=== PATIENT | female | born 1970 | race Caucasian/White ===

== ENCOUNTER → 2016-11-03 | Outpatient (REF) | payer MEDICAID | LOC: M LAB REF 09:15 | PROVIDERS: ATTEND Physician Assistant | DX: N39.0 Urinary tract infection, site not specified (principal) ==

== ENCOUNTER → 2016-11-16 | Outpatient (REF) | payer MEDICAID | LOC: M LAB REF 16:25 | PROVIDERS: ATTEND Physician Assistant | DX: N39.0 Urinary tract infection, site not specified (principal) ==

== ENCOUNTER → 2017-03-08 | Outpatient (REF) | payer MEDICAID ==
[2017-03-08 13:44] LABS: MEAN CORPUSCULAR HEMOGLOBIN 36.1 pg (27.0-33.0); MEAN CORPUSCULAR HGB CONC 33.8 g/dl (32.0-36.5); MEAN CORPUSCULAR VOLUME 106.6 fl (80.0-96.0); RED CELL DISTRIBUTION WIDTH 16.2 % (11.5-14.5)
[2017-03-08 13:59] LABS: BANDS 1 % (< 11); BASOPHILS 2 % (0-4); EOSINOPHILS 1 % (0-5)
[2017-03-08 14:00] LABS: ANISOCYTOSIS 1+; POLYCHROMASIA 1+
[2017-03-08 14:03] LABS: FREE T4 0.99 NG/DL (0.76-1.46)
== END ==
LOC: M SFHCPLAZ 11:04
PROVIDERS: ATTEND Family Medicine
DX: D75.89 Other specified diseases of blood and blood-forming organs (principal); R73.01 Impaired fasting glucose

== ENCOUNTER → 2017-08-23 | Outpatient (REF) | payer OTHER ==
[2017-08-23 12:18] LABS: BASO # 0.1 10^3/uL (0.0-0.2); BASO % 1.3 % (0.0-1.0); EOS # 0.1 10^3/uL (0.0-0.50); EOS % 1.8 % (0.0-3.0); IMMATURE GRANULOCYTE % 0.4 % (0-0); LYMPH # 2.8 10^3/uL (1.5-4.5); LYMPH % 34.9 % (24.0-44.0); MEAN CORPUSCULAR HEMOGLOBIN 35.4 pg (27.0-33.0); MEAN CORPUSCULAR HGB CONC 33.8 g/dl (32.0-36.5); MEAN CORPUSCULAR VOLUME 104.9 fl (80.0-96.0); MONO # 0.6 10^3/uL (0.0-0.8); MONO % 8.1 % (0.0-5.0); NEUTROPHILS # 4.2 10^3/uL (1.8-7.7); NEUTROPHILS % 53.5 % (36.0-66.0); PLATELET COUNT, AUTOMATED 352 10^3/uL (150-450); RED CELL DISTRIBUTION WIDTH 15.9 % (11.5-14.5); WHITE BLOOD COUNT 7.9 10^3/uL (4.0-10.0)
[2017-08-23 12:27] LABS: ALBUMIN 3.5 GM/DL (3.2-5.2); ALBUMIN/GLOBULIN RATIO 1.13 (1.00-1.93); ALKALINE PHOSPHATASE 57 U/L (45-117); ALT/SGPT 21 U/L (12-78); ANION GAP 7 MEQ/L (8-16); AST/SGOT 9 U/L (15-37); BLOOD UREA NITROGEN 12 MG/DL (7-18); CARBON DIOXIDE LEVEL 26 MEQ/L (21-32); CHLORIDE LEVEL 109 MEQ/L (98-107); CHOLESTEROL LEVEL 185 MG/DL (<200); GLOMERULAR FILTRATION RATE > 60.0 (>58); GLUCOSE, FASTING 81 MG/DL (70-105); POTASSIUM SERUM 4.3 MEQ/L (3.5-5.1); SODIUM LEVEL 142 MEQ/L (136-145); TOTAL PROTEIN 6.6 GM/DL (6.4-8.2); TRIGLYCERIDES LEVEL 125 MG/DL (<150)
[2017-08-23 12:29] LABS: VITAMIN B12 LEVEL 516 PG/ML (247-911)
[2017-08-23 14:28] LABS: PRETREATED FOLATE FOR RBCFOL 11.4 NG/ML
== END ==
LOC: M SFHCPLAZ 08:03
PROVIDERS: ATTEND Family Medicine
DX: E53.8 Deficiency of other specified B group vitamins (principal); R73.01 Impaired fasting glucose

== ENCOUNTER → 2018-02-25 | Outpatient (REF) | payer OTHER ==
[2018-02-25 12:45] LABS: BASO # 0.1 10^3/uL (0.0-0.2); BASO % 1.4 % (0.0-1.0); EOS # 0.3 10^3/uL (0.0-0.50); EOS % 3.7 % (0.0-3.0); HEMATOCRIT 43.1 % (36.0-47.0); HEMOGLOBIN 14.8 g/dl (12.0-15.5); IMMATURE GRANULOCYTE % 0.3 % (0-3.0); LYMPH # 2.9 10^3/uL (1.5-4.5); MEAN CORPUSCULAR HEMOGLOBIN 35.6 pg (27.0-33.0); MEAN CORPUSCULAR HGB CONC 34.3 g/dl (32.0-36.5); MEAN CORPUSCULAR VOLUME 103.6 fl (80.0-96.0); MONO # 0.6 10^3/uL (0.0-0.8); NEUTROPHILS # 3.5 10^3/uL (1.8-7.7); NEUTROPHILS % 47.6 % (36.0-66.0); PLATELET COUNT, AUTOMATED 330 10^3/uL (150-450); RED BLOOD COUNT 4.16 10^6/uL (4.00-5.40); RED CELL DISTRIBUTION WIDTH 16.5 % (11.5-14.5); WHITE BLOOD COUNT 7.4 10^3/uL (4.0-10.0)
[2018-02-25 13:23] LABS: ALBUMIN 3.7 GM/DL (3.2-5.2); ALBUMIN/GLOBULIN RATIO 1.09 (1.00-1.93); ALKALINE PHOSPHATASE 55 U/L (45-117); ALT/SGPT 20 U/L (12-78); ANION GAP 5 MEQ/L (8-16); AST/SGOT 15 U/L (7-37); BILIRUBIN,TOTAL 0.4 MG/DL (0.2-1.0); BLOOD UREA NITROGEN 9 MG/DL (7-18); CALCIUM LEVEL 8.8 MG/DL (8.5-10.1); CARBON DIOXIDE LEVEL 26 MEQ/L (21-32); CHLORIDE LEVEL 111 MEQ/L (98-107); CREATININE FOR GFR 0.72 MG/DL (0.55-1.30); GLOMERULAR FILTRATION RATE > 60.0 (>58); GLUCOSE, FASTING 67 MG/DL (70-100); POTASSIUM SERUM 4.3 MEQ/L (3.5-5.1); PTH INTACT 60.9 PG/ML (18.5-88.0); SODIUM LEVEL 142 MEQ/L (136-145); TOTAL 25(OH) VITAMIN D 35.6 NG/ML (30.0-100.0); TOTAL PROTEIN 7.1 GM/DL (6.4-8.2)
[2018-02-26 14:15] LABS: INSULIN LEVEL 4.5 uIU/mL (2.6-24.9)
== END ==
LOC: M SFHCPLAZ 10:00
DX: D75.89 Other specified diseases of blood and blood-forming organs (principal); E55.9 Vitamin D deficiency, unspecified; R73.01 Impaired fasting glucose
CPT/HCPCS: 83525

== ENCOUNTER → 2018-05-17 | Outpatient (REF) | payer OTHER ==
[2018-05-17 12:35] LABS: CONTROL LINE UCG INT CTR LINE PRESENT; URINE PREG TEST NEGATIVE (NEGATIVE)
== END ==
LOC: M LAB REF 12:23
DX: Z32.00 Encounter for pregnancy test, result unknown (principal)

== ENCOUNTER → 2018-08-25 | Outpatient (REF) | payer OTHER ==
[2018-08-25 11:37] LABS: RETIC HEMOGLOBIN EQUIVALENT 39.5 pg (24-36); RETICULOCYTE # 75.7 10^9/L (17-77); RETICULOCYTE % 1.7 % (0.5-1.5)
[2018-08-25 11:45] LABS: HEMATOCRIT 46.4 % (36.0-47.0)
[2018-08-25 12:03] LABS: ESTIMATED AVERAGE GLUCOSE 100 MG/DL (60-110); HEMOGLOBIN A1c 5.1 %
[2018-08-25 12:32] LABS: ALKALINE PHOSPHATASE 58 U/L (45-117); ALT/SGPT 21 U/L (12-78); ANION GAP 9 MEQ/L (8-16); AST/SGOT 13 U/L (7-37); BILIRUBIN,TOTAL 0.5 MG/DL (0.2-1.0); BLOOD UREA NITROGEN 10 MG/DL (7-18); CARBON DIOXIDE LEVEL 24 MEQ/L (21-32); CHLORIDE LEVEL 109 MEQ/L (98-107); CREATININE FOR GFR 0.76 MG/DL (0.55-1.30); GLOMERULAR FILTRATION RATE > 60.0 (>58); GLUCOSE, FASTING 69 MG/DL (70-100); POTASSIUM SERUM 4.8 MEQ/L (3.5-5.1); PTH INTACT 76.8 PG/ML (18.5-88.0); SODIUM LEVEL 142 MEQ/L (136-145); TOTAL PROTEIN 6.8 GM/DL (6.4-8.2)
[2018-08-25 12:33] LABS: ALBUMIN 3.5 GM/DL (3.2-5.2); ALBUMIN/GLOBULIN RATIO 1.06 (1.00-1.93); TOTAL 25(OH) VITAMIN D 37.7 NG/ML (30.0-100.0)
[2018-08-26 11:07] LABS: PRETREATED FOLATE FOR RBCFOL 11.5 NG/ML; RBC FOLATE 520.5 NG/ML (280-791)
== END ==
LOC: M SFHCPLAZ 09:51
DX: E55.9 Vitamin D deficiency, unspecified (principal); R73.01 Impaired fasting glucose; E53.8 Deficiency of other specified B group vitamins

== ENCOUNTER → 2019-03-03 | Outpatient (REF) | payer OTHER ==
[2019-03-03 13:14] LABS: BASO # 0.1 10^3/uL (0.0-0.2); BASO % 1.5 % (0.0-1.0); EOS # 0.1 10^3/uL (0.0-0.50); EOS % 1.5 % (0.0-3.0); HEMATOCRIT 47.7 % (36.0-47.0); HEMOGLOBIN 16.2 g/dl (12.0-15.5); LYMPH # 2.5 10^3/uL (1.5-4.5); LYMPH % 36.5 % (24.0-44.0); MONO # 0.5 10^3/uL (0.0-0.8); MONO % 7.6 % (0.0-5.0); NEUTROPHILS # 3.6 10^3/uL (1.8-7.7); NEUTROPHILS % 52.6 % (36.0-66.0); PLATELET COUNT, AUTOMATED 280 10^3/uL (150-450); WHITE BLOOD COUNT 6.8 10^3/uL (4.0-10.0)
[2019-03-03 13:26] LABS: HEMOGLOBIN A1c 5.4 %
[2019-03-03 13:36] LABS: ALBUMIN 3.7 GM/DL (3.2-5.2); ALT/SGPT 21 U/L (12-78); BILIRUBIN,TOTAL 0.7 MG/DL (0.2-1.0); BLOOD UREA NITROGEN 12 MG/DL (7-18); CALCIUM LEVEL 9.4 MG/DL (8.5-10.1); CARBON DIOXIDE LEVEL 25 MEQ/L (21-32); CHLORIDE LEVEL 108 MEQ/L (98-107); CREATININE FOR GFR 0.91 MG/DL (0.55-1.30); FERRITIN 96 NG/ML (8-252); FREE T4 0.94 NG/DL (0.76-1.46); GLOMERULAR FILTRATION RATE > 60.0 (>58); GLUCOSE, FASTING 78 MG/DL (70-100); IRON (FE) 187 UG/DL (50-170); PERCENT SATURATION 48.2 % (13.2-45.0); POTASSIUM SERUM 4.4 MEQ/L (3.5-5.1); SODIUM LEVEL 141 MEQ/L (136-145); TOTAL IRON BINDING CAPACITY 388 UG/DL (250-450); TOTAL PROTEIN 7.1 GM/DL (6.4-8.2)
[2019-03-03 14:35] LABS: APPEARANCE, URINE HAZY (CLEAR); BACTERIA, URINE AUTO 1+ (NEGATIVE); BILIRUBIN, URINE AUTO NEGATIVE (NEGATIVE); BLOOD, URINE BLOOD 1+ (NEGATIVE); CALCIUM OXALATE CRYSTALS SMALL; COLOR, URINE YELLOW (YELLOW); GLUCOSE, URINE (UA) AUTO NEGATIVE (NEGATIVE); KETONE, URINE AUTO NEGATIVE (NEGATIVE); LEUKOCYTE ESTERASE, URINE AUTO NEGATIVE (NEGATIVE); MALB URINE SIEMENS 13.4 MG/L; MAU/CREAT RATIO 4.1 MCG/MG (0.0-30.0); MUCUS, URINE LARGE (NEGATIVE); NITRITE, URINE AUTO NEGATIVE (NEGATIVE); PROTEIN, URINE AUTO NEGATIVE (NEGATIVE); RBC, URINE AUTO 2 /HPF (0-3); SPECIFIC GRAVITY URINE AUTO 1.025 (1.002-1.035); SQUAMOUS EPITHELIAL CELL UR AU 6 /HPF (0-6); UROBILINOGEN, URINE AUTO 0.2 mg/dL (0.0-2.0); WBC, URINE AUTO 1 /HPF (0-3)
== END ==
LOC: M SFHCPLAZ 10:06
PROVIDERS: ATTEND Family Medicine
DX: D75.89 Other specified diseases of blood and blood-forming organs (principal); R73.01 Impaired fasting glucose

== ENCOUNTER → 2019-04-15 | Outpatient (REF) | payer OTHER | LOC: M LAB REF 12:38 | PROVIDERS: ATTEND Physician Assistant | DX: R30.0 Dysuria (principal) ==

== ENCOUNTER → 2019-09-04 | Outpatient (REF) | payer OTHER ==
[2019-09-04 12:53] LABS: BASO # 0.1 10^3/uL (0.0-0.2); BASO % 1.2 % (0.0-1.0); EOS # 0.2 10^3/uL (0.0-0.5); EOS % 2.1 % (0.0-3.0); HEMATOCRIT 47.3 % (36.0-47.0); HEMOGLOBIN 16.1 g/dl (12.0-15.5); LYMPH # 3.2 10^3/uL (1.5-5.0); LYMPH % 42.5 % (24.0-44.0); MEAN CORPUSCULAR HEMOGLOBIN 36.7 pg (27.0-33.0); MEAN CORPUSCULAR VOLUME 107.7 fl (80.0-96.0); MONO # 0.6 10^3/uL (0.0-0.8); MONO % 8.4 % (0.0-5.0); NEUTROPHILS # 3.5 10^3/uL (1.5-8.5); NEUTROPHILS % 45.7 % (36.0-66.0); PLATELET COUNT, AUTOMATED 271 10^3/uL (150-450); RED BLOOD COUNT 4.39 10^6/uL (4.00-5.40); WHITE BLOOD COUNT 7.6 10^3/uL (4.0-10.0)
[2019-09-04 13:03] LABS: CHOLESTEROL LEVEL 206 MG/DL (<200); CHOLESTEROL RISK RATIO 2.263 (<5); HDL CHOLESTEROL 91 MG/DL (>40); LDL CHOLESTEROL 92 MG/DL (<100); NON-HDL-C 115 MG/DL; TRIGLYCERIDES LEVEL 116 MG/DL (<150)
[2019-09-04 13:09] LABS: VITAMIN B12 LEVEL 712 PG/ML (247-911)
[2019-09-04 14:14] LABS: HEMOGLOBIN A1c 5.1 %
== END ==
LOC: M SFHCPLAZ 09:45
PROVIDERS: ATTEND Family Medicine
DX: E53.8 Deficiency of other specified B group vitamins (principal); R73.01 Impaired fasting glucose; D75.89 Other specified diseases of blood and blood-forming organs

== ENCOUNTER → 2020-08-26 | Outpatient (REF) | payer MEDICARE, MEDICAID ==
[2020-08-26 17:33] LABS: BASO # 0.1 10^3/uL (0.0-0.2); BASO % 1.3 % (0.0-1.0); EOS # 0.2 10^3/uL (0.0-0.5); EOS % 2.1 % (0.0-3.0); HEMOGLOBIN 16.7 g/dl (12.0-15.5); LYMPH % 32.7 % (24.0-44.0); MEAN CORPUSCULAR HEMOGLOBIN 36.1 pg (27.0-33.0); MEAN CORPUSCULAR HGB CONC 32.7 g/dl (32.0-36.5); MEAN CORPUSCULAR VOLUME 110.4 fl (80.0-96.0); MONO # 0.7 10^3/uL (0.0-0.8); MONO % 7.3 % (0.0-5.0); NEUTROPHILS # 5.1 10^3/uL (1.5-8.5); NEUTROPHILS % 56.2 % (36.0-66.0); PLATELET COUNT, AUTOMATED 329 10^3/uL (150-450); RED BLOOD COUNT 4.62 10^6/uL (4.00-5.40); WHITE BLOOD COUNT 9.1 10^3/uL (4.0-10.0)
[2020-08-26 17:50] LABS: ALT/SGPT 26 U/L (12-78); BILIRUBIN,TOTAL 0.7 MG/DL (0.2-1.0); BLOOD UREA NITROGEN 10 MG/DL (7-18); CALCIUM LEVEL 9.3 MG/DL (8.5-10.1); CARBON DIOXIDE LEVEL 27 MEQ/L (21-32); CHLORIDE LEVEL 108 MEQ/L (98-107); FERRITIN 143 NG/ML (8-252); GLOMERULAR FILTRATION RATE > 60.0 (>58); GLUCOSE, FASTING 90 MG/DL (70-100); IRON (FE) 163 UG/DL (50-170); PERCENT SATURATION 40.3 % (13.2-45.0); SODIUM LEVEL 141 MEQ/L (136-145); TOTAL IRON BINDING CAPACITY 404 UG/DL (250-450); TOTAL PROTEIN 7.3 GM/DL (6.4-8.2)
[2020-08-31 15:09] LABS: ERYTHROPOIETIN 5.3 mIU/mL (2.6-18.5); INSULIN LEVEL 8.3 uIU/mL (2.6-24.9)
== END ==
LOC: M SFHCPLAZ 14:12
PROVIDERS: ATTEND Family Medicine
DX: E53.8 Deficiency of other specified B group vitamins (principal); R73.01 Impaired fasting glucose; D75.89 Other specified diseases of blood and blood-forming organs
CPT/HCPCS: 36415; 80053; 81256; 82668; 82728; 83525; 83550; 85025; 85046; G0463

== ENCOUNTER → 2020-09-07 | Outpatient (CLI) | payer MEDICARE, MEDICAID ==
--- NOTE | 2020-09-07 09:22 | REP ---
INDICATION: HTN, MACROCYTOSIS, ERTHROCYTOSIS. COMPARISON: None. TECHNIQUE: COMPLETE ABDOMINAL ULTRASOUND; RENAL ARTERY ULTRASOUND WITH DOPPLER AND COLOR IMAGING FINDINGS: COMPLETE ABDOMINAL ULTRASOUND: There is no hepatomegaly. There are least 3 hyperechoic masses in the right lobe of the liver. Largest 1.6 x 1.6 x 1.2 cm subcapsular the anterior inferior right hepatic lobe. Another near the henrietta hepatis is 1 x 1 x 0.7 cm the 3rd posteriorly in the right hepatic lobe is 1.3 x 1.6 x 1.2 cm. No biliary dilatation, cyst, adjacent ascites or other acute finding. Gallbladder shows adequate distention without stone, sludge or pericholecystic fluid wall thickness is 1.6 mm. Common duct is 3 mm without stone. Very limited evaluation of the pancreas due to bowel gas shadowing. Spleen is 9 x 9 x 2.6 cm, homogeneous and without adjacent fluid. The right kidney is 10.8 x 5.8 x 5.3 cm with an 11 x 11 by 5 mm hypoechoic focus in the upper pole suggesting small cyst. The left kidney is 10.4 x 4.9 x 5.3 cm.. Suggest a column of Farooq. No mass or cyst. The abdominal aorta is maximum diameters of 2 cm proximally, 1.6 cm in the mid aorta and 1.5 cm distally. RENAL ARTERY DOPPLER ULTRASOUND: RIGHT: The right kidney has a length of 10.8 cm. Peak renal artery velocity is 62.7 cm/S. Peak aortic velocity is 69.4 cm/S. The renal aortic ratio 0.9. Resistive index for upper mid and lower pole is a 0.54, 0.52 and 0.51. Acceleration time for the upper, mid and lower poles is 0.033, 0.039 and 0.02 sec. LEFT: Left kidney length is 10.4 cm. Peak renal artery velocity 87.3 cm/S, peak aortic velocity 69.4 cm/S, renal aortic ratio 1.3. Resistive index for upper mid and lower poles is 0.61, 0.53 and 0.53. Acceleration time for upper mid and lower poles is 0.014, 0.033 and 0.017 sec. IMPRESSION: 1. At least 3 hyperechoic foci in the liver which are homogeneous and most consistent with a benign hepatic hemangiomas. Follow-up ultrasound in 6 months would be recommended. 2. Liver is otherwise unremarkable in the gallbladder, common bile duct, spleen, kidneys and aorta were unremarkable. 3. Pancreas limited in evaluation due to gas shadowing. 4. There is no Doppler renal artery ultrasound evidence for renal artery stenosis. <Electronically signed by Heladio Parisi > 09/07/20 0918
== END ==
LOC: M RAD 07:42
PROVIDERS: ATTEND Family Medicine
DX: R93.2 Abnormal findings on diagnostic imaging of liver and biliary tract (principal); D75.1 Secondary polycythemia; D75.89 Other specified diseases of blood and blood-forming organs; I10 Essential (primary) hypertension

== ENCOUNTER 2020-11-28 10:51 | Emergency (ER) | payer MEDICARE, MEDICAID ==
[~2020-11-28] VITALS: Ht 165.1 cm; Wt 86.0 kg
--- OUTSIDE RECORDS SUMMARY | 2020-11-28 11:04 | CCD ---
Author [facility] Address Unknown Phone Unavailable Care Team Providers Care Spray Drier Operator Helper Name Role Phone Caroline Balbuena Unavailable PROBLEMS Type Condition ICD9-CM Code [id number] Code Onset Dates Condition S tatus SNOMED Code Notes Problem IFG (impaired fasting glucose) R73.01 Active 3 47708141 Problem Macrocytosis D75.89 Active 338799746 Problem Nicotine addiction F17.200 Active 77307502 Problem Erythrocytosis D75.1 Active 752234462 Problem Vitamin D deficiency E55.9 Active 87681077 Problem Hypertension, essential I10 Active 17641164 Problem B12 deficiency E53.8 Active 096386828 Problem Herpetic gingivostomatitis B00.2 Active 48594 007 Problem Tinea versicolor B36.0 Active 74283250 Problem Breast cancer screening Z12.39 Active 64746162 8 Problem Cervical cancer screening Z12.4 Active 323769 001 ALLERGIES Allergen (clinical drug ingredient) Drug/Non Drug Allergy do cumented on EMR Reaction Allergy Type Onset Date Status codeine Codeine Sulfate([facility] Code:[address]-19) red bumb s and itching Drug Allergy Active ENCOUNTERS from 1972 to 2020-09-08 Encounter Location Date Provider Diagnosis [address] [address] Aug, Caroline Balbuena IMMUNIZATIONS No Information SOCIAL HISTORY Tobacco Use: Social History Observation Description Date Details (start date - stop date) Former Smoker Sex Assigned At : Social History Observation Description Sex Assigned At Unknown Language: Question Answer Notes Languages spoken: Serbian Temple: Question Answer Notes Temple No muslim beliefs that would impact health care. Sexual Hx: Question Answer Notes Had sex in the last 12 months (vaginal, oral, or anal)? Yes Have you ever had an STD? No with Men only Use protection? Yes How often? Most of the time Alcohol Screening: Question Answer Notes Did you have a drink containing alcohol in the past year? Ye s Points 3 Interpretation Positive How often did you have six or more drinks on one occas ion in the past year? Never (0 points) How many drinks did you have on a typica l day when you were drinking in the past year? 3 or 4 (1 point) How often did you have a drink containing alcohol in t he past year? Two to four times a month (2 points) BMI Care Goal Follow-Up Question Answer Notes Above Normal BMI Follow-Up Giving encouragement to exercise Tobacco Use: Question Answer Notes Are you a: former smoker REASON FOR REFERRAL No Information VITAL SIGNS No information MEDICATIONS Medication SIG (Take, Route, Frequency, Duration) Start Date En d Date Status Chlorthalidone 25 MG 1/2 tab Orally bid for 30 day(s) Aug, Active Vitamin D3 5000 unit 1 tablet Orally Once a day for 30 day(s) Active Vitamin B-12 2000 1 tablet Orally Once a day for 30 day(s) Active Valtrex 1 GM 2 tablets Orally BID for 1 days Active Fluconazole 150 MG 2 tabs now and repeat in 1 week Orally Active Tums 500 MG 2 tablet Orally bid for 30 day(s) February, Active Depo-Provera Intramuscular q 3 mos Activ e Calcium 600+D High Potency 600-400 MG-UNIT 1 tablet food Orally Twice a day for 30 day(s) Active PROCEDURES No Information RESULTS No Results REASON FOR VISIT extremities feel weak MEDICAL (GENERAL) HISTORY Type Description Date Medical History obesity Medical History tinea versicolor Medical History impaired fasting glucose Medical History macrocytosis without anemia Medical History Depo Provera use for control Medical History B12 deficiency-12/2011 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, 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 [facility] Medical History hypertension, essential Surgical History none Hospitalization History none Goals Section No Information Health Concerns No Information MEDICAL EQUIPMENT No Information MENTAL STATUS No Information FUNCTIONAL STATUS No Information ASSESSMENTS No Information PLAN OF TREATMENT Medication Medication Name Sig Start Date Stop Date Fluconazole 150 MG 2 tabs now and repeat in 1 week Orally Chlorthalidone 25 MG 1/2 tab Orally bid for 30 day(s) Aug, Vitamin D3 5000 unit 1 tablet Orally Once a day for 30 day(s) Vitamin B-12 2000 1 tablet Orally Once a day for 30 day(s) Valtrex 1 GM 2 tablets Orally BID for 1 days Calcium 600+D High Potency 600-400 MG-UNIT 1 tablet food Orally Twice a day for 30 day(s) Next Appt Details Provider Name:Caroline Balbuena, 2019-10 11:00:00 AM, [address] [place] [address], [phone], Provider Name:Clemente Olmos, 2020-09-12 0 1:30:00 PM, [address] [place] [address], [phone], Insurance Providers Payer Name Payer Address Payer Phone Insured Name Patient Relati onship to Insured Coverage Start Date Coverage End Date [facility] [address] [facility] [id number] THERESA JOYCE A self [facility]ICAID [facility] [address] [facility] [address] [place]
--- OUTSIDE RECORDS SUMMARY | 2020-11-28 11:04 | CCD ---
Author Author [facility] Organization [facility] Address Unknown Phone Unavailable Care Team Providers Care Delivery Representative Name Role Phone Nickolas Clemente Unavailable PROBLEMS Type Condition ICD9-CM Code OXN34-MX Code Onset Dates Condition S tatus SNOMED Code Notes Problem IFG (impaired fasting glucose) R73.01 Active 3 57151419 Problem Macrocytosis D75.89 Active 801634584 Problem Nicotine addiction F17.200 Active 19332689 Problem Erythrocytosis D75.1 Active 768961368 Problem Vitamin D deficiency E55.9 Active 60052648 Problem Hypertension, essential I10 Active 87398569 Problem B12 deficiency E53.8 Active 715790757 Problem Herpetic gingivostomatitis B00.2 Active 63870 007 Problem Tinea versicolor B36.0 Active 07340935 Problem Breast cancer screening Z12.39 Active 95189139 8 Problem Cervical cancer screening Z12.4 Active 576853 001 ALLERGIES Allergen (clinical drug ingredient) Drug/Non Drug Allergy do cumented on EMR Reaction Allergy Type Onset Date Status codeine Codeine Sulfate([facility] Code:[address]-58) red bumb s and itching Drug Allergy Active ENCOUNTERS from 1972 to 2020-09-12 Encounter Location Date Provider Diagnosis [address] [address] Aug, 020 Clemente Olmos IMMUNIZATIONS No Information SOCIAL HISTORY Tobacco Use: Social History Observation Description Date Details (start date - stop date) Former Smoker Sex Assigned At : Social History Observation Description Sex Assigned At Unknown Language: Question Answer Notes Languages spoken: Luxembourgish Jehovah'S Witness: Question Answer Notes Jehovah'S Witness No evangelical beliefs that would impact health care. Sexual [...] MEDICATIONS Medication SIG (Take, Route, Frequency, Duration) Notes Start Da te End Date Status Calcium 600+D High Potency 600-400 MG-UNIT 1 tablet wi food Orally Twice a day for 30 day(s) Active Chlorthalidone 25 MG 1/2 tab Orally bid for 30 day(s) 2019 Active Fluconazole 150 MG 2 tabs now and repeat in 1 week Orally Active Vitamin B-12 2000 1 tablet Orally Once a day for 30 day(s) Active Depo-Provera Intramuscular q 3 mos Active Vitamin D3 5000 unit 1 tablet Orally Once a day for 30 day(s) Active Tums 500 MG 2 tablet Orally bid for 30 day(s) February, Active Valtrex 1 GM 2 tablets Orally BID for 1 days Active PROCEDURES No Information RESULTS No Results REASON FOR VISIT BP Reading MEDICAL (GENERAL) HISTORY Type Description Date Medical History obesity Medical History tinea versicolor Medical History impaired fasting glucose Medical History macrocytosis without anemia Medical History Depo Provera use for control Medical History B12 deficiency-12/2011 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, 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 [facility] Medical History hypertension, essential Surgical History none Hospitalization History none Goals Section No Information Health Concerns No Information MEDICAL EQUIPMENT No Information MENTAL STATUS No Information FUNCTIONAL STATUS No Information ASSESSMENTS No Information PLAN OF TREATMENT Next Appt Details Provider Name:Clemente Olmos, 2020-12-23 0 1:15:00 PM, [address] [place], [phone], Insurance Providers Payer Name Payer Address Payer Phone Insured Name Patient Relati onship to Insured Coverage Start Date Coverage End Date MEDICAID [employer] [address] [facility] [id number] [place] [facility] [address] [facility] [id number] THERESA JOYCE [facility] reading
--- OUTSIDE RECORDS SUMMARY | 2020-11-28 11:04 | CCD | Continuity of Care Document ---
Author Author [facility] Organization [facility] Address Unknown Phone Unavailable Care Team Providers Care Marketing Production Coordinator Name Role Phone Dwello DALI MCANLLY, Sarah Unavailable Unavailable Allergies, Adverse Reactions, Alerts Substance Reaction Status Criticality codeine Itching, Hives/Skin Rash Active No Information Medications Medication Instructions Dosage Effective Dates (start - stop) Sta tus Comments nitrofurantoin monohydrate/macrocrystals 100 mg capsule 1 tab po BID x 5 days - Active medroxyprogesterone 150 mg/mL intramuscular suspension IM every 10-13 weeks - Active nitrofurantoin monohydrate/macrocrystals 100 mg capsule 1 tab po BID x 5 days - No Longer Active Problems Condition Effective Dates (start - stop) Clinical Status C omments Body mass index (BMI) 31.0-31.9, adult - Body mass index (BMI) 31.0-31.9, adult - Body mass index (BMI) 30.0-30.9, adult - Body mass index (BMI) 32.0-32.9, adult - Frequency of micturition Urgency of urination Hesitancy of micturition Cystitis, unspecified with hematuria Encounter for surveillance of injectable contraceptive Human immunodeficiency virus [HIV] counseling Other sex counseling Encounter for oth general cnsl and advice on contraception Encounter for surveillance of injectable contraceptive 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 Encounter for surveillance of injectable contraceptive Encounter for surveillance of injectable contraceptive Encounter for surveillance of injectable contraceptive Encounter for surveillance of injectable contraceptive Human immunodeficiency virus [HIV] counseling Other sex counseling Encounter for oth general cnsl and advice on contraception Encounter for surveillance of injectable contraceptive 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 Encounter for screening for human papillomavirus (HPV) Encntr screen for infections w sexl mode of transmiss High risk heterosexual behavior Encounter for surveillance of injectable contraceptive Encounter for surveillance of injectable contraceptive Encounter for surveillance of injectable contraceptive Encounter for surveillance of injectable contraceptive Encounter for surveillance of injectable contraceptive Human immunodeficiency virus [HIV] counseling 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 Other sex counseling Encounter for oth general cnsl and advice on contraception Encounter for surveillance of injectable contraceptive Encounter for surveillance of injectable contraceptive Encounter for surveillance of injectable contraceptive Encounter for surveillance of injectable contraceptive Encounter for surveillance of injectable contraceptive Encounter for surveillance of injectable contraceptive Encounter for surveillance of injectable contraceptive Urgency of urination Acute cystitis without hematuria Human immunodeficiency virus [HIV] counseling Obesity, unspecified 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 Encounter for oth general cnsl and advice on contraception Encounter for surveillance of injectable contraceptive Encounter for oth screening for malignant neoplasm of breast Family history of malignant neoplasm of breast Encounter for surveillance of injectable contraceptive Encounter for surveillance of injectable contraceptive Encounter for surveillance of injectable contraceptive Encounter for surveillance of injectable contraceptive STI Counseling Family Planning Counseling CALENDER WIND UP HELPER Exam, Routine WWE HIV Counseling BCM Other, Start Breast screening BCM Other, Surveillance Contraceptive method surveillance - BCM Other, Surveillance BCM Other, Surveillance CALENDER WIND UP HELPER Exam, Routine WWE BCM Other, Start HIV Counseling BCM Other, Surveillance BCM Other, Surveillance BCM Other, Surveillance BCM Other, Surveillance BCM Other, Surveillance CALENDER WIND UP HELPER Exam, Routine WWE BCM Other, Start Procedures Procedure Date URINALYSIS NONAUTO W/O SCOPE OFFICE VISIT, EST URINE CULTURE/COLONY COUNT CVR Blood Pressure CVR Med.Svc. Height/Weight CVR Med.Svc. UTI Treatment CVR Restoration Ecologist.Svc. Other CVR Restoration Ecologist.Svc. STI / H Results Test Name Date and Time Measure Units Reference Range Abnormal Flag St atus Comments Panel Description: Urine Dipstick Final Urine Dipstick 14:31:10 Color: dark yellow; Glucose: negative; Blood: moderate; pH: 7.5; Protein: 1+; Nitrite: positive; Leukocytes: large A Final Advance Directives Directive Yes / No Effective Date File Name No Information Encounters Encounter Description Practice Location Reason(s) For Visit Diagnose s Date Provider Providers Copied on Encounter OFFICE VISIT, EST [facility], [address] [place] [address], [address] [place] [address], tel:[phone] [facility] Urinary Symptoms ( F) (chief complaint) Frequency of micturitionUrgency of urina tionHesitancy of micturitionCystitis, unspecified with hematuria Tatyana Smith. [address] [place] [address], [address] [place] [address], . tel:[phone] Referring Provider: Sarah Pugh, [address] [place] [address], [address] [place] [address]. tel:[phone] [facility], [address] [place] [address], [address] [place] [address], tel:[phone] [facility] Encounter for surve illance of injectable contraceptive Naveed Choudhury. [address] [place] [address], [address] [place] [address], . tel:[phone] Referring Provider: Macey Lucio, [address] [place] [address], [address] [place] [address]. tel:[phone] Provider: ESTER Nurse/CA. [facility], [address] [place] [address], [address] [place] [address], tel:[phone] ZUNILDAOKLISA Wyatt Human immunodeficie ncy virus [HIV] counselingOther sex counselingEncounter for oth general cnsl and advice on contraceptionEncounter for surveillance of injectable contraceptive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Body mass index (BMI) 31.0-31.9, adult Jose Armendariz. [address] [place] [address], [address] [place] [address], [place]. tel:[phone] Referring Provider: Kala Garcia, [address], [place], [id number]. tel:[phone] [facility], [address] [place] [address], [id number], [place] tel:[phone] PPNCNY Wyatt Encounter for surve illance of injectable contraceptive Sherly Barajas. [address] [place] [address], [id number], [place]. tel:[phone] Referring Provider: Jenn Dubois, [address] [place] [address], [id number]. tel:[phone] Provider: ZUNILDANCLISA Nurse/CA. [facility], [address] [place] [address], [id number], [place] tel:[phone] PPNCNY Wyatt Encounter for surve illance of injectable contraceptive Jose Armendariz. [address] [place] [address], [id number], [place]. tel:[phone] Referring Provider: Kala Garcia, [address], [place], [id number]. tel:[phone] [facility], [address] [place] [address], [id number], [place] tel:[phone] PPNCNY Wyatt Encounter for surve illance of injectable contraceptive Sherly Barajas. [address] [place] [address], [id number], [place]. tel:[phone] Referring Provider: Jenn Dubois, [address] [place] [address], [id number]. tel:[phone] Provider: ESTER Nurse/CA. [facility], [address] [place] [address], [id number], [place] tel:[phone] PPOKNY Wyatt Encounter for surve illance of injectable contraceptive Sherly Barajas. [address] [place], [place], [id number], [place]. tel:[phone] Referring Provider: Jenn Dubois, [address] [place], [place], [id number]. tel:[phone] [facility], [address] [place] [address], [id number], [place] tel:[phone] [facility] Human immunodeficie ncy virus [HIV] counselingOther sex counselingEncounter for oth general cnsl and advice on contraceptionEncounter for surveillance of injectable contraceptive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Encounter for screening for human papillomavirus (HPV)Encntr screen for infections w sexl mode of transmissHigh risk heterosexual behaviorBody mass index (BMI) 31.0-31.9, adult Yenifer Jacobs. [address] [place] [address], [id number], [place]. tel:[phone] Referring Provider: Arlene Street, [address] [place] [address], [id number]. tel:[phone] Provider: ESTER Nurse/CASaritha [facility], [address] [place] [address], [id number], [place] tel:[phone] [facility] Encounter for surve illance of injectable contraceptive Court Pugh. [address] [place] [address], [id number], [place]. tel:[phone] Referring Provider: Lexy Yun, [address] [place], [place], [id number]. tel:[phone] Provider: ESTER Nurse/CA. [facility], [address] [place] [address], [id number], [place] tel:[phone] ZUNILDAOKLISA Wyatt Encounter for surve illance of injectable contraceptive Jose Armendariz. [address] [place] [address], [id number], [place]. tel:[phone] Referring Provider: Kala Garcia, [address] [place] [address], [id number]. tel:[phone] Provider: ZUNILDANCLISA Nurse/CA. [facility], [address] [place] [address], [id number], [place] tel:[phone] PPNCNY Wyatt Encounter for surve illance of injectable contraceptive Jose Armendariz. [address] [place] [address], [id number], [place]. tel:[phone] Referring Provider: Kala Garcia, [address] [place] [address], [id number]. tel:[phone] Provider: ESTER Nurse/CA. [facility], [address] [place] [address], [id number], [place] tel:[phone] PPNCLISA Wyatt Encounter for surve illance of injectable contraceptive Jose Armendariz. [address] [place] [address], [id number], [place]. tel:[phone] Referring Provider: Kala Garcia, [address] [place] [address], [id number]. tel:[phone] Provider: ESTER Nurse/CA. [facility], [address] [place] [address], [id number], [place] tel:[phone] PPOKLISA Wyatt Encounter for surve illance of injectable contraceptive Jose Armendariz. [address] [place] [address], [id number], [place]. tel:[phone] Referring Provider: Kala Garcia, [address] [place] [address], [id number]. tel:[phone] Provider: ZUNILDANCLISA Nurse/CA. [facility], [address] [place] [address], [id number], [place] tel:[phone] PPNCNY Wyatt Human immunodeficie ncy virus [HIV] counseling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Other sex counselingEncounter for oth general cnsl and advice on contraceptionEncounter for surveillance of injectable contraceptiveBody mass index (BMI) 30.0-30.9, adult Kourtney Rodrigues. [address] [place], [place], [id number]. tel:[phone] Referring Provider: Lilia Oconnell, [address] [place] [address], [id number]. tel:[phone] [facility], [address] [place] [address], [id number], [place] tel:[phone] PPNCNY Wyatt Encounter for surve illance of injectable contraceptive Kourtney Rodrigues. [address] [place], [place], [id number]. tel:[phone] Referring Provider: Lilia Oconnell, [address] [place] [address], [id number]. tel:[phone] Provider: ESTER Nurse/CA. [facility], [address] [place] [address], [id number], [place] tel:[phone] PPOKNY Wyatt Encounter for surve illance of injectable contraceptive Vivienne Gorman. [address] [place] [address], [id number]. tel:[phone] Referring Provider: Vita Palafox, [address] [place] [address], [id number]. tel:[phone] Provider: ESTER Nurse/CA. [facility], [address] [place] [address], [id number], [place] tel:[phone] [facility] Encounter for surve illance of injectable contraceptive Court Pugh. [address] [place] [address], [id number], [place]. tel:[phone] Referring Provider: Lexy Yun, [address] [place] [address], [id number]. tel:[phone] Provider: PPNCNY Nurse/CA. [facility], [address] [place], [place], [id number], [place] tel:[phone] [facility] Encounter for surve illance of injectable contraceptive Priya Felix. [address] [place], [place], [id number]. tel:[phone] Referring Provider: Elvira Powers, [address] [place] [address], [id number]. tel:[phone] Provider: PPNCNY Nurse/CA. [facility], [address] [place] [address], [id number], [place] tel:[phone] PPOKNY Wyatt Encounter for surve illance of injectable contraceptive Russlibby Elvira. [address] [place], [place], [id number]. tel:[phone] Referring Provider: Elvira Powers, [address] [place] [address], [id number]. tel:[phone] Provider: PPNCNY Nurse/CA. [facility], [address] [place], [place], [id number], [place] tel:[phone] [facility] Encounter for surve illance of injectable contraceptive Charo Ramirez. [address] [place] [address], [id number], [place]. tel:[phone] Referring Provider: Ashley Mancilla, [address] [place] [address], [id number]. tel:[phone] Provider: PPNCNY Nurse/CA. [facility], [address] [place], [place], [id number], [place] tel:[phone] [facility] Urgency of urinatio nAcute cystitis without hematuria Rogerio Anastasiya. [address] [place], [place], [id number]. tel:[phone] Referring Provider: Anastasiya Beatty, [address] [place], [place], [id number]. tel:[phone] [facility], [address] [place], [place], [id number], [place] tel:[phone] [facility] Human immunodeficie ncy virus [HIV] counselingBody mass index (BMI) 32.0-32.9, adultObesity, unspecified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Encounter for oth general cnsl and advice on contraceptionEncounter for surveillance of injectable contraceptiveEncounter for oth screening for malignant neoplasm of breastFamily history of malignant neoplasm of breast King Anastasiya. [address], [place], [id number]. tel:[phone] Referring Provider: Anastasiya Beatty, [address] [place] [address], [id number]. tel:[phone] [facility], [address] [place], [place], [id number], [place] tel:[phone] [facility] Encounter for surve illance of injectable contraceptive Charo Ramirez. [address] [place], [place], [id number], [place]. tel:[phone] Referring Provider: Ashley Mancilla, [address] [place], [place], [id number]. tel:[phone] Provider: ESTER Nurse/CA. [facility], [address] [place], [place], [id number], [place] tel:[phone] ZUNILDAOKLISA Wyatt Encounter for surve illance of injectable contraceptive Charo Ramirez. [address] [place], [place], [id number], [place]. tel:[phone] Referring Provider: Ashley Mancilla, [address] [place], [place], [id number]. tel:[phone] [facility], [address] [place], [place], [id number], [place] tel:[phone] [facility] Encounter for surve illance of injectable contraceptive Norman Mott. [address] [place], [place], [id number], [place]. tel:[phone] Referring Provider: Tiera Austin, [address], [place], [id number]. tel:[phone] [facility], [address] [place] [address], [id number], [place] tel:[phone] [facility] Encounter for surve illance of injectable contraceptive Sharad Levin. [address] [place], [place], [id number]. tel:[phone] Referring Provider: Poonam Orourke, [address] [place], [place], [id number]. tel:[phone] [facility], [address] [place] [address], [id number], [place] tel:[phone] [facility] STI CounselingFamil y Planning CounselingGYN Exam, Routine WWEHIV CounselingBCM Other, StartBreast screening Gaurav Pyle. [address] [place] [address], [id number], [place]. tel:[phone] Referring Provider: Lashanda Khan , [address] [place] [address], [id number]. tel:[phone] [facility], [address] [place] [address], [id number], [place] tel:[phone] [facility] BCM Other, Surveillance Gaurav Lashanda. [address] [place], [place], [id number], [place]. tel:[phone] Referring Provider: Lashanda Khan, [address], [place], [id number]. tel:[phone] [facility] [place], [address] [place], [place], [id number], [place] tel:[phone] PPMARY LOU Wyatt Contraceptive method surve illance Gaurav Lashanda. [address] [place], [place], [id number], [place]. tel:[phone] [facility], [address] [place], [place], [id number], [place] tel:[phone] ESTER Wyatt BCM Other, Surveillance Gaurav Pyle. [address], [place], [id number], [place]. tel:[phone] [facility], [address] [place], [place], [id number], [place] tel:[phone] ESTER Wyatt BCM Other, Surveillance [facility]. [address], [place], [id number]. tel:[phone] [facility], [address] [place], [place], [id number], [place] tel:[phone] ESTER Wyatt CALENDER WIND UP HELPER Exam, Routine W WEBCM Other, StartHIV Counseling Gaurav Pyle. [address] [place], [place], [id number], [place]. tel:[phone] [facility] [place], [address] [place] [address], [id number], [place] tel:[phone] ESTER Wyatt BCM Other, Surveillance Gaurav Pyle. [address], [place], [id number], [place]. tel:[phone] [facility], [address] [place], [place], [id number], [place] tel:[phone] PPNCNY Wyatt BCM Other, Surveillance Norman Mott. [address], [place], [id number], [place]. tel:[phone] [facility], [address] [place], [place], [id number], [place] tel:[phone] PPNCLISA Wyatt BCM Other, Surveillance Norman Mott. [address], [place], [id number], [place]. tel:[phone] [facility], [address] [place] [address], [id number], [place] tel:[phone] ESTER Wyatt BCM Other, Surveillance Norman Mott. [address], [place], [id number], [place]. tel:[phone] Referring Provider: Tiera Austin, [address], [place], [id number]. tel:[phone] [facility], [address] [place] [address], [id number], [place] tel:[phone] ESTER Wyatt BCM Other, Surveillance Norman Mott. [address], [place], [id number], [place]. tel:[phone] [facility], [address] [place] [address], [id number], [place] tel:[phone] ESTER Wyatt CALENDER WIND UP HELPER Exam, Routine WWEBCM O ther, Start Recore Isabelle. [address] [place], [place], [id number], [place]. tel:[phone] Referring Provider: Isabelle Perez, [address] [place], [place], [id number]. tel:[phone] Family History Family Member Diagnosis Age At Onset Mother No history of Stroke Brother No history of Myocardial infarction Mother Hypertension Sister No history of Stroke Sister No history of Myocardial infarction Father No history of Myocardial infarction Mother No history of Myocardial infarction Maternal aunt Cancer, breast Brother No history of Stroke Father No history of Stroke Immunizations Vaccine Date Status Comments tetanus toxoid, adsorbed administered Note: D ates Unknown.Invalid documented admin date was NULL/NULL/1979. ; Source: Source Unspecified Payers Payer name Insurance type Covered democrat ID Authorization(s ) UHC Medicare CI [id number] Medicaid MC [id number] Social History Type Description Quantity Date Captured Comments Alcohol Use Details Unknown Caffeine Use Details Unknown Tobacco Use Status No Information Smoking Status Never smoker Sex Female Vital Signs Date / Time: Height Weight BMI Pulse Rate Blood Pressure Temperatu re Respiratory Rate Body Surface Area Head Circumference BMI percentile Pulse Ox In haled Ox 2:27 PM 65.00 in 190.40 lbs 31.68 kg/meter(2) 1 24/77 mm[Hg] 97.80 F Chief Complaint And Reason For Visit Most recent encounter only, dated '09/13/2020 14:15'. Urinary Symptoms (F) (chief complaint) Reason For Referral Reason For Referral No Information Plan Of Treatment Date Type Action Status Goal Dietary management education, gu idance, and counseling completed Goal Dietary management education, gu idance, and counseling completed Goal Dietary management education, gu idance, and counseling completed Goal Lifestyle education regarding di et completed Appointment Yoly Saavedra BOOKED History Of Present Illness Encounter Date Complaint History Of Present I llness No Information Functional Status Date Functional Assessment No Information Medications Administered Medication Instructions Dosage Effective Dates (start - stop) Sta tus Comments nitrofurantoin monohydrate/macrocrystals 100 mg capsule 1 tab po BID x 5 days - No Longer Active Instructions Date Instruction Additional Informati on Dietary management education, guidance, and counseling Related to Body mass index (BMI) 31.0-31.9, adult Dietary management education, guidance, and counseling Related to Body mass index (BMI) 31.0-31.9, adult Dietary management education, guidance, and counseling Related to Body mass index (BMI) 30.0-30.9, adult Giving encouragement to exercise Related to Body mass index (BMI) 32.0-32.9, adult Lifestyle education regarding diet Relat ed to Body mass index (BMI) 32.0-32.9, adult Assessments Type Assessment Date assessment Frequency of micturition assessment Urgency of urination assessment Hesitancy of micturition assessment Cystitis, unspecified with hematuria Aug Goals Health Concern Goal Type Priority Status Date No Information Medical Equipment Description Device [place] Device Identifier Effective [place] es (start - stop) Status No Information Mental Status Date Cognitive Assessment Orientation - Oriented to ti me, place, person, situation.Normal Orientation Health Concerns Observation Date No Information Concern Status Date No Information Physical Examination Exam Findings Details Abdomen Comments No suprapubic tender ness Abdomen Normal CVA tenderness - Non e. No abdominal tenderness. Neurological Normal Level of consciousne ss - Normal. Orientation - Normal. Psychiatric Normal Orientation - [place] ed to time, place, person & situation.
--- OUTSIDE RECORDS SUMMARY | 2020-11-28 11:04 | CCD | Continuity of Care Document ---
Author Author [facility] Address Unknown Phone Unavailable Care Team Providers Care Air Hammer Stripper Name Role Phone Naveed PT SITTER, Macey Unavailable Unavailable Nurse/CA, [facility] Unavailable Unavailable Allergies, Adverse Reactions, Alerts Substance Reaction Status Criticality codeine Itching, Hives/Skin Rash Active No Information Medications Medication Instructions Dosage Effective Dates (start - stop) Sta tus Comments medroxyprogesterone 150 mg/mL intramuscular suspension IM every 10-13 weeks - Active Problems Condition Effective Dates (start - stop) Clinical Status C omments Body mass index (BMI) 31.0-31.9, adult - Body mass index (BMI) 31.0-31.9, adult - Body mass index (BMI) 30.0-30.9, adult - Body mass index (BMI) 32.0-32.9, adult - Encounter for surveillance of injectable contraceptive Human immunodeficiency virus [HIV] counseling Other sex counseling Encounter for oth general cnsl and advice on contraception Encounter for surveillance of injectable contraceptive 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) w/o abn findings Encounter for surveillance of injectable contraceptive Encounter for surveillance of injectable contraceptive Encounter for surveillance of injectable contraceptive Encounter for surveillance of injectable contraceptive Human immunodeficiency virus [HIV] counseling Other sex counseling Encounter for oth general cnsl and advice on contraception Encounter for surveillance of injectable contraceptive 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) w/o abn findings Encounter for screening for human papillomavirus (HPV) Encntr screen for infections w sexl mode of transmiss High risk heterosexual behavior Encounter for surveillance of injectable contraceptive Encounter for surveillance of injectable contraceptive Encounter for surveillance of injectable contraceptive Encounter for surveillance of injectable contraceptive Encounter for surveillance of injectable contraceptive Human immunodeficiency virus [HIV] counseling 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) w/o abn findings Other [...] virus [HIV] counseling Obesity, unspecified 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) w/o abn findings Encounter [...] injectable contraceptive STI Counseling Family Planning Counseling 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 3 MOS Depo/Medroxyprogesterone Inj. 150 Mg Nurse/CA 020 NURSE ONLY DEPO INJ. RN/PRODUCTION WELDER Only CVR Blood Pressure CVR Med.Svc. Height/Weight CVR Server Security Administrator.Svc. Nutrition CVR Server Security Administrator.Svc. Other Results Test Name Date and Time Measure Units Reference Range Abnormal Flag St atus Comments No Information Advance Directives Directive Yes / No Effective Date File Name No Information Encounters Encounter Description Practice Location Reason(s) For Visit Diagnose s Date Provider Providers Copied on Encounter [facility], [address], [place], [id number], [place] tel:[phone] [facility] Encounter for surve illance of injectable contraceptive Naveed Choudhury. [address], [place], [id number], [place]. tel:[phone] Referring Provider: Macey Lucio, [address] [place] [address], [id number]. tel:[phone] Provider: ESTER Nurse/CA. [facility], [address] [place] [address], [id number], [place] tel:[phone] [facility] Human immunodeficie ncy virus [HIV] counselingOther sex counselingEncounter for oth general cnsl and advice on contraceptionEncounter for surveillance of injectable contraceptive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) w/o abn findingsBody mass index (BMI) 31.0-31.9, adult Jose Armendariz. [address] [place] [address], [id number], [place]. tel:[phone] Referring Provider: Kala Garcia, [address] [place] [address], [id number]. tel:[phone] [facility], [address] [place] [address], [id number], [place] tel:[phone] [facility] Encounter for surve illance of injectable contraceptive Sherly Barajas. [address] [place] [address], [id number], [place]. tel:[phone] Referring Provider: Jenn Dubois, [address] [place] [address], [id number]. tel:[phone] Provider: ESTER Nurse/CA. [facility], [address] [place] [address], [id number], [place] tel:[phone] [facility] Encounter for surve illance of injectable contraceptive Jose Armendariz. [address] [place] [address], [id number], [place]. tel:[phone] Referring Provider: Kala Garcia, [address] [place], [place], [id number]. tel:[phone] [facility], [address] [place] [address], [id number], tel:[phone] PPMARY LOU [facility] Encounter for surve illance of injectable contraceptive Sherly Barajas. [address] [place] [address], [id number], . tel:[phone] Referring Provider: Jenn Dubois, [address] [place] [address], [id number]. tel:[phone] Provider: ESTER Nurse/CA. [facility], [address] [place] [address], [address] [place] [address], tel:[phone] CLEVENY Tr[facility]ull Encounter for surve illance of injectable contraceptive Sherly Barajas. [address] [place] [address], [address] [place] [address], . tel:[phone] Referring Provider: Jenn Dubois, [address] [place] [address], [id number]. tel:[phone] [facility], [address] [place] [address], [address] [place] [address], [place] tel:[phone] ZUNILDAUTLISA [facility] Human immunodeficie ncy virus [HIV] counselingOther sex counselingEncounter for oth general cnsl and advice on contraceptionEncounter for surveillance of injectable contraceptive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) w/o abn findingsEncounter for screening for human papillomavirus (HPV)Encntr screen for infections w sexl mode of transmissHigh risk heterosexual behaviorBody mass index (BMI) 31.0-31.9, adult Yenifer Jacobs. [address] [place] [address], [id number], [place]. tel:[phone] Referring Provider: Arlene Street, [address] [place] [address], [id number]. tel:[phone] Provider: ESTER Nurse/CA. [facility], [address], [place], [id number], [place] tel:[phone] [facility] Encounter for surve illance of injectable contraceptive Court Pugh. [address], [place], [id number], [place]. tel:[phone] Referring Provider: Lexy Yun, [address] [place], [place], [id number]. tel:[phone] Provider: [facility] Nurse/CA. [facility], [address], [place], [id number], [place] tel:[phone] [facility] Encounter for surve illance of injectable contraceptive Jose Armendariz. [address] [place] [address], [id number], [place]. tel:[phone] Referring Provider: Kala Garcia, [address] [place], [place], [id number]. tel:[phone] Provider: PP[facility] Nurse/CA. [facility], [address] [place] [address], [id number], [place] tel:[phone] [facility] Encounter for surve illance of injectable contraceptive Jose Armendariz. [address] [place] [address], [id number], [place]. tel:[phone] Referring Provider: Kala Garcia, [address] [place], [place], [id number]. tel:[phone] Provider: PP[facility]NY Nurse/CA. [facility], [address] [place] [address], [id number], [place] tel:[phone] [facility] Encounter for surve illance of injectable contraceptive Jose Armendariz. [address] [place] [address], [id number], [place]. tel:[phone] Referring Provider: Kala Garcia, [address] [place] [address], [id number]. tel:[phone] Provider: ESTER Nurse/CASaritha [facility], [address] [place] [address], [id number], tel:[phone] [facility] Encounter for surve illance of injectable contraceptive Jose Armendariz. [address] [place] [address], [id number], [place]. tel:[phone] Referring Provider: Kala Garcia, [address] [place] [address], [id number]. tel:[phone] Provider: ESTER Nurse/CA. [facility], [address] [place] [address], [id number], tel:[phone] [facility] Human immunodeficie ncy virus [HIV] counseling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) w/o abn findingsOther sex counselingEncounter for oth general cnsl and advice on contraceptionEncounter for surveillance of injectable contraceptiveBody mass index (BMI) 30.0-30.9, adult Kourtney Rodrigues. [address] [place] [address], [id number]. tel:[phone] Referring Provider: Lilia Oconnell, [address] [place] [address], [id number]. tel:[phone] [facility], [address] [place] [address], [id number], tel:[phone] PPUTNY [facility] Encounter for surve illance of injectable contraceptive Kourtney Rodrigues. [address] [place] [address], [id number]. tel:[phone] Referring Provider: Lilia Oconnell, [address] [place] [address], [id number]. tel:[phone] Provider: ESTER Nurse/CA. [facility], [address], [place], [id number], [place] tel:[phone] [facility] Encounter for surve illance of injectable contraceptive Vivienne Gorman. [address] [place], [place], [id number]. tel:[phone] Referring Provider: Vita Gaetanoernestina, [address] [place], [place], [id number]. tel:[phone] Provider: ESTER Nurse/CA. [facility], [address], [place], [id number], [place] tel:[phone] [facility] Encounter for surve illance of injectable contraceptive Court Pugh. [address], [place], [id number], [place]. tel:[phone] Referring Provider: Lexy Yun, [address] [place], [place], [id number]. tel:[phone] Provider: ESTER Nurse/CA. [facility], [address], [place], [id number], [place] tel:[phone] [facility] Encounter for surve illance of injectable contraceptive Priya Felix. [address] [place], [place], [id number]. tel:[phone] Referring Provider: Elvira Powers, [address] [place], [place], [id number]. tel:[phone] Provider: ZUNILDANCLISA Nurse/CA. [facility], [address], [place], [id number], [place] tel:[phone] [facility] Encounter for surve illance of injectable contraceptive Priya Felix. [address] [place], [place], [id number]. tel:[phone] Referring Provider: Elvira Powers, [address] [place], [place], [id number]. tel:[phone] Provider: ESTER Nurse/CA. [facility], [address] [place] [address], [id number], tel:[phone] [facility] Encounter for surve illance of injectable contraceptive Charo Ramirez. [address] [place], [place], [id number], [place]. tel:[phone] Referring Provider: Ashley Mancilla, [address] [place], [place], [id number]. tel:[phone] Provider: ESTER Nurse/CA. [facility], [address], [place], [id number], [place] tel:[phone] [facility] Urgency of urinatio nAcute cystitis without hematuria King Anastasiya. [address], [place], [id number]. tel:[phone] Referring Provider: Anastasiya Beatty, [address] [place], [place], [id number]. tel:[phone] [facility], [address] [place] [address], [id number], tel:[phone] [facility] Human immunodeficie ncy virus [HIV] counselingBody mass index (BMI) 32.0-32.9, adultObesity, unspecified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) w/o abn findingsEncounter for oth general cnsl and advice on contraceptionEncounter for surveillance of injectable contraceptiveEncounter for oth screening for malignant neoplasm of breastFamily history of malignant neoplasm of breast King Anastasiya. [address] [place], [place], [id number]. tel:[phone] Referring Provider: Anastasiya Beatty, [address], [place], [id number]. tel:[phone] [facility], [address], [place], [id number], [place] tel:[phone] [facility] Encounter for surve illance of injectable contraceptive Charo Ramirez. [address] [place], [place], [id number], [place]. tel:[phone] Referring Provider: Ashley Mancilla, [address] [place], [place], [id number]. tel:[phone] Provider: PPNC[facility] Nurse/CA. [facility], [address], [place], [id number], [place] tel:[phone] [facility] Encounter for surve illance of injectable contraceptive Charo Ramirez. [address] [place], [place], [id number], [place]. tel:[phone] Referring Provider: Ashley Mancilla, [address] [place], [place], [id number]. tel:[phone] [facility], [address] [place] [address], [id number], [place] tel:[phone] [facility] Encounter for surve illance of injectable contraceptive Norman Mott. [address] [place] [address], [id number], [place]. tel:[phone] Referring Provider: Tiera Austin, [address] [place] [address], [id number]. tel:[phone] [facility], [address] [place] [address], [id number], [place] tel:[phone] [facility] Encounter for surve illance of injectable contraceptive Sharad Levin. [address], [place], [id number]. tel:[phone] Referring Provider: Poonam Orourke, [address] [place], [place], [id number]. tel:[phone] [facility] [place] [address] [place] [address], [id number], [place] tel:[phone] [facility] STI CounselingFamil y Planning CounselingGYN Exam, Routine WWEHIV CounselingBCM Other, StartBreast screening Gaurav Pyle. [address] [place] [address], [id number], [place]. tel:[phone] Referring Provider: Lashanda Khan , [address] [place] [address], [id number]. tel:[phone] [facility] [place], [address] [place] [address], [id number], [place] tel:[phone] ESTER [facility] BCM Other, Surveillance Gaurav Pyle. [address] [place] [address], [id number], [place]. tel:[phone] Referring Provider: Lashanda Khan, [address] [place] [address], [id number]. tel:[phone] [facility] [place], [address] [place] [address], [id number], [place] tel:[phone] PPCHARLIENY [facility] Contraceptive method surve illance Gaurav Pyle. [address] [place] [address], [id number], [place]. tel:[phone] [facility] [place], [address] [place] [address], [id number], [place] tel:[phone] [facility] BCM Other, Surveillance Gaurav Pyle. [address] [place] [address], [id number], [place]. tel:[phone] [facility] [place], [address] [place] [address], [id number], [place] tel:[phone] [facility] BCM Other, Surveillance Kourtney Rodrigues. [address], [place], [id number]. 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 [address] [place], [place], [id number], [place]. tel:[phone] [facility] [place], [address], [place], [id number], [place] tel:[phone] [facility] BCM Other, Surveillance Gaurav Pyle. [address], [place], [id number], [place]. tel:[phone] [facility] [place], [address] [place] [address], [id number], [place] tel:[phone] [facility] BCM Other, Surveillance Norman Mott. [address], [place], [id number], [place]. tel:[phone] [facility] [place], [address] [place] [address], [id number], [place] tel:[phone] [facility] BCM Other, Surveillance Norman Mott. [address], [place], [id number], [place]. tel:[phone] [facility] [place], [address] [place] [address], [id number], [place] tel:[phone] [facility] BCM Other, Surveillance Norman Mott. [address], [place], [id number], [place]. tel:[phone] Referring Provider: Tiera Austin, [address] [place] [address], [id number]. tel:[phone] [facility], [address] [place] [address], [id number], tel:[phone] ZUNILDAMARY LOU [facility] BCM Other, Surveillance May- Norman Mott. [address] [place] [address], [id number], . 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 [address] [place] [address], [id number], . tel:[phone] Referring Provider: Isabelle Perez, [address] [place], [place], [address] [place] [address]. tel:[phone] Family History Family Member Diagnosis Age At [...] D ates Unknown.Invalid documented admin date was //1979. ; Source: Source Unspecified Payers Payer name Insurance type Covered libertarian ID Authorization(s ) [employer] Medicare CI [id number] Medicaid [id number] Social History Type Description Quantity Date Captured Comments Alcohol Use Details Unknown Caffeine Use Details Unknown Tobacco Use Status No Information Smoking Status Never smoker Non-Smoking Tobacco Use Details : No Details Available : No Details Available Sex Female Vital Signs Date / Time: Height Weight BMI Pulse Rate Blood Pressure Temperatu re Respiratory Rate Body Surface Area Head Circumference BMI percentile Pulse Ox In haled Ox 12:51 PM 65.00 in 185.00 lbs 30.79 kg/meter(2) 118/6 0 mm[Hg] Chief Complaint And Reason For Visit No Information Reason For Referral Reason For Referral No [...] Dates (start - stop) Sta tus Comments No Information Instructions Date Instruction Additional Informati on Dietary management education, guidance, and counseling Related to Body mass index (BMI) 31.0-31.9, adult Dietary management education, guidance, and counseling Related to Body mass index (BMI) 31.0-31.9, adult Dietary management education, guidance, and counseling Related to Body mass index (BMI) 30.0-30.9, adult Lifestyle education regarding diet Relat ed to Body mass index (BMI) 32.0-32.9, adult Giving encouragement to exercise Related to Body mass index (BMI) 32.0-32.9, adult Assessments Type Assessment Date assessment Encounter for surveillance of injectable contraceptive Goals Health Concern Goal Type Priority Status Date No Information Medical Equipment Description Device [place] Device Identifier Effective Enoch es (start - stop) Status No Information Mental Status Date Cognitive Assessment No Information Health Concerns Observation Date No Information Concern Status Date No Information Physical Examination Exam Findings Details No Information
--- OUTSIDE RECORDS SUMMARY | 2020-11-28 11:04 | CCD ---
Author Author [facility] Organization [facility] Address Unknown Phone Unavailable Care Team Providers Care Wet Wash Assembler Name Role Phone Caroline Balbuena Unavailable PROBLEMS Type Condition ICD9-CM Code [id number] Code Onset Dates Condition S tatus SNOMED Code Notes Problem IFG (impaired fasting glucose) R73.01 Active 3 49936933 Problem Macrocytosis D75.89 Active 526122945 Problem Nicotine addiction F17.200 Active 92479505 Problem Erythrocytosis D75.1 Active 310511050 Problem Vitamin D deficiency E55.9 Active 41506422 Problem Hypertension, essential I10 Active 12045137 Problem B12 deficiency E53.8 Active 609524356 Problem Herpetic gingivostomatitis B00.2 Active 95068 007 Problem Tinea versicolor B36.0 Active 23641758 Problem Breast cancer screening Z12.39 Active 68269796 8 Problem Cervical cancer screening Z12.4 Active 700218 001 ALLERGIES Allergen (clinical drug ingredient) Drug/Non Drug Allergy do cumented on EMR Reaction Allergy Type Onset Date Status codeine Codeine Sulfate([facility] Code:[address]-13) red bumb s and itching Drug Allergy Active ENCOUNTERS from 1972 to 2020-09-27 Encounter Location Date Provider Diagnosis [facility] [place] [address] Aug, Caroline Balbuena Medication side effects T88.7XXA ; Dizzi ness R42 and Body aches R52 IMMUNIZATIONS No Information SOCIAL HISTORY Tobacco Use: Social History Observation Description Date Details (start date - stop date) Former Smoker Sex Assigned At : Social History Observation Description Sex Assigned At Unknown Language: Question Answer Notes Languages spoken: [place] Church: Question Answer Notes Church No advent beliefs that would impact health care. Sexual [...] REASON FOR REFERRAL No Information VITAL SIGNS Weight 186 lbs Aug, Height 65 in Aug, BMI 30.95 kg/m2 Aug, Heart Rate 126 /min Aug, Respiratory Rate 18 /min Aug, Temperature 98.3 degrees Fahrenheit Aug, Oximetry 95% Aug, Blood pressure systolic 110 mm Hg Aug, Blood pressure diastolic 100 mm Hg Aug, MEDICATIONS Medication SIG (Take, Route, Frequency, Duration) Notes Start Da te End Date Status Calcium 600+D High Potency 600-400 MG-UNIT 1 tablet food Orally Twice a day for 30 day(s) Active Chlorthalidone 25 MG 1/2 tab Orally bid for 30 day(s) 03 2019 Active Fluconazole 150 MG 2 tabs [...] Information RESULTS No Results REASON FOR VISIT fu BP. 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 Olmos as scheduled on Saturday (3 days) Continue BP measurement at home twice daily Pt to bring in BP cuff for correlation on Aug, Dizziness (ICD-10 - R42) Aug, Body aches (ICD-10 - R52) PLAN OF TREATMENT Treatment Notes Assessment Notes Clinical Notes Medication side effects Will hold Chlorthalidone for now; recheck with Dr. Olmos as scheduled on Saturday (3 days)Continue BP measurement at home twice dailyPt to bring in BP cuff for correlation on Saturday Treatment Notes Test Name Order Date ELECTROCARDIOGRAM, COMPLETE EKG 2020-09-27 Next Appt Details Provider Name:Clemente Olmos, 2020-12-23 0 1:15:00 PM, [address] [place], [address], Insurance Providers Payer Name Payer Address Payer Phone Insured Name Patient Relati onship to Insured Coverage Start Date Coverage End Date MEDICAID [employer] [address] [facility] [address] [facility] [address] [facility] [address] [facility]
--- OUTSIDE RECORDS SUMMARY | 2020-11-28 11:04 | CCD ---
Author [facility] Organization [facility]st em[facility] Address Unknown Phone Unavailable Care Team Providers Care Network Support Technician Name Role Phone Caroline Balbuena Unavailable PROBLEMS Type Condition ICD9-CM Code [id number] Code Onset Dates Condition S tatus SNOMED Code Notes Problem IFG (impaired fasting glucose) R73.01 Active 3 36138565 Problem Macrocytosis D75.89 Active 201696935 Problem Nicotine addiction F17.200 Active 87079736 Problem Erythrocytosis D75.1 Active 436481122 Problem Vitamin D deficiency E55.9 Active 70760531 Problem Hypertension, essential I10 Active 85712127 Problem B12 deficiency E53.8 Active 848257795 Problem Herpetic gingivostomatitis B00.2 Active 95236 007 Problem Tinea versicolor B36.0 Active 97196455 Problem Breast cancer screening Z12.39 Active 68038830 8 Problem Cervical cancer screening Z12.4 Active 773368 001 ALLERGIES Allergen (clinical drug ingredient) Drug/Non Drug Allergy do cumented on EMR Reaction Allergy Type Onset Date Status codeine Codeine Sulfate([facility] Code:[address]-97) red bumb s and itching Drug Allergy Active ENCOUNTERS from 1972 to 2020-09-28 Encounter Location Date Provider Diagnosis [facility] [place] [address] Aug, Caroline Balbuena Medication side effects T88.7XXA ; Dizzi ness R42 and Body aches R52 IMMUNIZATIONS No Information SOCIAL HISTORY Tobacco Use: Social History Observation Description Date Details (start date - stop date) Former Smoker Sex Assigned At : Social History Observation Description Sex Assigned At Unknown Language: Question Answer Notes Languages spoken: Turkmen Protestant: Question Answer Notes Protestant No sikhism beliefs that would impact health care. Sexual [...] tab Orally bid for 30 day(s) 03 N 2019 Active Fluconazole 150 MG 2 tabs [...] Orally BID for 1 days Active PROCEDURES Procedure Date Ordered Result Body Site ELECTROCARDIOGRAM, COMPLETE EKG 2020-09-09 N/A RESULTS No Results REASON FOR VISIT fu BP. 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 [facility] Medical History hypertension, essential Surgical History none [...] in BP cuff for correlation on Saturday Next Appt Details Provider Name:Clemente Olmos, 2020-12-23 0 1:15:00 PM, [address] [place], [address], Insurance Providers Payer Name Payer Address Payer Phone Insured Name Patient Relati onship to Insured Coverage Start Date [facility] End Date [facility] [address] [facility] [id number] [facility] [place] A self [facility] [address] [facility] [address] [facility] A self
--- OUTSIDE RECORDS SUMMARY | 2020-11-28 11:04 | CCD ---
Author Author [facility] Organization [facility] Address Unknown Phone Unavailable Care Team Providers Care Industrial Roofer Helper Name Role Phone Clemente Olmos Unavailable PROBLEMS Type Condition ICD9-CM Code [id number] Code Onset Dates Condition S tatus SNOMED Code Notes Problem IFG (impaired fasting glucose) R73.01 Active 3 30235646 Problem Macrocytosis D75.89 Active 610858430 Problem Nicotine addiction F17.200 Active 96071213 Problem Erythrocytosis D75.1 Active 874685135 Problem Vitamin D deficiency E55.9 Active 66489185 Problem Hypertension, essential I10 Active 66374652 Problem B12 deficiency E53.8 Active 681275419 Problem Herpetic gingivostomatitis B00.2 Active 97223 007 Problem Tinea versicolor B36.0 Active 79491706 Problem Breast cancer screening Z12.39 Active 28687601 8 Problem Cervical cancer screening Z12.4 Active 700715 001 ALLERGIES Allergen (clinical drug ingredient) Drug/Non Drug Allergy do cumented on EMR Reaction Allergy Type Onset Date Status codeine Codeine Sulfate([facility] Code:[address]-93) red bumb s and itching Drug Allergy Active ENCOUNTERS from 1972 to 2020-09-13 Encounter Location Date Provider Diagnosis [address] [address] 16 Aug, 020 Clemente Olmos IMMUNIZATIONS No Information SOCIAL HISTORY Tobacco Use: Social History Observation Description Date Details (start date - stop date) Former Smoker Sex Assigned At : Social History Observation Description Sex Assigned At Unknown Language: Question Answer Notes Languages spoken: Bangladeshi Yarsanism: Question Answer Notes Yarsanism No yarsani beliefs that would impact health care. 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 Medical History hypertension, essential Surgical History none Hospitalization History none Goals Section No Information Health Concerns No Information MEDICAL EQUIPMENT No Information MENTAL STATUS No Information FUNCTIONAL STATUS No Information ASSESSMENTS No Information PLAN OF TREATMENT Next Appt Details Provider Name:Clemente Olmos, 2020-12-23 0 1:15:00 PM, [address] [place], [address], Insurance Providers Payer Name Payer Address Payer Phone Insured Name Patient Relati onship to Insured Coverage Start Date Coverage End Date MEDICAID [employer] [address] [facility] [id number] [address] A self [facility] [address] [facility] [phone] [facility]ER[facility] JO[facility]
--- OUTSIDE RECORDS SUMMARY | 2020-11-28 11:04 | CCD | Continuity of Care Document ---
Author Author [facility] Organization [facility] Address [address] [place] [address] Phone Care Team Providers Care Montessori Teacher Name Role Phone Dwello Sarah BRUMFIELD Unavailable Unavailable Allergies, Adverse Reactions, Alerts Substance Reaction Status Criticality codeine Itching, Hives/Skin Rash Active No Information Medications Medication Instructions Dosage Effective Dates (start - stop) Sta tus Comments sulfamethoxazole 800 mg-trimethoprim 160 mg tablet 1 tab po bid x 3 d (#6) - Active medroxyprogesterone 150 mg/mL intramuscular suspension IM every 10-13 weeks - Active sulfamethoxazole 800 mg-trimethoprim 160 mg tablet 1 tab po bid x 3 d (#6) - No Longer Active Problems Condition Effective Dates (start - stop) Clinical Status C omments Body mass index (BMI) 31.0-31.9, adult - Body mass index (BMI) 31.0-31.9, adult - Body mass index (BMI) 30.0-30.9, adult - Body mass index (BMI) 32.0-32.9, adult - Acute cystitis without hematuria Frequency of micturition Urgency of urination Hesitancy of micturition Cystitis, unspecified with hematuria Encounter for surveillance of injectable contraceptive Human immunodeficiency virus [HIV] counseling Other sex counseling Encounter for oth general cnsl and advice on contraception Encounter for surveillance of injectable contraceptive 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) w/o abn findings Encounter for surveillance of injectable contraceptive Encounter for surveillance of injectable contraceptive Encounter for surveillance of injectable contraceptive Encounter for surveillance of injectable contraceptive Human immunodeficiency virus [HIV] counseling Other sex counseling Encounter for oth general cnsl and advice on contraception Encounter for surveillance of injectable contraceptive 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) w/o abn findings Encounter for screening for human papillomavirus (HPV) Encntr screen for infections w sexl mode of transmiss High risk heterosexual behavior Encounter for surveillance of injectable contraceptive Encounter for surveillance of injectable contraceptive Encounter for surveillance of injectable contraceptive Encounter for surveillance of injectable contraceptive Encounter for surveillance of injectable contraceptive Human immunodeficiency virus [HIV] counseling 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) w/o abn findings Other [...] virus [HIV] counseling Obesity, unspecified 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) w/o abn findings Encounter [...] injectable contraceptive STI Counseling Family Planning Counseling GAME PROGRAMER Exam, Routine WWE HIV Counseling BCM Other, Start Breast screening BCM Other, Surveillance Contraceptive method surveillance - BCM Other, Surveillance BCM Other, Surveillance GAME PROGRAMER Exam, Routine WWE BCM Other, Start HIV Counseling BCM Other, Surveillance BCM Other, Surveillance BCM Other, Surveillance BCM Other, Surveillance BCM Other, Surveillance GAME PROGRAMER Exam, Routine WWE BCM Other, Start Procedures Procedure Date No Information Results Test Name Date and Time Measure Units Reference Range Abnormal Flag St atus Comments No Information Advance Directives Directive Yes / No Effective Date File Name No Information Encounters Encounter Description Practice Location Reason(s) For Visit Diagnose s Date Provider Providers Copied on Encounter [facility], [address] [place], [place], [id number], [place] tel:[phone] [facility] [place] Acute cystitis without hem aturia Tatyana Smith. [address] [place], [place], [address] [place] [address], [place]. tel:[phone] [facility], [address] [place] [address], [id number], [place] tel:[phone] [facility] Frequency of mictur itionUrgency of urinationHesitancy of micturitionCystitis, unspecified with hematuria Tatyana Smith. [address] [place] [address], [address] [place] [address], [place]. tel:[phone] Referring Provider: Sarah MCNALLY Amna y, [address] [place] [address], [id number]. tel:[phone] [facility], [address] [place] [address], [address] [place] [address], [place] tel:[phone] [facility] Encounter for surve illance of injectable contraceptive Naveed Choudhury. [address] [place] [address], [address] [place] [address], [place]. tel:[phone] Referring Provider: Macey Lucio, [address] [place] [address], [id number]. tel:[phone] Provider: ESTER Nurse/CA. [facility], [address] [place] [address], [address] [place] [address], [place] tel:[phone] [facility] [place] Human immunodeficie ncy virus [HIV] counselingOther sex counselingEncounter for oth general cnsl and advice on contraceptionEncounter for surveillance of injectable contraceptive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) w/o abn findingsBody mass index (BMI) 31.0-31.9, adult Jose Armendariz. [address] [place] [address], [id number], [place]. tel:[phone] Referring Provider: Kala Garcia, [address] [place], [place], [id number]. tel:[phone] [facility], [address] [place], [place], [id number], [place] tel:[phone] [facility] [place] Encounter for surve illance of injectable contraceptive Sherly Barajas. [address] [place], [place], [id number], [place]. tel:[phone] Referring Provider: Jenn Dubois, [address] [place] [address], [id number]. tel:[phone] Provider: [facility] Nurse/CA. [facility], [address] [place] [address], [id number], [place] tel:[phone] [facility] [place] Encounter for surve illance of injectable contraceptive Jose Armendariz. [address] [place] [address], [id number], [place]. tel:[phone] Referring Provider: Kala Garcia, [address] [place], [place], [id number]. tel:[phone] [facility], [address] [place] [address], [id number], [place] tel:[phone] [facility] [place] Encounter for surve illance of injectable contraceptive Sherly Barajas. [address] [place], [id number], [place]. tel:[phone] Referring Provider: Jenn Dubois, [address] [place], [place], [id number]. tel:[phone] Provider: ZUNILDANCNY Nurse/CA. [facility], [address] [place] [address], [id number], [place] tel:[phone] [facility] [place] Encounter for surve illance of injectable contraceptive Sherly Barajas. [address] [place], [id number], [place]. tel:[phone] Referring Provider: Jenn Dubois, [address] [place], [place], [id number]. tel:[phone] [facility], [address] [place] [address], [id number], tel:[phone] [facility] Human immunodeficie ncy virus [HIV] counselingOther sex counselingEncounter for oth general cnsl and advice on contraceptionEncounter for surveillance of injectable contraceptive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) w/o abn findingsEncounter for screening for human papillomavirus (HPV)Encntr screen for infections w sexl mode of transmissHigh risk heterosexual behaviorBody mass index (BMI) 31.0-31.9, adult Yenifer Jacobs. [address] [place] [address], [id number], . tel:[phone] Referring Provider: Arlene Street, [address] [place] [address], [address] [place] [address]. tel:[phone] Provider: ESTER Nurse/CA. [facility], [address], [place], [id number], tel:[phone] [facility] [place] Encounter for surve illance of injectable contraceptive Court Pugh. [address] [place] [address], [id number], [place]. tel:[phone] Referring Provider: Lexy Yun, [address] [place] [address], [id number]. tel:[phone] Provider: ESTER Nurse/CA. [facility], [address] [place] [address], [id number], [place] tel:[phone] [facility] [place] Encounter for surve illance of injectable contraceptive Jose Armendariz. [address] [place] [address], [id number], [place]. tel:[phone] Referring Provider: Kala Garcia, [address] [place], [place], [id number]. tel:[phone] Provider: ESTER Nurse/CA. [facility], [address] [place] [address], [id number], tel:[phone] [facility] [place] Encounter for surve illance of injectable contraceptive Jose Armendariz. [address] [place] [address], [id number], . tel:[phone] Referring Provider: Kala Garcia, [address] [place] [address], [id number]. tel:[phone] Provider: ESTER Nurse/CA. [facility], [address] [place] [address], [id number], tel:[phone] [facility] [place] Encounter for surve illance of injectable contraceptive Jose Armendariz. [address] [place] [address], [id number], . tel:[phone] Referring Provider: Kala Garcia, [address] [place] [address], [id number]. tel:[phone] Provider: ESTER Nurse/CASaritha [facility], [address] [place] [address], [id number], [place] tel:[phone] [facility] [place] Encounter for surve illance of injectable contraceptive Jose Armendariz. [address] [place] [address], [id number], [place]. tel:[phone] Referring Provider: Kala Garcia, [address] [place] [address], [id number]. tel:[phone] Provider: ESTER Nurse/CASaritha [facility], [address] [place] [address], [id number], [place] tel:[phone] [facility] [place] Human immunodeficie ncy virus [HIV] counseling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) w/o abn findingsOther sex counselingEncounter for oth general cnsl and advice on contraceptionEncounter for surveillance of injectable contraceptiveBody mass index (BMI) 30.0-30.9, adult Kourtney Rodrigues. [address] [place] [address], [id number]. tel:[phone] Referring Provider: Lilia Oconnell, [address] [place] [address], [id number]. tel:[phone] [facility], [address] [place] [address], [id number], [place] tel:[phone] [facility] [place] Encounter for surve illance of injectable contraceptive Kourtney Rodrigues. [address] [place], [id number]. tel:[phone] Referring Provider: Lilia Oconnell, [address] [place] [address], [id number]. tel:[phone] Provider: ESTER Nurse/CA. [facility], [address] [place] [address], [id number], [place] tel:[phone] [facility] [place] Encounter for surve illance of injectable contraceptive Vivienne Gorman. [address] [place] [address], [id number]. tel:[phone] Referring Provider: Vita Palafox, [address] [place] [address], [id number]. tel:[phone] Provider: ESTER Nurse/CA. [facility], [address] [place] [address], [id number], [place] tel:[phone] [facility] [place] Encounter for surve illance of injectable contraceptive Court Pugh. [address] [place] [address], [id number], [place]. tel:[phone] Referring Provider: Lexy Yun, [address] [place] [address], [id number]. tel:[phone] Provider: [facility] Nurse/CA. [facility], [address] [place] [address], [id number], tel:[phone] [facility] [place] Encounter for surve illance of injectable contraceptive Russlibby Felix. [address] [place], [place], [id number]. tel:[phone] Referring Provider: Elvira Powers, [address] [place] [address], [id number]. tel:[phone] Provider: ZUNILDANCLISA Nurse/CA. [facility], [address] [place] [address], [id number], tel:[phone] [facility] [place] Encounter for surve illance of injectable contraceptive Priya Felix. [address] [place], [place], [id number]. tel:[phone] Referring Provider: Elvira Powers, [address] [place] [address], [id number]. tel:[phone] Provider: ESTER Nurse/CA. [facility], [address] [place] [address], [id number], [place] tel:[phone] [facility] [place] Encounter for surve illance of injectable contraceptive Charo Ramirez. [address] [place] [address], [id number], [place]. tel:[phone] Referring Provider: Ashley Mancilla, [address] [place] [address], [id number]. tel:[phone] Provider: ESTER Nurse/CA. [facility], [address] [place] [address], [id number], [place] tel:[phone] [facility] [place] Urgency of urinatio nAcute cystitis without hematuria King Anastasiya. [address] [place] [address], [id number]. tel:[phone] Referring Provider: Anastasiya Beatty, [address] [place], [place], [id number]. tel:[phone] [facility], [address], [place], [id number], [place] tel:[phone] [facility] [place] Human immunodeficie ncy virus [HIV] counselingBody mass index (BMI) 32.0-32.9, adultObesity, unspecified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) w/o abn findingsEncounter for oth general cnsl and advice on contraceptionEncounter for surveillance of injectable contraceptiveEncounter for oth screening for malignant neoplasm of breastFamily history of malignant neoplasm of breast King Anastasiya. [address] [place], [place], [id number]. tel:[phone] Referring Provider: Anastasiya Beatty, [address] [place], [place], [id number]. tel:[phone] [facility], [address], [place], [id number], [place] tel:[phone] [facility] Encounter for surve illance of injectable contraceptive Charo Ramirez. [address] [place], [place], [id number], [place]. tel:[phone] Referring Provider: Ashley Mancilla, [address] [place], [place], [id number]. tel:[phone] Provider: ESTER Nurse/CA. [facility], [address], [place], [id number], [place] tel:[phone] [facility] [place] Encounter for surve illance of injectable contraceptive Charo Ramirez. [address] [place], [place], [id number], [place]. tel:[phone] Referring Provider: Ashley Mancilla, [address] [place], [place], [id number]. tel:[phone] [facility] [place], [address], [place], [id number], [place] tel:[phone] [facility] Encounter for surve illance of injectable contraceptive Corytayla Mott. [address] [place], [place], [id number], [place]. tel:[phone] Referring Provider: Tiera Austin, [address] [place], [place], [id number]. tel:[phone] [facility] [place], [address], [place], [id number], [place] tel:[phone] [facility] [place] Encounter for surve illance of injectable contraceptive Sharad Levin. [address] [place], [place], [id number]. tel:[phone] Referring Provider: Poonam Orourke, [address] [place], [place], [id number]. tel:[phone] [facility] [place], [address] [place] [address], [id number], [place] tel:[phone] [facility] STI CounselingFamil y Planning CounselingGYN Exam, Routine WWEHIV CounselingBCM Other, StartBreast screening Gaurav Pyle. [address] [place] [address], [id number], [place]. tel:[phone] Referring Provider: Lashanda Khan , [address] [place], [place], [id number]. tel:[phone] [facility] [place], [address] [place] [address], [id number], [place] tel:[phone] [facility] BCM Other, Surveillance Mychal- Gaurav Pyle. [address] [place] [address], [id number], [place]. tel:[phone] Referring Provider: Lashanda Khan, [address] [place], [place], [id number]. tel:[phone] [facility], [address], [place], [id number], [place] tel:[phone] [facility] LOU [place] Contraceptive method surve illance Gaurav Pyle. [address] [place], [place], [id number], [place]. tel:[phone] [facility], [address], [place], [id number], [place] tel:[phone] ESTER [place] BCM Other, Surveillance Gaurav Pyle. [address] [place], [place], [id number], [place]. tel:[phone] [facility], [address] [place] [address], [id number], [place] tel:[phone] ESTER [place] BCM Other, Surveillance [facility]. [address] [place], [place], [id number]. tel:[phone] [facility], [address] [place] [address], [id number], [place] tel:[phone] ESTER [place] GAME PROGRAMER Exam, Routine W WEBCM Other, StartHIV Counseling Gaurav Pyle. [address] [place], [place], [id number], [place]. tel:[phone] [facility], [address] [place] [address], [id number], [place] tel:[phone] [facility] [place] BCM Other, Surveillance Gaurav Pyle. [address] [place], [place], [id number], [place]. tel:[phone] [facility], [address] [place] [address], [id number], [place] tel:[phone] ESTER [facility] Other, Surveillance Galdenisse Mott. [address] [place] [address], [id number], [place]. tel:[phone] [facility] [place], [address] [place] [address], [id number], [place] tel:[phone] ESTER [place] Other, Surveillance Galdenisse Mott. [address] [place], [place], [id number], [place]. tel:[phone] [facility] [place], [address] [place] [address], [id number], [place] tel:[phone] ZUNILDAHILISA [facility] Other, Surveillance Galdenisse Tiera. [address] [place] [address], [id number], [place]. tel:[phone] Referring Provider: Tiera Austin, [address] [place] [address], [id number]. tel:[phone] [facility] [place], [address] [place] [address], [id number], [place] tel:[phone] ZUNILDAHILISA [facility] Other, Surveillance Galdenisse Poncelle. [address] [place] [address], [id number], [place]. tel:[phone] [facility] [place], [address] [place] [address], [id number], [place] tel:[phone] [facility] GAME PROGRAMER Exam, Routine WWEBCM O ther, Start Ana Walton. [address] [place] [address], [id number], [place]. tel:[phone] Referring Provider: Isabelle Perez, [address] [place], [place], [id number]. tel:[phone] Family History Family Member Diagnosis Age At [...] Unspecified Payers Payer name Insurance type Covered alliance party ID Authorization(s ) UHC Medicare CI [id number] Medicaid [id number] Social History Type Description Quantity Date Captured Comments Alcohol Use Details Unknown Caffeine Use Details Unknown Tobacco Use Status No Information Smoking Status Never smoker Sex Female Vital Signs Date / Time: Height Weight BMI Pulse Rate Blood Pressure Temperatu re Respiratory Rate Body Surface Area Head Circumference BMI percentile Pulse Ox In haled Ox No Information Chief Complaint And Reason For Visit No [...] Dosage Effective Dates (start - stop) Sta Comments sulfamethoxazole 800 mg-trimethoprim 160 mg tablet 1 tab po bid x 3 d (#6) - No Longer Active Instructions Date Instruction [...] 32.0-32.9, adult Assessments Type Assessment Date assessment Acute cystitis without hematuria 2019 Goals Health Concern Goal Type Priority Status Date No Information Medical Equipment Description Device Parrish Device Identifier Effective Enoch es (start - stop) Status No Information Mental Status Date Cognitive Assessment No Information Health Concerns Observation Date No Information Concern Status Date No Information Physical Examination Exam Findings Details No Information
--- OUTSIDE RECORDS SUMMARY | 2020-11-28 11:05 | CCD ---
Author Author [facility] Organization [facility] Address Unknown Phone Unavailable Care Team Providers Care Magistrate Assistant Name Role Phone Nickolas Clemente Unavailable PROBLEMS Type Condition ICD9-CM Code [id number] Code Onset Dates Condition S tatus SNOMED Code Notes Problem IFG (impaired fasting glucose) R73.01 Active 3 39324239 Problem Macrocytosis D75.89 Active 004657333 Problem Nicotine addiction F17.200 Active 19134436 Problem Erythrocytosis D75.1 Active 494156621 Problem Vitamin D deficiency E55.9 Active 46837602 Problem Hypertension, essential I10 Active 84466580 Problem B12 deficiency E53.8 Active 172718556 Problem Herpetic gingivostomatitis B00.2 Active 33863 007 Problem Tinea versicolor B36.0 Active 16069935 Problem Breast cancer screening Z12.39 Active 07746053 8 Problem Cervical cancer screening Z12.4 Active 351789 001 ALLERGIES Allergen (clinical drug ingredient) Drug/Non Drug Allergy do cumented on EMR Reaction Allergy Type Onset Date Status codeine Codeine Sulfate([facility] Code:[address]-42) red bumb s and itching Drug Allergy Active ENCOUNTERS from 1972 to 2020-08-31 Encounter Location Date Provider Diagnosis [address] [address] 03 Aug, 020 Clemente Olmos IMMUNIZATIONS No Information SOCIAL HISTORY Tobacco Use: Social History Observation Description Date Details (start date - stop date) Former Smoker Sex Assigned At : Social History Observation Description Sex Assigned At Unknown Language: Question Answer Notes Languages spoken: Albanian Moravian: Question Answer Notes Moravian No yarsanism beliefs that would impact health care. Sexual [...] Duration) Start Date En d Date Status Fluconazole 150 MG 2 tabs now and repeat in 1 week Orally Active Vitamin D3 5000 unit 1 tablet Orally Once a day for 30 day(s) Active Chlorthalidone 25 MG 1 tab Orally every morning for 30 day(s) 03 No 2019 Active Valtrex 1 GM 2 tablets Orally BID for 1 days Active Depo-Provera Intramuscular q 3 mos Activ e Tums 500 MG 2 tablet Orally bid for 30 day(s) February, Active Vitamin B-12 2000 1 tablet Orally Once a day for 30 day(s) Active Calcium 600+D High Potency 600-400 MG-UNIT 1 tablet food Orally Twice a day for 30 day(s) Active PROCEDURES No Information RESULTS No Results REASON FOR VISIT BP readings MEDICAL (GENERAL) HISTORY Type Description Date Medical History obesity Medical History tinea versicolor Medical History impaired fasting glucose Medical History macrocytosis without anemia Medical History Depo Provera use for control Medical History B12 deficiency-12/2011 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, 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 [facility] Medical History hypertension, essential Surgical History none Hospitalization History none Goals Section No Information Health Concerns No Information MEDICAL EQUIPMENT No Information MENTAL STATUS No Information FUNCTIONAL STATUS No Information ASSESSMENTS No Information PLAN OF TREATMENT Medication Medication Name Sig Start Date Stop Date Vitamin B-12 1999 1 tablet Orally Once a day for 30 day(s) Fluconazole 150 MG 2 tabs now and repeat in 1 week Orally Vitamin D3 5000 unit 1 tablet Orally Once a day for 30 day(s) Chlorthalidone 25 MG 1 tab Orally every morning for 30 day(s) Aug, Valtrex 1 GM 2 tablets Orally BID for 1 days Calcium 600+D High Potency 600-400 MG-UNIT 1 tablet wi th food Orally Twice a day for 30 day(s) Insurance Providers Payer Name Payer Address Payer Phone Insured Name Patient Relati onship to Insured Coverage Start Date Coverage End Date MEDICAID [employer] [address] [facility] [id number] [place] A self [facility] [id number] [facility] [id number] MARIA DEL CARMENNEW RAYMER A [facility]
--- OUTSIDE RECORDS SUMMARY | 2020-11-28 11:05 | CCD ---
Author Author [facility] Organization 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 Name Role Phone Clemente Olmos Unavailable PROBLEMS Type Condition ICD9-CM Code UXB20-UA Code Onset Dates Condition S tatus SNOMED Code Notes Problem IFG (impaired fasting glucose) R73.01 Active 3 42609652 Problem Macrocytosis D75.89 Active 469772603 Problem Nicotine addiction F17.200 Active 78473256 Problem Erythrocytosis D75.1 Active 857989037 Problem Vitamin D deficiency E55.9 Active 84101937 Problem Hypertension, essential I10 Active 96972676 Problem B12 deficiency E53.8 Active 352784455 Problem Herpetic gingivostomatitis B00.2 Active 03058 007 Problem Tinea versicolor B36.0 Active 75384324 Problem Breast cancer screening Z12.39 Active 08732996 8 Problem Cervical cancer screening Z12.4 Active 020434 001 ALLERGIES Allergen (clinical drug ingredient) Drug/Non Drug Allergy do cumented on EMR Reaction Allergy Type Onset Date Status codeine Codeine Sulfate([facility] Code:[address]-34) red bumb s and itching Drug Allergy Active ENCOUNTERS from 1972 to 2020-09-06 Encounter Location Date Provider Diagnosis [id number] [place] [address] Aug, 020 Clemente Olmos Hypertension, essential I10 IMMUNIZATIONS No Information SOCIAL HISTORY Tobacco Use: Social History Observation Description Date Details (start date - stop date) Former Smoker Sex Assigned At : Social History Observation Description Sex Assigned At Unknown Language: Question Answer Notes Languages spoken: [place] Synagogue: Question Answer Notes Synagogue No religion beliefs that would impact health care. 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 [facility] Medical History hypertension, essential Surgical History none Hospitalization History none Goals Section No Information Health Concerns No Information MEDICAL EQUIPMENT No Information MENTAL STATUS No Information FUNCTIONAL STATUS No Information ASSESSMENTS Encounter Date Diagnosis Notes Aug, Hypertension, essential (ICD-10 - I10) PLAN OF TREATMENT Medication Medication Name Sig [...] for 30 day(s) Next Appt Details Provider Name:Clemente Olmos, 2020-09-12 0 1:30:00 PM, [address] [place] [address], [phone], Insurance Providers Payer Name Payer Address Payer Phone Insured Name Patient Relati onship to Insured Coverage Start Date Coverage End Date [facility] [address] [facility] [phone] THERESA JOYCE A self MEDICAID [facility] [address] [facility] [id number] THERESA JOYCE A self
--- OUTSIDE RECORDS SUMMARY | 2020-11-28 11:05 | CCD ---
Author Author [facility] Organization [facility] Address Unknown Phone Unavailable Care Team Providers Care Senior Sustainability Consultant Name Role Phone Vivi Garcia RN TELEHEALTH Unavailable Unavailable Vivi Garciaica RN TELEHEALTH Unavailable Unavailable Vivi Garciaica RN TELEHEALTH Unavailable Unavailable Vivi Garciaica RN TELEHEALTH Unavailable Unavailable Vivi Garciaica RN TELEHEALTH Unavailable Unavailable Vivi Garciassica RN TELEHEALTH Unavailable Unavailable Lucio, Macey Unavailable Unavailable Lucio, Macey Unavailable Unavailable Lucio, Macey Unavailable Unavailable Lisette Dubois Unavailable Unavailable Lisette Dubois PA Unavailable Unavailable Lisette Dubois PA Unavailable Unavailable Lisette Dubois PA Unavailable Unavailable Lisette Dubois PA Unavailable Unavailable Lisette Dubois PA Unavailable Unavailable Lisette Dubois PA Unavailable Unavailable Lisette Dubois PA Unavailable Unavailable Lisette Dubois PA Unavailable Unavailable Lisette Dubois PA Unavailable Unavailable Lisette Dubois PA Unavailable Unavailable Lisette Dubois PA Unavailable Unavailable Lisette Dubois PA Unavailable Unavailable Lisette Dubois PA Unavailable Unavailable Lisette Dubois PA Unavailable Unavailable Lisette Dubois PA Unavailable Unavailable Lisette Dubois PA Unavailable Unavailable Lisette Dubois PA Unavailable Unavailable Lisette Dubois PA Unavailable Unavailable Lisette Dubois PA Unavailable Unavailable Lisette Dubois PA Unavailable Unavailable Lisette Dubois PA Unavailable Unavailable Sarah Reyes Unavailable Unavailable Sarah Reyes Unavailable Unavailable Re-disclosure Warning The records that you are about to access may contain information from federally-assisted alcohol or drug abuse programs. If such information is present, then the following federally mandated warning applies: This information has been disclosed to you from records protected by federal confidentiality rules (42 CFR part 2). The federal rules prohibit you from making any further disclosure of this information unless further disclosure is expressly permitted by the written consent of the person to whom it pertains or as otherwise permitted by 42 CFR part 2. A general authorization for the release of medical or other information is NOT sufficient for this purpose. The Federal rules restrict any use of the information to criminally investigate or prosecute any alcohol or drug abuse patient.The records that you are about to access may contain highly sensitive health information, the redisclosure of which is protected by Article 27-F of the [facility] Public Health law. If you continue you may have access to information: Regarding HIV / AIDS; Provided by facilities licensed or operated by the [facility] Office of Mental Health; or Provided by the [facility] Office for People With Developmental Disabilities. If such information is present, then the following [facility] mandated warning applies: This information has been disclosed to you from confidential records which are protected by state law. State law prohibits you from making any further disclosure of this information without the specific written consent of the person to whom it pertains, or as otherwise permitted by law. Any unauthorized further disclosure in violation of state law may result in a fine or half-way sentence or both. A general authorization for the release of medical or other information is NOT sufficient authorization for further disc losure. Allergies and Adverse Reactions Type Description Substance Reaction Status Data Source(s ) codeine Codeine Sulfate Codeine red bumbs and itching Active eCW1 ([facility]) Family History Family Member Name Family Member Gender Family Member Status Date o f Status Description Data Source(s) Unknown Female Diagnosis 08/30/2015 12:00:00 AM EST [facility] ([facility]) Unknown Female Diagnosis 08/30/2015 12:00:00 AM EST [facility] ([facility]) Unknown Female Diagnosis 06/24/2013 12:00:00 AM EDT [facility] ([facility]) Encounters Encounter Providers Location Date Indications Data Source(s ) Attender: Sarah [place] 09:25:00 AM EST - 09/21/2020 09:25:00 AM EST Acute cystitis without hematuria [facility] ([facility]) Acute cystitis without hematuria OutpatientOFFICE VISIT, EST Attender: Sarah NORMAN [place] 09/13/2020 02:15:00 PM EST - 09/13/2020 02:15:00 PM EST Cystitis, unspecified with hematuriaHesitancy of micturitionUrgency of urinationFrequency of micturition [facility] ([facility]) Cystitis, unspecified with hematuria Hesitancy of micturition Urgency of urination Frequency of micturition Unknown [address] [place] [address] 09/12/2020 12:00:00 AM EST eCW1 ([facility] [place] [address] [facility] [place] [address] 09/12/2020 12:00:00 AM EST eCW1 ([facility]) Attender: Macey NORMAN [place] 020 12:50:00 PM EST - 09/09/2020 12:50:00 PM EST Encounter for surveillance of injectable contraceptive [facility] ([facility]) Encounter for surveillance of injectable contraceptive Outpatient [address] [facility] [place] [address] 09/09/2020 12:00:00 AM EST eCW1 ([facility]) Unknown [address] [facility] [place] [address] 09/08/2020 12:00:00 AM EST eCW1 ([facility]) Unknown [address] [facility] [place] [address] 09/05/2020 12:00:00 AM EST eCW1 ([facility]) Unknown [address] [facility] [place] [address] 08/30/2020 12:00:00 AM EST eCW1 ([facility]) Outpatient [address] [facility] [place] [address] 08/30/2020 12:00:00 AM EST eCW1 ([facility]) [place] [address] [facility] [place] [address] 08/26/2020 12:00:00 AM EDT eCW1 ([facility]) [facility] 11:06:00 AM EDT - 07/14/2020 11:06:00 AM EDT [facility] ([facility]) OutpatientPREV VISIT, EST, AGE 40-64 Attender: Kala joyner RN TELEHEALTH [facility] 06/22/2020 01:00:00 PM EDT - 06/22/2020 01:00:00 PM ED T Body mass index (BMI) 31.0-31.9, adultEncntr for artist agent 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) (routine) w/o abn findingsEncounter for surveillance of injectable contraceptiveEncounter for oth general cnsl and advice on contraceptionOther sex counselingHuman immunodeficiency virus [HIV] counseling [facility] ([facility]) Body mass index (BMI) 31.0-31.9, adult Encntr for artist agent 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) (routine) w/o abn findings Encounter for surveillance of injectable contraceptive Encounter for oth general cnsl and advic e on contraception Other sex counseling Human immunodeficiency virus [HIV] couns eling Attender: Jenn MCNALLY [facility] 03/28 01:10:00 PM EDT - 04/07/2020 01:10:00 PM EDT Encounter for surveillance of injectable contraceptive [facility] ([facility]) Encounter for surveillance of injectable contraceptive [place] [address] [facility] [place] [address] 02/25/2020 12:00:00 AM EDT eCW1 ([facility]) [facility] [place] [address] [facility] [place] [address] 02/25/2020 12:00:00 AM EDT eCW1 ([facility]) [facility] [place] [address] [facility] [place] [address] 02/08/2020 12:00:00 AM EDT eCW1 ([facility]) Attender: Kala Jose RAYA PPNCNY [place] 01/13/2020 01:10:00 PM EDT - 01/13/2020 01:10:00 PM EDT Encounter for surveillance of injectable contraceptive [facility] ([facility]) Encounter for surveillance of injectable contraceptive Attender: Jenn MCNALLY PPNC[facility] [place] 09/29 01:50:00 PM EST - 10/27/2019 01:50:00 PM EST Encounter for surveillance of injectable contraceptive [facility] ([facility]) Encounter for surveillance of injectable contraceptive Medications Medication Brand Name Start Date Product Form Dose Route Admi nistrative Instructions Pharmacy Instructions Status Indications Reaction Description Data Source(s) Sulfamethoxazole 800 MG / Trimethoprim 1 60 MG Oral Tablet sulfamethoxazole 800 mg-trimethoprim 160 mg tablet sulfamethoxazole 800 mg-trimethoprim 160 mg tablet 09/21/2020 12:00:00 AM EST completed 1 tab po bid x 3 d (#6) [facility] ([facility]) Medication administered onsite Sulfamethoxazole 800 MG / Trimethoprim 160 MG Oral Tab let 800-160 mg SULFAMETHOXAZOLE/TRIMETHOPRIM 09/21/2020 12:00:00 AM EST tablet 6 TAKE ONE TABLET BY MOUTH TWICE A DAY FOR 3 DAYS TAKE ONE TABLET BY MOUTH TWICE A DAY FOR 3 DAYS SOLD: 09/21/2020 [facility] Sulfamethoxazole 800 MG / Trimethoprim 1 60 MG Oral Tablet sulfamethoxazole 800 mg-trimethoprim 160 mg tablet sulfamethoxazole 800 mg-trimethoprim 160 mg tablet 09/21/2020 12:00:00 AM EST active 1 tab po bid x 3 d (#6) [facility] ([facility]) 100 mg 09/13/2020 12:00:00 AM EST capsule 10 TAKE ONE CAPSULE BY MOUTH TWICE A DAY FOR 5 DAYS TAKE ONE CAPSULE BY MOUTH TWICE A DAY FOR 5 DAYS SOLD: 09/13/2020 [facility] NITROFURANTOIN, MACROCRYSTALS 25 MG / Ni trofurantoin, Monohydrate 75 MG Oral Capsule nitrofurantoin monohydrate/macrocrystals 100 mg capsule nitrofurantoin monohydrate/macrocrystals 100 mg capsule 09/13/2020 12:00:00 AM EST completed 1 tab po BID x 5 days [facility] Medication administered onsite NITROFURANTOIN, MACROCRYSTALS 25 MG / Ni trofurantoin, Monohydrate 75 MG Oral Capsule nitrofurantoin monohydrate/macrocrystals 100 mg capsule nitrofurantoin monohydrate/macrocrystals 100 mg capsule 09/13/2020 12:00:00 AM EST active 1 tab po BID x 5 days [facility] ([facility] 25 mg 08/30/2020 12:00:00 AM EST tablet 30 TAKE ONE TABLET BY MOUTH EVERY MORNING TAKE ONE TABLET BY MOUTH EVERY MORNING SOLD: 08/31/2020 [facility] Chlorthalidone 25 MG Oral Tablet Chlorthalidone 25 MG 2019 12:00:00 AM EST active Chlorthalidone 25 MG eCW1 ([facility]) Chlorthalidone 25 MG Oral Tablet Chlorthalidone 25 MG 2019 12:00:00 AM EST active Chlorthalidone 25 MG eCW1 ([facility]) Chlorthalidone 25 MG Oral Tablet Chlorthalidone 25 MG 2019 12:00:00 AM EST active Chlorthalidone 25 MG eCW1 ([facility]) Chlorthalidone 25 MG Oral Tablet Chlorthalidone 25 MG 2019 12:00:00 AM EST active Chlorthalidone 25 MG eCW1 ([facility]) Chlorthalidone 25 MG Oral Tablet Chlorthalidone 25 MG 2019 12:00:00 AM EST active Chlorthalidone 25 MG eCW1 ([facility]) Chlorthalidone 25 MG Oral Tablet Chlorthalidone 25 MG 2019 12:00:00 AM EST active Chlorthalidone 25 MG eCW1 ([facility]) Chlorthalidone 25 MG Oral Tablet Chlorthalidone 25 MG 2019 12:00:00 AM EST active Chlorthalidone 25 MG eCW1 ([facility]) Chlorthalidone 25 MG Oral Tablet Chlorthalidone 25 MG 2019 12:00:00 AM EST active Chlorthalidone 25 MG eCW1 ([facility]) Chlorthalidone 25 MG Oral Tablet Chlorthalidone 25 MG 2019 12:00:00 AM EST active Chlorthalidone 25 MG eCW1 ([facility]) 1 gram 08/27/2020 12:00:00 AM EDT tablet 4 TAKE TWO TABLETS BY MOUTH TWICE A DAY FOR 1 DAY TAKE TWO TABLETS BY MOUTH TWICE A DAY FOR 1 DAY SOLD: 2019 [facility] 600 mg(1,500mg) -400 unit 08/27/2020 12:00:00 AM EDT tablet 60 TAKE ONE TABLET BY MOUTH TWICE A DAY WITH FOOD TAKE ONE TABLET BY MOUTH TWICE A DAY WIT H FOOD SOLD: 08/30/2020 [facility] medroxyprogesterone acetate 150 MG/ML In jectable Suspension medroxyprogesterone 150 mg/mL intramuscular suspension medroxyprogesterone 150 mg/mL intramuscu lar suspension 06/22/2020 12:00:00 AM EDT active IM every 10-13 weeks [facility] ([facility]) 500 mg 06/02/2020 12:00:00 AM EDT tablet 14 TAKE ONE TABLET BY MOUTH EVERY 12 HOURS FOR 7 DAYS TAKE ONE TABLET BY MOUTH EVERY 12 HOURS FOR 7 DAYS KALLIE [facility] 75 mg 05/26/2020 12:00:00 AM EDT tablet,delayed release (DR/EC) 20 TAKE ONE TABLET BY MOUTH TWICE A DAY FOR 10 DAYS TAKE ONE TABLET BY MOUTH TWICE A DAY FOR 10 DAYS SOLD: 05/26/2020 [facility] medroxyprogesterone acetate 150 MG/ML In jectable Suspension medroxyprogesterone 150 mg/mL intramuscular suspension medroxyprogesterone 150 mg/mL intramuscu lar suspension 04/07/2020 12:00:00 AM EDT complet ed IM every 10-13 weeks [facility] ([facility]) 600 mg(1,500mg) -400 unit 02/25/2020 12:00:00 AM EDT tablet 60 TAKE ONE TABLET BY MOUTH TWICE A DAY WITH FOOD TAKE ONE TABLET BY MOUTH TWICE A DAY WIT H FOOD SOLD: 02/26/2020 [facility] 1 gram 02/25/2020 12:00:00 AM EDT tablet 4 TAKE TWO TABLETS BY MOUTH TWICE A DAY TAKE TWO TABLETS BY MOUTH TWICE A DAY SOLD: 02/26/2020 [facility] 1 gram 02/25/2020 12:00:00 AM EDT tablet 4 TAKE TWO TABLETS BY MOUTH TWICE A DAY TAKE TWO TABLETS BY MOUTH TWICE A DAY SOLD: 04/08/2020 [facility] 1 gram 09/11/2019 12:00:00 AM EST tablet 4 TAKE TWO TABLETS BY MOUTH TWICE A DAY TAKE TWO TABLETS BY MOUTH TWICE A DAY SOLD: 10/06/2019 [facility] medroxyprogesterone acetate 150 MG/ML In jectable Suspension medroxyprogesterone 150 mg/mL intramuscular suspension medroxyprogesterone 150 mg/mL intramuscu lar suspension 05/26/2019 12:00:00 AM EDT complet ed IM every 10-13 weeks [facility] ([facility]) Insurance Providers Payer name Policy type / Coverage type Policy ID Covered alliance party ID Covered alliance party's relationship to patel Policy Patel Plan Information EMEDNY [id number] SP [id number] [facility] [id number] SP [id number] [facility] [id number] SP [id number] Medicaid Medicaid 35 self 35 EMEDNY [id number] SP [id number] [facility] [id number] SP [id number] [facility]) O [id number] S [id number] MEDICAID M [id number] MEDICARE C [id number] S [id number] [facility]([place]) O [id number] S [id number] [facility] [id number] SP [id number] [facility] [id number] SP [id number] MEDICAID [id number] SP [id number] [facility] [place] [id number] ANSI-Medicaid [id number] ANSI-Medicaid [id number] ANS-Medicaid [id number] ANS-Medicaid [id number] ANS-Medicaid [id number] [facility] [place] [id number] [facility] [place] [id number] [facility] [id number] MEDICAID P UNAVAILABLE S UNAVAILA BLE [id number] Problems, Conditions, and Diagnoses Code Display Name Description Problem Type Effective Dates Data Source(s) D75.1 [id number] Erythrocytosis Problem 08/30/2020 12:00:00 A M EST [facility] ([facility]) I10 [id number] Hypertension, essential Problem 08/26/2020 1 2:00:00 AM EDT [facility] ([facility]) Surgeries/Procedures Procedure Description Date Indications Data Source(s) CVR Lapping Machine Operator.Svc. STI / H 09/13/2020 12:00:00 AM EST - 09/13/2020 12:00:00 AM EST [facility] ([facility]) CVR Lapping Machine Operator.Svc. Other 09/13/2020 12:00:00 AM EST - 2019 12:00:00 AM EST [facility] ([facility]) CVR Med.Svc. UTI Treatment 09/13/2020 12 :00:00 AM EST - 09/13/2020 12:00:00 AM EST [facility] CVR Med.Svc. Height/Weight 09/13/2020 12 :00:00 AM EST - 09/13/2020 12:00:00 AM EST [facility] ([facility]) CVR Blood Pressure 09/13/2020 12:00:00 AM EST - 2019 12:00:00 AM EST [facility] ([facility]) URINE CULTURE/COLONY COUNT 09/13/2020 12 :00:00 AM EST - 09/13/2020 12:00:00 AM EST [facility] ([facility]) OFFICE VISIT, EST 09/13/2020 12:00:00 AM EST - 020 12:00:00 AM EST [facility] ([facility]) URINALYSIS NONAUTO W/O SCOPE 09/13/2020 12:00:00 AM EST - 09/13/2020 12:00:00 AM EST [facility] ([facility]) ECG ROUTINE ECG W/LEAST 12 LDS W/I&R 09/09/2020 12:00: 00 AM EST eCW1 ([facility]) CVR Lapping Machine Operator.Svc. Other 09/09/2020 12:00:00 AM EST - 2019 12:00:00 AM EST [facility] ([facility]) CVR Lapping Machine Operator.Svc. Nutrition 09/09/2020 12:00: 00 AM EST - 09/09/2020 12:00:00 AM EST [facility] ([facility]) CVR Med.Svc. Height/Weight 09/09/2020 12 :00:00 AM EST - 09/09/2020 12:00:00 AM EST [facility] ([facility]) CVR Blood Pressure 09/09/2020 12:00:00 AM EST - 2019 12:00:00 AM EST [facility] ([facility]) NURSE ONLY DEPO INJ. RN/REGISTERED NURSE PRACTITIONER Only 020 12:00:00 AM EST - 09/09/2020 12:00:00 AM EST [facility] ([facility]) Depo/Medroxyprogesterone Inj. 150 Mg Nurse/CA 09/09/2020 12:00:00 AM EST - 09/09/2020 12:00:00 AM EST [facility] ([facility]) CVR BC Ending Method HORM.INJ. 3 MOS 12:00:00 AM EST - 09/09/2020 12:00:00 AM EST [facility] ([facility]) CVR Med.Svc. Extremities 06/22/2020 12:0 0:00 AM EDT - 06/22/2020 12:00:00 AM EDT [facility] ([facility]) CVR Med.Svc. Abdominal Palp. 06/22/2020 12:00:00 AM EDT - 06/22/2020 12:00:00 AM EDT [facility] ([facility]) CVR Med.Svc. Breast Exam 06/22/2020 12:0 0:00 AM EDT - 06/22/2020 12:00:00 AM EDT [facility] ([facility]) CVR Med.Svc. Heart/Lung Ausc. 06/22/2020 12:00:00 AM EDT - 06/22/2020 12:00:00 AM EDT [facility] ([facility]) CVR Med.Svc. Thyroid Palp. 06/22/2020 12 :00:00 AM EDT - 06/22/2020 12:00:00 AM EDT [facility] ([facility]) CVR Med.Svc. Height/Weight 06/22/2020 12 :00:00 AM EDT - 06/22/2020 12:00:00 AM EDT [facility] ([facility]) CVR Blood Pressure 06/22/2020 12:00:00 AM EDT - 2019 12:00:00 AM EDT [facility] ([facility]) NURSE ONLY DEPO INJ. RN/REGISTERED NURSE PRACTITIONER Only 020 12:00:00 AM EDT - 06/22/2020 12:00:00 AM EDT [facility] ([facility]) Depo/Medroxyprogesterone Inj. 150 Mg Nurse/CA 06/22/2020 12:00:00 AM EDT - 06/22/2020 12:00:00 AM EDT [facility] ([facility] CVR BC Ending Method HORM.INJ. 3 MOS 12:00:00 AM EDT - 06/22/2020 12:00:00 AM EDT [facility] ([facility]) HCS Without Test 06/22/2020 12:00:00 AM EDT - 06/22/20 20 12:00:00 AM EDT [facility] ([facility]) PREV VISIT, EST, AGE 40-64 06/22/2020 12 :00:00 AM EDT - 06/22/2020 12:00:00 AM EDT [facility] ([facility]) CVR Lapping Machine Operator.Svc. Other 04/07/2020 12:00:00 AM EDT - 2019 12:00:00 AM EDT [facility] ([facility]) CVR Lapping Machine Operator.Svc. Contraceptive 04/07/2020 12 :00:00 AM EDT - 04/07/2020 12:00:00 AM EDT [facility] ([facility]) CVR Med.Svc. Height/Weight 04/07/2020 12 :00:00 AM EDT - 04/07/2020 12:00:00 AM EDT [facility] ([facility]) CVR Blood Pressure 04/07/2020 12:00:00 AM EDT - 2019 12:00:00 AM EDT [facility] ([facility]) NURSE ONLY DEPO INJ. RN/REGISTERED NURSE PRACTITIONER Only 020 12:00:00 AM EDT - 04/07/2020 12:00:00 AM EDT [facility] ([facility]) Depo/Medroxyprogesterone Inj. 150 Mg Nurse/CA 04/07/2020 12:00:00 AM EDT - 04/07/2020 12:00:00 AM EDT [facility] ([facility] CVR BC Ending Method HORM.INJ. 3 MOS 08/2020 12:00:00 AM EDT - 04/07/2020 12:00:00 AM EDT [facility] ([facility]) Injection Or Lab Only Visit Est 04/07/20 20 12:00:00 AM EDT - 04/07/2020 12:00:00 AM EDT [facility] ([facility]) TeleMedicine Est. Pt. Level 4 02/25/2020 12:00:00 AM E DT eCW1 ([facility]) CVR Lapping Machine Operator.Svc. Other 01/13/2020 12:00:00 AM EDT - 2019 12:00:00 AM EDT [facility] ([facility]) CVR Lapping Machine Operator.Svc. Nutrition 01/13/2020 12:00: 00 AM EDT - 01/13/2020 12:00:00 AM EDT [facility] ([facility]) CVR Lapping Machine Operator.Svc. Contraceptive 01/13/2020 12 :00:00 AM EDT - 01/13/2020 12:00:00 AM EDT [facility] ([facility]) CVR Med.Svc. Height/Weight 01/13/2020 12 :00:00 AM EDT - 01/13/2020 12:00:00 AM EDT [facility] ([facility]) CVR Blood Pressure 01/13/2020 12:00:00 AM EDT - 2019 12:00:00 AM EDT [facility] ([facility]) NURSE ONLY DEPO INJ. RN/REGISTERED NURSE PRACTITIONER Only 020 12:00:00 AM EDT - 01/13/2020 12:00:00 AM EDT [facility] ([facility]) Depo/Medroxyprogesterone Inj. 150 Mg Nurse/CA 01/13/2020 12:00:00 AM EDT - 01/13/2020 12:00:00 AM EDT [facility] ([facility]) CVR BC Ending Method HORM.INJ. 3 MOS 12:00:00 AM EDT - 01/13/2020 12:00:00 AM EDT [facility] ([facility]) Results ID Date Data Source [id number] 09/13/2020 02:31:10 PM EST [facility] ([facility]) Name Value Range Interpretation Code Description Data Donna rce(s) Supporting Document(s) Color: dark yellow; Glucose: negative; Blood: moderate; pH: 7.5; Protein: 1+; Nitrite: positive; Leukocytes: large Abnormal (applies to non-numeric results) Urine Dipstick [facility] ([facility]) ID Date Data Source [id number] 07/08/2020 12:00:00 AM EDT [facility] Kala Garcia Tyre Finisher And Examiner Patient Name: THERESA JOY[address] [place] [address] Date [facility] : 1970[facility] [id number] Date of Exam: 07/08/2020#: Fax: [phone] EXAM: MAMMO SCREENING WITH CADCLINICAL INFORMATION: Screening.Based on the personal and family history information your patient suppliedat the time of imaging,her lifetime risk of breast cancer estimated by theTyrer-Cuzick model is 21.4%. If anything changes in the personal and/orfamily history, this percentage could increase or decrease. Currently, the[facility] and [place] [employer] recommendadjunctive breast MRI screening starting at age 30 for women with a >20-25%lifetime risk of developing breast cancer.Digital screening (2D) mammography was performed bilaterally in the CC andMLO projections. Additionally, breast tomosynthesis (3D mammography) wasperformed bilaterally in the CC and MLO projections. Today's exam wascompared to the prior exam(s).By history, the patient has no complaints of a palpable breast abnormalityor other significant breast complaints.The patient states last clinical breast exam was in May of 2020.The breasts are unchanged in size and shape. There are no monalisa-soft tissuedensities or spiculated masses. There is no internal architecturaldistortion. There are no suspicious monalisa-calcific clusters. Skinthickening or nipple retraction is not present.The Volpara volumetric breast density category is B, there are scatteredareas of fibroglandular density.IMPRESSION:BI-RADS Category 1 - Negative Mammogram. Stable mammogram. There is noevidence of malignant alteration of the breasts. Followup examinationrecommended in one year.This mammogram was read with the assistance of [employer], an FDAapproved computer aided detection system for mammography.Negative x-ray reports should not delay surgical consultation if a dominantor clinically suspicious mass is present.Not all breast cancers can be identified by mammography. Therefore, werecommend that you continue to perform regular breast self-examination andphysical examination and then promptly contact your physician of anyconcerns or changes.Adenosis and dense breasts may obscure an underlying neoplasm.DAVE Foster/Linda you for referring THERESA JOYCE to our office.Electronically Signed - ELIJAH MALDONADO DO 07/11/20 13:11 Name Value Range Interpretation Code Description Data Donna rce(s) Supporting Document(s) Procedure Social History Code Duration Value Status Description Data Source(s ) Smoking 09/21/2020 12:00:00 AM EST Never smoker completed Never s moker NextGen ([facility]) Smoking 09/09/2020 12:00:00 AM EST Former Smoker completed Former Smoker eCW1 ([facility]) Smoking 09/09/2020 12:00:00 AM EST Former Smoker completed Former Smoker eCW1 ([facility]) Smoking 09/09/2020 12:00:00 AM EST Former Smoker completed Former Smoker eCW1 ([facility]) Smoking 09/09/2020 12:00:00 AM EST Former Smoker completed Former Smoker eCW1 ([facility]) Smoking 09/08/2020 12:00:00 AM EST Former Smoker completed Former Smoker eCW1 ([facility]) Smoking 08/30/2020 12:00:00 AM EST Former Smoker completed Former Smoker eCW1 ([facility]) Smoking 08/30/2020 12:00:00 AM EST Former Smoker completed Former Smoker eCW1 ([facility]) Smoking 08/30/2020 12:00:00 AM EST Former Smoker completed Former Smoker eCW1 ([facility]) Smoking 08/30/2020 12:00:00 AM EST Former Smoker completed Former Smoker eCW1 ([facility]) Vital Signs ID Date Data Source UNK Name Value Range Interpretation Code Description Data Source(s) Body mass index (BMI) [Ratio] 31.68 kg/m2 Overweight 31.68 kg/m2 NextGen ([facility]) Body temperature 36.56 Deepthi 36.56 Deepthi NextGen ([facility]) Diastolic blood pressure 77 mm[Hg] 77 mm[Hg] NextGen ([facility]) Systolic blood pressure 124 mm[Hg] 124 mm[Hg] N extGen ([facility]) Body weight 86.364 kg 86.364 kg NextGen ([facility]) Body height 165.10 cm 165.10 cm [facility] Body mass index (BMI) [Ratio] 30.79 kg/m2 Overweight 30.79 kg/m2 NextGen ([facility]) Diastolic blood pressure 60 mm[Hg] 60 mm[Hg] NextGen ([facility]) Systolic blood pressure 118 mm[Hg] 118 mm[Hg] N extGen ([facility]) Body weight 83.915 kg 83.915 kg NextGen ([facility]) Body height 165.10 cm 165.10 cm [facility] Diastolic blood pressure 100 mm[Hg] 100 mm[Hg] eCW1 ([facility]) Systolic blood pressure 110 mm[Hg] 110 mm[Hg] e CW1 ([facility]) Body temperature 98.3 [degF] 98.3 [degF] eCW1 ( [facility]) Respiratory rate 18 /min 18 /min eCW1 ([facility]) Heart rate 126 /min 126 /min eCW1 ([facility]) Body mass index (BMI) [Ratio] 30.95 kg/m2 30.95 kg/m2 eCW1 ([facility]) Body height 65 [in_i] 65 [in_i] eCW1 ([facility]) Body weight 186 [lb_av] 186 [lb_av] eCW1 ([facility]) Diastolic blood pressure 100 mm[Hg] 100 mm[Hg] eCW1 ([facility]) Systolic blood pressure 110 mm[Hg] 110 mm[Hg] e CW1 ([facility]) Body temperature 98.3 [degF] 98.3 [degF] eCW1 ( [facility]) Respiratory rate 18 /min 18 /min eCW1 ([facility]) Heart rate 126 /min 126 /min eCW1 ([facility]) Body mass index (BMI) [Ratio] 30.95 kg/m2 30.95 kg/m2 W1 ([facility]) Body height 65 [in_i] 65 [in_i] eCW1 ([facility]) Body weight 186 [lb_av] 186 [lb_av] eCW1 ([facility]) Diastolic blood pressure 98 mm[Hg] 98 mm[Hg] eCW1 ([facility]) Systolic blood pressure 140 mm[Hg] 140 mm[Hg] e CW1 ([facility]) Body temperature 98.1 [degF] 98.1 [degF] eCW1 ( [facility]) Respiratory rate 18 /min 18 /min eCW1 ([facility]) Heart rate 110 /min 110 /min eCW1 ([facility]) Body mass index (BMI) [Ratio] 31.28 kg/m2 31.28 kg/m2 W1 ([facility]) Body height 65 [in_i] 65 [in_i] eCW1 ([facility]) Body weight 188 [lb_av] 188 [lb_av] eCW1 ([facility]) Diastolic blood pressure 90 mm[Hg] 90 mm[Hg] NextGen ([facility]) Systolic blood pressure 132 mm[Hg] 132 mm[Hg] N extGen ([facility]) Body mass index (BMI) [Ratio] 31.28 kg/m2 Overweight 31.28 kg/m2 NextGen ([facility]) Heart rate 68 /min 68 /min [facility] ([facility]) Diastolic blood pressure 94 mm[Hg] 94 mm[Hg] NextGen ([facility]) Systolic blood pressure 132 mm[Hg] 132 mm[Hg] N extGen ([facility]) Body weight 85.275 kg 85.275 kg NextGen ([facility]) Body height 165.10 cm 165.10 cm NextGen ([facility]) Body mass index (BMI) [Ratio] 31.78 kg/m2 Overweight 31.78 kg/m2 NextGen ([facility]) Diastolic blood pressure 78 mm[Hg] 78 mm[Hg] NextGen ([facility]) Systolic blood pressure 120 mm[Hg] 120 mm[Hg] N extGen ([facility]) Body weight 86.636 kg 86.636 kg NextGen ([facility]) Body height 165.10 cm 165.10 cm NextGen ([facility]) Diastolic blood pressure 75 mm[Hg] 75 mm[Hg] W1 ([facility]) Systolic blood pressure 115 mm[Hg] 115 mm[Hg] e CW1 ([facility]) Body mass index (BMI) [Ratio] 30.12 kg/m2 30.12 kg/m2 W1 ([facility]) Body height 65 [in_us] 65 [in_us] W1 ([facility]) Body weight Measured 181 [lb_av] 181 [lb_av] eC W1 ([facility]) Body mass index (BMI) [Ratio] 31.52 kg/m2 Overweight 31.52 kg/m2 NextGen ([facility]) Diastolic blood pressure 82 mm[Hg] 82 mm[Hg] NextGen ([facility]) Systolic blood pressure 130 mm[Hg] 130 mm[Hg] N extGen ([facility]) Body weight 85.910 kg 85.910 kg NextGen ([facility]) Body height 165.10 cm 165.10 cm NextGen ([facility]) Patient Treatment Plan of Care Planned Activity Planned Date Details Description Data Source (s) Sulfamethoxazole 800 MG / Trimethoprim 160 MG Oral Tab let 09/21/2020 12:00:00 AM EST [facility] Sulfamethoxazole 800 MG / Trimethoprim 160 MG Oral Tab let 09/21/2020 12:00:00 AM EST [facility] NITROFURANTOIN, MACROCRYSTALS 25 MG / Ni trofurantoin, Monohydrate 75 MG Oral Capsule 09/13/2020 12:00:00 AM EST NextG en ([facility]) NITROFURANTOIN, MACROCRYSTALS 25 MG / Ni trofurantoin, Monohydrate 75 MG Oral Capsule 09/13/2020 12:00:00 AM EST NextG en ([facility]) Chlorthalidone 25 MG Oral Tablet 08/30/2020 12:00:00 AM EST eCW1 ([facility]) Chlorthalidone 25 MG Oral Tablet 08/30/2020 12:00:00 AM EST eCW1 ([facility]) Chlorthalidone 25 MG Oral Tablet 08/30/2020 12:00:00 AM EST eCW1 ([facility]) Chlorthalidone 25 MG Oral Tablet 08/30/2020 12:00:00 AM EST eCW1 ([facility]) Chlorthalidone 25 MG Oral Tablet 08/30/2020 12:00:00 AM EST eCW1 ([facility]) medroxyprogesterone acetate 150 MG/ML Injectable Suspe nsion 06/22/2020 12:00:00 AM EDT [facility] medroxyprogesterone acetate 150 MG/ML Injectable Suspe nsion 04/07/2020 12:00:00 AM EDT [facility] medroxyprogesterone acetate 150 MG/ML Injectable Suspe nsion 05/26/2019 12:00:00 AM EDT [facility]
--- OUTSIDE RECORDS SUMMARY | 2020-11-28 11:05 | CCD ---
Author Author [facility] Organization [facility] Address Unknown Phone Unavailable Care Team Providers Care Flatware Maker Name Role Phone Nickolas Clemente Unavailable PROBLEMS Type Condition ICD9-CM Code [id number] Code Onset Dates Condition S tatus SNOMED Code Notes Problem IFG (impaired fasting glucose) R73.01 Active 3 25701249 Problem Macrocytosis D75.89 Active 298795757 Problem Nicotine addiction F17.200 Active 27281376 Problem Erythrocytosis D75.1 Active 512280139 Problem Vitamin D deficiency E55.9 Active 98666256 Problem Hypertension, essential I10 Active 58325559 Problem B12 deficiency E53.8 Active 026635794 Problem Herpetic gingivostomatitis B00.2 Active 26836 007 Problem Tinea versicolor B36.0 Active 26390779 Problem Breast cancer screening Z12.39 Active 42368363 8 Problem Cervical cancer screening Z12.4 Active 423194 001 ALLERGIES Allergen (clinical drug ingredient) Drug/Non Drug Allergy do cumented on EMR Reaction Allergy Type Onset Date Status codeine Codeine Sulfate([facility] Code:[address]-45) red bumb s and itching Drug Allergy Active ENCOUNTERS from 1972 to 2020-08-30 Encounter Location Date Provider Diagnosis [address] [address] Aug, 020 Clemente Olmos IMMUNIZATIONS No Information SOCIAL HISTORY Tobacco Use: Social History Observation Description Date Details (start date - stop date) Former Smoker Sex Assigned At : Social History Observation Description Sex Assigned At Unknown Language: Question Answer Notes Languages spoken: Mohawk Advent: Question Answer Notes Advent No spiritism beliefs that would impact health care. 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 [address] [place] [address] [place] A self [facility] [address] [facility] [address] [place] [facility]
--- OUTSIDE RECORDS SUMMARY | 2020-11-28 11:05 | CCD ---
Author Author [facility] Organization [facility] Address Unknown Phone Unavailable Care Team Providers Care Energy Assistant Name Role Phone Clemente Olmos Unavailable PROBLEMS Type Condition ICD9-CM Code [id number] Code Onset Dates Condition S tatus SNOMED Code Notes Problem IFG (impaired fasting glucose) R73.01 Active 3 29678046 Problem Macrocytosis D75.89 Active 494421659 Problem Nicotine addiction F17.200 Active 57966719 Problem Erythrocytosis D75.1 Active 410111744 Problem Vitamin D deficiency E55.9 Active 10007107 Problem Hypertension, essential I10 Active 25928261 Problem B12 deficiency E53.8 Active 962010700 Problem Herpetic gingivostomatitis B00.2 Active 94258 007 Problem Tinea versicolor B36.0 Active 18229274 Problem Breast cancer screening Z12.39 Active 12805974 8 Problem Cervical cancer screening Z12.4 Active 887826 001 ALLERGIES Allergen (clinical drug ingredient) Drug/Non Drug Allergy do cumented on EMR Reaction Allergy Type Onset Date Status codeine Codeine Sulfate([facility] Code:[address]-67) red bumb s and itching Drug Allergy Active ENCOUNTERS from 1972 to 2020-09-01 Encounter Location Date Provider Diagnosis [address] [address] Jul, Teo Clemente Olmos Hypertension, essential I10 ; Erythrocytosis D75.1 ; B12 deficiency E53.8 ; Macrocytosis D75.89 ; Immunization not carried out because of patient refusal Z28.21 ; Tinea versicolor B36.0 ; Herpetic gingivostomatitis B00.2 ; Nicotine addiction F17.200 ; Vitamin D deficiency E55.9 ; IFG (impaired fasting glucose) R73.01 ; Breast cancer screening Z12.39 and Cervical cancer screening Z12.4 IMMUNIZATIONS No Information SOCIAL HISTORY Tobacco Use: Social History Observation Description Date Details (start date - stop date) Former Smoker Sex Assigned At : Social History Observation Description Sex Assigned At Unknown Language: Question Answer Notes Languages spoken: Tristanian Anabaptism: Question Answer Notes Anabaptism No nondenominational beliefs that would impact health care. Sexual [...] FOR REFERRAL No Information VITAL SIGNS Weight 188 lbs Jul, Height 65 in Jul, BMI 31.28 kg/m2 Jul, Heart Rate 110 /min Jul, Respiratory Rate 18 /min Jul, Temperature 98.1 degrees Fahrenheit Jul, Oximetry 95% Jul, Blood pressure systolic 140 mm Hg Jul, Blood pressure diastolic 98 mm Hg Jul, MEDICATIONS Medication SIG (Take, Route, Frequency, Duration) Start Date En d Date Status Fluconazole 150 MG 2 tabs now and repeat in 1 week Orally Active Vitamin D3 5000 unit 1 tablet Orally Once a day for 30 day(s) Active Chlorthalidone 25 MG 1 tab Orally every morning for 30 day(s) 2019 Active Valtrex 1 GM 2 tablets [...] Information RESULTS No Results REASON FOR VISIT 6 month follow up MEDICAL (GENERAL) HISTORY Type Description Date Medical History obesity Medical History tinea versicolor Medical History impaired fasting glucose Medical History macrocytosis without anemia Medical History Depo Provera use for control Medical History B12 deficiency-12/2011 negative IF, 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 [facility] Medical History hypertension, essential Surgical History none Hospitalization History none Goals Section No Information Health Concerns No Information MEDICAL EQUIPMENT No Information MENTAL STATUS No Information FUNCTIONAL STATUS No Information ASSESSMENTS Encounter Date Diagnosis Notes Jul, B12 deficiency (ICD-10 - E53.8) Jul, Erythrocytosis (ICD-10 - D75.1) Jul, Immunization not carried out because of patient refusal (ICD-10 - Z28.21) Jul, Macrocytosis (ICD-10 - D75.89) Jul, IFG (impaired fasting glucose) (ICD-10 - R73.01) Jul, Hypertension, essential (ICD-10 - I10) Jul, Cervical cancer screening (ICD-10 - Z12. 4) Jul, Breast cancer screening (ICD-10 - Z12.39 ) Jul, Herpetic gingivostomatitis (ICD-10 - B00 .2) Jul, Tinea versicolor (ICD-10 - B36.0) Jul, Vitamin D deficiency (ICD-10 - E55.9) Jul, Nicotine addiction (ICD-10 - F17.200) PLAN OF TREATMENT Medication Medication Name Sig Start Date Stop Date Vitamin B-12 2000 1 tablet Orally Once [...] Orally Twice a day for 30 day(s) Treatment Notes Assessment Notes Clinical Notes Hypertension, essential 08/26/20 10/0.8, 5.011/01/14 repeat BP 150/90 B; therefore, + CTD 25 qAM and repeat BP cb BID BPs in 10D (used CTD given chronic borderline high K), check abd (given erythro), renal US and RA okydpgx24/30/20 given first time elevated and asx and no way to check at home (no precedent caffeine/nicotine/NSAID, EthOH, stress, BUT did take larger serving ramen noodles QHS prior-advised RENE diet prior to next reading) repeat BP in office in 3D (px deferred ABPM) B12 deficiency chronic macrocytosis /erythrocytosis, favor 2 chronic EthOH use, but usually only 1 beer qhsNo FH blood lsvrihshs21/2019 16.1, 108, 7.6, 271K5 srinivasan 9608/2018 r 405 14.8, 40683/2016 14.6, 1055/2016 16.8, 1078/2009 baseline hemoglobin 15.4, MCV 5742308/2019 [place] [address] 5168/2014 290, therefore increased B12 1 to 2 gm QD, favor decreased levels 2 increased EthOH use in -04/2015 (daily)01/2014 4233/2011 14217 B12 315 therefore 1 mg qd hjpmuxe66/2018 5209/2016 45 40834/2009 RBC folate 6499608/2019 sIFE s MCB2, 09/2010 normal SPEP Macrocytosis favor 2 B12 deficien cy and EthOHworkup as per B12 Tinea versicolor recurrent, 2 tanning bed exposureContingency: culture c pwlbybnzkow32/2018 flare (2 tanning bed) resolved flucon02/2017 rxed given similar recurrence in last 3W over anterior/posterior neckline c recheck in 4W for ondcufqyj10/2016 fluconazole 300 now, repeat in 1W c resolution Herpetic gingivostomatitis Stable on sanket cyc abortive rx Nicotine addiction Encouraged to stay o ff Vitamin D deficiency 0-1 serving dietary calcium c Depo use07/2018 38, 9.0 775 36, 8.8, 617/2015 39, 8. 37, 8.5, PTH 38110/2013 26, 9.3 on D3 2.8K, therefore 11/2014 increased to 26, 8.8 therefore D3 2K qd started12/2011 vitamin D 24 therefore calcium/vit D BID startedDoes marr ~15 minutes 3x qW at [facility] osteoporosis IFG (impaired fasting glucose) Continue ADA diet/weight lossfasting BG low 60s, but asx11 5. 5.4, (78, 5)07/2018 5. TEODORO-IR 1 (67, 5)07/2017 5.2, 8112 5.12/2011 5.1August 2009 A1c 5.511 JAXON/creatinine 310/2016 90/70/52445/2013 103//2009 lipids 99/68/136bilogical mother/sister hypothyroid02/2019 2.5, 0. 1.7, 1.012/2015 3.3, 1.04/2016 2.3, TPO 35 (<60), - 2.711 2. TSH 1.6 Breast cancer screening mammograms (done at NR)/CBE per PP06/2020 normal B mammogram per patient (done at NR) Cervical cancer screening P/P as per PP Treatment Notes Test Name Order Date US ABDOMINAL 2020-09-01 [facility] Art., Renal Bilateral 2020-09-01 PLZ RENAL US 2020-09-01 Future Test Test Name Order Date CBC with Differential [id number] JAK2 MUTATIONS FOR PATH 20200913 BCR/ABL SCREEN FOR CML PATH 20200913 ERYTHROPOIETIN [id number] Comprehensive Metabolic Profile (CMP) [id number] Next Appt Details NV BP check and 5-6M, BW NOW Reason: Provider Name:Clemente Olmos, 2020-09-12 0 1:30:00 PM, [address] [place], [address], Insurance Providers Payer Name Payer Address Payer Phone Insured Name Patient Relati onship to Insured Coverage Start Date [facility]age End Date [facility] [address] [facility] [phone] THERESA JOYCE A self MEDICAID [employer] [address] [facility] [id number] THERESA JOYCE A self
--- OUTSIDE RECORDS SUMMARY | 2020-11-28 11:19 | CCD ---
Author Author [facility] Organization [facility] Address Unknown Phone Unavailable Care Team Providers Care Propulsion Systems Engineer Name Role Phone Vivi Garcia ROLFER Unavailable Unavailable Vivi Garciaica ROLFER Unavailable Unavailable Vivi Garciaica ROLFER Unavailable Unavailable Vivi Garciaica ROLFER Unavailable Unavailable Vivi Garciaica ROLFER Unavailable Unavailable Vivi Garcia Kala ROLFER Unavailable Unavailable Lucio, Macey Unavailable Unavailable Lucio, Macey Unavailable Unavailable Lucio, Macey Unavailable Unavailable Lisette Dubois Unavailable Unavailable Lisette Dubois Unavailable Unavailable Lisette Dubois Unavailable Unavailable Lisette Dubois Unavailable Unavailable Lisette Dubois Unavailable Unavailable Lisette Dubois Unavailable Unavailable Lisette Dubois Unavailable Unavailable Lisette Dubois Unavailable Unavailable Lisette Dubois Unavailable Unavailable Lisette Dubois Unavailable Unavailable Lisette Dubois Unavailable Unavailable Lisette Dubois Unavailable Unavailable Lisette Dubois PA Unavailable Unavailable Lisette Dubois PA Unavailable Unavailable Lisette Dubois Unavailable Unavailable Lisette Dubois Unavailable Unavailable Lisette Dubois Unavailable Unavailable Lisette Dubois Unavailable Unavailable Lisette Dubois Unavailable Unavailable Lisette Dubois Unavailable Unavailable Lisette [...] is protected by Article 27-F of the [facility] Public Health law. If you continue you may have access to information: Regarding HIV / AIDS; Provided by facilities licensed or operated by the [facility] Office of Mental Health; or Provided by the [facility] Office for People With Developmental Disabilities. If such information is present, then the following [facility] mandated warning applies: This information has been [...] law may result in a fine or senior living sentence or both. A general authorization for the release of medical or other information is NOT sufficient authorization for further disc losure. Allergies and Adverse Reactions Type Description Substance Reaction Status Data Source(s ) codeine Codeine Sulfate Codeine red bumbs and itching Active eCW1 ([facility]) Family History Family Member Name Family Member Gender Family Member Status Date o f Status Description Data Source(s) Unknown Female Diagnosis 08/30/2015 12:00:00 AM EST [facility] ([facility]) Unknown Female Diagnosis 08/30/2015 12:00:00 AM EST [facility] ([facility]) Unknown Female Diagnosis 06/24/2013 12:00:00 AM EDT [facility] ([facility]) Encounters Encounter Providers Location Date Indications Data Source(s ) Attender: Sarah NORMAN [place] 09:25:00 AM EST - 09/21/2020 09:25:00 AM EST Acute cystitis without hematuria NextGen ([facility]) Acute cystitis without hematuria OutpatientOFFICE VISIT, EST Attender: Sarah NORMAN [place] 09/13/2020 02:15:00 PM EST - 09/13/2020 02:15:00 PM EST Cystitis, unspecified with hematuriaHesitancy of micturitionUrgency of urinationFrequency of micturition NextGen ([facility]) Cystitis, unspecified with hematuria Hesitancy of micturition Urgency of urination Frequency of micturition Unknown [address] [facility], [place] [address] 09/12/2020 12:00:00 AM EST eCW1 ([facility]) Outpatient [address] [facility] [place] [address] 09/12/2020 12:00:00 AM EST eCW1 ([facility]) Attender: Macey NORMAN [place] 020 12:50:00 PM EST - 09/09/2020 12:50:00 PM EST Encounter for surveillance of injectable contraceptive NextGen ([facility]) Encounter for surveillance of injectable contraceptive Outpatient [address] [facility] [place] [address] 09/09/2020 12:00:00 AM EST eCW1 ([facility]) Unknown [address] [facility] [place] [address] 09/08/2020 12:00:00 AM EST eCW1 ([facility]) Unknown [address] [facility] [place] [address] 09/05/2020 12:00:00 AM EST eCW1 ([facility]) Unknown [address] [facility], [place] [address] 08/30/2020 12:00:00 AM EST eCW1 ([facility]) Outpatient [address] [facility] [place] [address] 08/30/2020 12:00:00 AM EST eCW1 ([facility]) [place] [address] [facility] [address] 08/26/2020 12:00:00 AM EDT eCW1 ([facility]) Attender: Kala Garcia ROLFER [facility] 07/14/2020 11:06:00 AM EDT - 07/14/2020 11:06:00 AM EDT NextGen ([facility]) OutpatientPREV VISIT, EST, AGE 40-64 Attender: [facility]ala [facility]ruitt [facility] [place] 06/22/2020 01:00:00 PM EDT - 06/22/2020 01:00:00 PM ED T Body mass index (BMI) 31.0-31.9, adultEncntr for market analysis director 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) (routine) w/o abn findingsEncounter for surveillance of injectable contraceptiveEncounter for oth general cnsl and advice on contraceptionOther sex counselingHuman immunodeficiency virus [HIV] counseling NextGen ([facility]) Body mass index (BMI) 31.0-31.9, adult Encntr for market analysis director 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) (routine) w/o abn findings Encounter for surveillance of injectable contraceptive Encounter for oth general cnsl and advic e on contraception Other sex counseling Human immunodeficiency virus [HIV] couns elijanice Attender: Jenn MCNALLY [facility] 03/28 01:10:00 PM EDT - 04/07/2020 01:10:00 PM EDT Encounter for surveillance of injectable contraceptive [facility] ([facility]) Encounter for surveillance of injectable contraceptive [facility] [place] [address] [facility] [address] 02/25/2020 12:00:00 AM EDT eCW1 ([facility]) [facility] [place] [address] [facility] [address] 02/25/2020 12:00:00 AM EDT eCW1 ([facility]) [facility] [place] [address] [facility] [address] 02/08/2020 12:00:00 AM EDT eCW1 ([facility]) Attender: Kala Jose RAYA PPNCNY [place] 01/13/2020 01:10:00 PM EDT - 01/13/2020 01:10:00 PM EDT Encounter for surveillance of injectable contraceptive NextGen ([facility]) Encounter for surveillance of injectable contraceptive Attender: Jenn MCNALLY PPNCNY [place] 09/29 01:50:00 PM EST - 10/27/2019 01:50:00 PM EST Encounter for surveillance of injectable contraceptive NextGen ([facility]) Encounter for surveillance of injectable contraceptive Medications [...] d (#6) NextGen ([facility]) Medication administered onsite Sulfamethoxazole 800 MG / Trimethoprim 160 MG Oral Tab let 800-160 mg SULFAMETHOXAZOLE/TRIMETHOPRIM 09/21/2020 12:00:00 AM EST tablet 6 TAKE ONE TABLET BY MOUTH TWICE A DAY FOR 3 DAYS TAKE ONE TABLET BY MOUTH TWICE A DAY FOR 3 DAYS SOLD: 09/21/2020 [facility] Sulfamethoxazole 800 MG / Trimethoprim 1 60 MG Oral Tablet sulfamethoxazole 800 mg-trimethoprim 160 mg tablet sulfamethoxazole 800 mg-trimethoprim 160 mg tablet 09/21/2020 12:00:00 AM EST active 1 tab po bid x 3 d (#6) NextGen ([facility]) 100 mg 09/13/2020 12:00:00 AM EST capsule [...] 5 days [facility] ([facility] Medication administered onsite NITROFURANTOIN, MACROCRYSTALS 25 MG / Ni trofurantoin, Monohydrate 75 MG Oral Capsule nitrofurantoin monohydrate/macrocrystals 100 mg capsule nitrofurantoin monohydrate/macrocrystals 100 mg capsule 09/13/2020 12:00:00 AM EST active 1 tab po BID x 5 days [facility] ([facility]) 25 mg 08/30/2020 12:00:00 AM EST tablet 30 TAKE ONE TABLET BY MOUTH EVERY MORNING TAKE ONE TABLET BY MOUTH EVERY MORNING SOLD: 08/31/2020 [facility] Chlorthalidone 25 MG Oral Tablet Chlorthalidone 25 MG 2019 12:00:00 AM EST active Chlorthalidone 25 MG eCW1 ([facility]) Chlorthalidone 25 MG Oral Tablet Chlorthalidone 25 MG 2019 12:00:00 AM EST active Chlorthalidone 25 MG eCW1 ([facility]) Chlorthalidone 25 MG Oral Tablet Chlorthalidone 25 MG 2019 12:00:00 AM EST active Chlorthalidone 25 MG eCW1 ([facility]) Chlorthalidone 25 MG Oral Tablet Chlorthalidone 25 MG 2019 12:00:00 AM EST active Chlorthalidone 25 MG eCW1 ([facility]) Chlorthalidone 25 MG Oral Tablet Chlorthalidone 25 MG 2019 12:00:00 AM EST active Chlorthalidone 25 MG eCW1 ([facility]) Chlorthalidone 25 MG Oral Tablet Chlorthalidone 25 MG 2019 12:00:00 AM EST active Chlorthalidone 25 MG eCW1 ([facility]) Chlorthalidone 25 MG Oral Tablet Chlorthalidone 25 MG 2019 12:00:00 AM EST active Chlorthalidone 25 MG eCW1 ([facility]) Chlorthalidone 25 MG Oral Tablet Chlorthalidone 25 MG 2019 12:00:00 AM EST active Chlorthalidone 25 MG eCW1 ([facility]) Chlorthalidone 25 MG Oral Tablet Chlorthalidone 25 MG 2019 12:00:00 AM EST active Chlorthalidone 25 MG eCW1 ([facility]) 1 gram 08/27/2020 12:00:00 AM EDT tablet [...] 10-13 weeks NextGen ([facility]) 500 mg 06/02/2020 12:00:00 AM EDT tablet [...] 10-13 weeks NextGen ([facility]) 600 mg(1,500mg) -400 unit 02/25/2020 12:00:00 AM [...] 10-13 weeks NextGen ([facility]) Insurance Providers Payer name Policy type / Coverage type Policy ID Covered democrat ID Covered democrat's relationship to patel Policy Patel Plan Information EMEDNY [id number] SP [id number] [facility] [id number] SP [id number] [facility] [id number] SP [id number] [facility] [id number] SP [id number] Medicaid Medicaid 35 self 35 EMEDNY [id number] SP [id number] [facility] [id number] SP [id number] [facility]) O [id number] S [id number] MEDICAID M [id number] S [id number] MEDICARE C [id number] S [id number] [facility]([place]) O [id number] S [id number] [facility] [id number] SP [id number] MEDICAID [id number] SP [id number] ANSI-Medicaid [id number] ANSI-Medicaid [id number] ANSI-Medicaid [id number] ANSI-Medicaid [id number] [facility]-Medicaid [id number] [facility]-Medicaid [id number] [facility]-Medicaid [id number] [facility]-Medicaid [id number] [facility] [id number] MEDICAID P UNAVAILABLE S UNAVAILA BLE [id number] Problems, Conditions, and Diagnoses Code Display Name Description Problem Type Effective Dates Data Source(s) D75.1 [id number] Erythrocytosis Problem 08/30/2020 12:00:00 A M EST [facility] ([facility]) I10 [id number] Hypertension, essential Problem 08/26/2020 1 2:00:00 AM EDT [facility] ([facility]) Surgeries/Procedures Procedure Description Date Indications Data Source(s) CVR Marketing Agent.Svc. STI / H 09/13/2020 12:00:00 AM EST - 09/13/2020 12:00:00 AM EST [facility] ([facility]) CVR Marketing Agent.Svc. Other 09/13/2020 12:00:00 AM EST - 2019 12:00:00 AM EST [facility] ([facility]) CVR Med.Svc. UTI Treatment 09/13/2020 12 :00:00 AM EST - 09/13/2020 12:00:00 AM EST [facility] ([facility]) CVR Med.Svc. Height/Weight 09/13/2020 12 :00:00 AM EST - 09/13/2020 12:00:00 AM EST [facility] ([facility]) CVR Blood Pressure 09/13/2020 12:00:00 AM EST - 2019 12:00:00 AM EST [facility] ([facility]) URINE CULTURE/COLONY COUNT 09/13/2020 12 :00:00 AM EST - 09/13/2020 12:00:00 AM EST [facility] ([facility]) OFFICE VISIT, EST 09/13/2020 12:00:00 AM EST - 020 12:00:00 AM EST [facility] ([facility]) URINALYSIS NONAUTO W/O SCOPE 09/13/2020 12:00:00 AM EST - 09/13/2020 12:00:00 AM EST [facility]Gen ([facility]) ECG ROUTINE ECG W/LEAST 12 LDS W/I&R 09/09/2020 12:00: 00 AM EST eCW1 ([facility]) CVR Marketing Agent.Svc. Other 09/09/2020 12:00:00 AM EST - 2019 12:00:00 AM EST [facility] ([facility]) CVR Marketing Agent.Svc. Nutrition 09/09/2020 12:00: 00 AM EST - 09/09/2020 12:00:00 AM EST [facility] ([facility]) CVR Med.Svc. Height/Weight 09/09/2020 12 :00:00 AM EST - 09/09/2020 12:00:00 AM EST [facility] ([facility]) CVR Blood Pressure 09/09/2020 12:00:00 AM EST - 2019 12:00:00 AM EST [facility] ([facility]) NURSE ONLY DEPO INJ. RN/PATIENT REGISTRATION REP Only 020 12:00:00 AM EST - 09/09/2020 12:00:00 AM EST [facility] ([facility]) Depo/Medroxyprogesterone Inj. 150 Mg Nurse/CA 09/09/2020 12:00:00 AM EST - 09/09/2020 12:00:00 AM EST [facility] ([facility]) CVR BC Ending Method HORM.INJ. 3 MOS 12:00:00 AM EST - 09/09/2020 12:00:00 AM EST [facility] ([facility]) CVR Med.Svc. Extremities 06/22/2020 12:0 0:00 AM EDT - 06/22/2020 12:00:00 AM EDT [facility]Gen ([facility]) CVR Med.Svc. Abdominal Palp. 06/22/2020 12:00:00 AM EDT - 06/22/2020 12:00:00 AM EDT [facility] ([facility]) CVR Med.Svc. Breast Exam 06/22/2020 12:0 0:00 AM EDT - 06/22/2020 12:00:00 AM EDT [facility] ([facility]) CVR Med.Svc. Heart/Lung Ausc. 06/22/2020 12:00:00 AM EDT - 06/22/2020 12:00:00 AM EDT [facility] ([facility]) CVR Med.Svc. Thyroid Palp. 06/22/2020 12 :00:00 AM EDT - 06/22/2020 12:00:00 AM EDT [facility] ([facility]) CVR Med.Svc. Height/Weight 06/22/2020 12 :00:00 AM EDT - 06/22/2020 12:00:00 AM EDT [facility] ([facility]) CVR Blood Pressure 06/22/2020 12:00:00 AM EDT - 2019 12:00:00 AM EDT [facility] ([facility]) NURSE ONLY DEPO INJ. RN/PATIENT REGISTRATION REP Only 020 12:00:00 AM EDT - 06/22/2020 12:00:00 AM EDT [facility] ([facility]) Depo/Medroxyprogesterone Inj. 150 Mg Nurse/CA 06/22/2020 12:00:00 AM EDT - 06/22/2020 12:00:00 AM EDT [facility] ([facility]) CVR BC Ending Method HORM.INJ. 3 MOS 12:00:00 AM EDT - 06/22/2020 12:00:00 AM EDT [facility] ([facility]) HCS Without Test 06/22/2020 12:00:00 AM EDT - 06/22/20 20 12:00:00 AM EDT [facility] ([facility]) PREV VISIT, EST, AGE 40-64 06/22/2020 12 :00:00 AM EDT - 06/22/2020 12:00:00 AM EDT [facility] ([facility]) CVR Marketing Agent.Svc. Other 04/07/2020 12:00:00 AM EDT - 2019 12:00:00 AM EDT [facility] ([facility]) CVR Marketing Agent.Svc. Contraceptive 04/07/2020 12 :00:00 AM EDT - 04/07/2020 12:00:00 AM EDT [facility] ([facility]) CVR Med.Svc. Height/Weight 04/07/2020 12 :00:00 AM EDT - 04/07/2020 12:00:00 AM EDT [facility] ([facility]) CVR Blood Pressure 04/07/2020 12:00:00 AM EDT - 2019 12:00:00 AM EDT [facility] ([facility]) NURSE ONLY DEPO INJ. RN/PATIENT REGISTRATION REP Only 020 12:00:00 AM EDT - 04/07/2020 12:00:00 AM EDT [facility] ([facility]) Depo/Medroxyprogesterone Inj. 150 Mg Nurse/CA 04/07/2020 12:00:00 AM EDT - 04/07/2020 12:00:00 AM EDT [facility] ([facility]) CVR BC Ending Method HORM.INJ. 3 MOS 08/2020 12:00:00 AM EDT - 04/07/2020 12:00:00 AM EDT [facility] ([facility]) Injection Or Lab Only Visit Est 04/07/20 20 12:00:00 AM EDT - 04/07/2020 12:00:00 AM EDT [facility] ([facility]) TeleMedicine Est. Pt. Level 4 02/25/2020 12:00:00 AM E DT eCW1 ([facility]) CVR Marketing Agent.Svc. Other 01/13/2020 12:00:00 AM EDT - 2019 12:00:00 AM EDT [facility]Gen ([facility]) CVR Marketing Agent.Svc. Nutrition 01/13/2020 12:00: 00 AM EDT - 01/13/2020 12:00:00 AM EDT [facility]Gen ([facility]) CVR Marketing Agent.Svc. Contraceptive 01/13/2020 12 :00:00 AM EDT - 01/13/2020 12:00:00 AM EDT [facility] ([facility]) CVR Med.Svc. Height/Weight 01/13/2020 12 :00:00 AM EDT - 01/13/2020 12:00:00 AM EDT [facility] ([facility]) CVR Blood Pressure 01/13/2020 12:00:00 AM EDT - 2019 12:00:00 AM EDT [facility] ([facility]) NURSE ONLY DEPO INJ. RN/PATIENT REGISTRATION REP Only 020 12:00:00 AM EDT - 01/13/2020 12:00:00 AM EDT Next[facility] ([facility]) Depo/Medroxyprogesterone Inj. 150 Mg Nurse/CA 01/13/2020 12:00:00 AM EDT - 01/13/2020 12:00:00 AM EDT [facility] ([facility]) CVR BC Ending Method HORM.INJ. 3 MOS 12:00:00 AM EDT - 01/13/2020 12:00:00 AM EDT NextGen ([facility]) Results ID Date Data Source [id number] 09/13/2020 02:31:10 PM EST NextGen ([facility]) Name Value Range Interpretation Code Description Data Donna rce(s) Supporting Document(s) Color: dark yellow; Glucose: negative; Blood: moderate; pH: 7.5; Protein: 1+; Nitrite: positive; Leukocytes: large Abnormal (applies to non-numeric results) Urine Dipstick NextGen ([facility]) ID Date Data Source [id number] 07/08/2020 12:00:00 AM EDT [facility] Imaging Kala Garcia Dent Remover Patient Name: THERESA JOYCE[address] [place] [address] [facility] [address] [address] Date of Exam: 07/08/2020#: Fax: [phone] EXAM: MAMMO SCREENING WITH CADCLINICAL INFORMATION: Screening.Based on the personal and family history information your patient suppliedat the time of imaging,her lifetime risk of breast cancer estimated by theTyrer-Cuzick model is 21.4%. If anything changes in the personal and/orfamily history, this percentage could increase or decrease. Currently, the[facility] and [employer] recommendadjunctive breast MRI screening starting [...] was read with the assistance of Estella [employer], an FDAapproved computer aided detection system for [...] s moker NextGen ([facility]) Smoking 09/09/2020 12:00:00 AM EST Former Smoker completed Former Smoker eCW1 ([facility]) Smoking 09/09/2020 12:00:00 AM EST Former Smoker completed Former Smoker eCW1 ([facility]) Smoking 09/09/2020 12:00:00 AM EST Former Smoker completed Former Smoker eCW1 ([facility]) Smoking 09/09/2020 12:00:00 AM EST Former Smoker completed Former Smoker eCW1 ([facility]) Smoking 09/08/2020 12:00:00 AM EST Former Smoker completed Former Smoker eCW1 ([facility]) Smoking 08/30/2020 12:00:00 AM EST Former Smoker completed Former Smoker eCW1 ([facility]) Smoking 08/30/2020 12:00:00 AM EST Former Smoker completed Former Smoker eCW1 ([facility]) Smoking 08/30/2020 12:00:00 AM EST Former Smoker completed Former Smoker eCW1 ([facility]) Smoking 08/30/2020 12:00:00 AM EST Former Smoker completed Former Smoker eCW1 ([facility]) Vital Signs ID Date Data Source UNK Name Value Range Interpretation Code Description Data Source(s) Body mass index (BMI) [Ratio] 31.68 kg/m2 Overweight 31.68 kg/m2 Next[facility] ([facility]) Body temperature 36.56 Deepthi 36.56 Deepthi [facility] ([facility]) Diastolic blood pressure 77 mm[Hg] 77 mm[Hg] Next[facility] ([facility]) Systolic blood pressure 124 mm[Hg] 124 mm[Hg] N extGen ([facility]) Body weight 86.364 kg 86.364 kg [facility] ([facility]) Body height 165.10 cm 165.10 cm [facility] ([facility]) Body mass index (BMI) [Ratio] 30.79 kg/m2 Overweight 30.79 kg/m2 Next[facility] ([facility]) Diastolic blood pressure 60 mm[Hg] 60 mm[Hg] Next[facility] ([facility]) Systolic blood pressure 118 mm[Hg] 118 mm[Hg] N extGen ([facility]) Body weight 83.915 kg 83.915 kg [facility] ([facility]) Body height 165.10 cm 165.10 cm NextGen ([facility]) Diastolic blood pressure 100 mm[Hg] 100 mm[Hg] eCW1 ([facility]) Systolic blood pressure 110 mm[Hg] 110 mm[Hg] e CW1 ([facility]) Body temperature 98.3 [degF] 98.3 [degF] eCW1 ( [facility]) Respiratory rate 18 /min 18 /min eCW1 ([facility]) Heart rate 126 /min 126 /min eCW1 ([facility]) Body mass index (BMI) [Ratio] 30.95 kg/m2 30.95 kg/m2 eCW1 ([facility]) Body height 65 [in_i] 65 [in_i] eCW1 ([facility]) Body weight 186 [lb_av] 186 [lb_av] eCW1 ([facility]) Diastolic blood pressure 100 mm[Hg] 100 mm[Hg] eCW1 ([facility]) Systolic blood pressure 110 mm[Hg] 110 mm[Hg] e CW1 ([facility]) Body temperature 98.3 [degF] 98.3 [degF] eCW1 ( [facility]) Respiratory rate 18 /min 18 /min eCW1 ([facility]) Heart rate 126 /min 126 /min [facility]CW1 ([facility] [facility], [facility]) Body mass index (BMI) [Ratio] 30.95 kg/m2 30.95 kg/m2 W1 ([facility]) Body height 65 [in_i] 65 [in_i] eCW1 ([facility]) Body weight 186 [lb_av] 186 [lb_av] eCW1 ([facility]) Diastolic blood pressure 98 mm[Hg] 98 mm[Hg] eCW1 ([facility]) Systolic blood pressure 140 mm[Hg] 140 mm[Hg] e CW1 ([facility]) Body temperature 98.1 [degF] 98.1 [degF] eCW1 ( [facility]) Respiratory rate 18 /min 18 /min eCW1 ([facility]) Heart rate 110 /min 110 /min eCW1 ([facility], [facility]) Body mass index (BMI) [Ratio] 31.28 kg/m2 31.28 kg/m2 W1 ([facility]) Body height 65 [in_i] 65 [in_i] eCW1 ([facility]) Body weight 188 [lb_av] 188 [lb_av] eCW1 ([facility]) Diastolic blood pressure 90 mm[Hg] 90 mm[Hg] NextGen ([facility]) Systolic blood pressure 132 mm[Hg] 132 mm[Hg] N extGen ([facility]) Body mass index (BMI) [Ratio] 31.28 kg/m2 Overweight 31.28 kg/m2 NextGen ([facility]) Heart rate 68 /min 68 /min [facility] ([facility] Diastolic blood pressure 94 mm[Hg] 94 mm[Hg] NextGen ([facility]) Systolic blood pressure 132 mm[Hg] 132 mm[Hg] N extGen ([facility] [place]) Body weight 85.275 kg 85.275 kg NextGen ([facility] Body height 165.10 cm 165.10 cm NextGen ([facility]) Body mass index (BMI) [Ratio] 31.78 kg/m2 Overweight 31.78 kg/m2 NextGen ([facility]) Diastolic blood pressure 78 mm[Hg] 78 mm[Hg] NextGen ([facility]) Systolic blood pressure 120 mm[Hg] 120 mm[Hg] N extGen ([facility]) Body weight 86.636 kg 86.636 kg NextGen ([facility]) Body height 165.10 cm 165.10 cm NextGen ([facility]) Diastolic blood pressure 75 mm[Hg] 75 mm[Hg] eCW1 ([facility]) Systolic blood pressure 115 mm[Hg] 115 mm[Hg] e CW1 ([facility]) Body mass index (BMI) [Ratio] 30.12 kg/m2 30.12 kg/m2 eCW1 ([facility]) Body height 65 [in_us] 65 [in_us] eCW1 ([facility]) Body weight Measured 181 [lb_av] 181 [lb_av] eC W1 ([facility]) Body mass index (BMI) [Ratio] 31.52 kg/m2 Overweight 31.52 kg/m2 NextGen ([facility]) Diastolic blood pressure 82 mm[Hg] 82 mm[Hg] NextGen ([facility]) Systolic blood pressure 130 mm[Hg] 130 mm[Hg] N extGen ([facility]) Body weight 85.910 kg 85.910 kg NextGen ([facility]) Body height 165.10 cm 165.10 cm NextGen ([facility]) Patient Treatment Plan of Care Planned Activity Planned Date Details Description Data Source (s) Sulfamethoxazole 800 MG / Trimethoprim 160 MG Oral Tab let 09/21/2020 12:00:00 AM EST [facility] Sulfamethoxazole 800 MG / Trimethoprim 160 MG Oral Tab let 09/21/2020 12:00:00 AM EST [facility] ([facility] NITROFURANTOIN, MACROCRYSTALS 25 MG / Ni trofurantoin, Monohydrate 75 MG Oral Capsule 09/13/2020 12:00:00 AM EST NextG en ([facility]) NITROFURANTOIN, MACROCRYSTALS 25 MG / Ni trofurantoin, Monohydrate 75 MG Oral Capsule 09/13/2020 12:00:00 AM EST NextG en ([facility]) Chlorthalidone 25 MG Oral Tablet 08/30/2020 12:00:00 AM EST eCW1 ([facility]) Chlorthalidone 25 MG Oral Tablet 08/30/2020 12:00:00 AM EST eCW1 ([facility]) Chlorthalidone 25 MG Oral Tablet 08/30/2020 12:00:00 AM EST eCW1 ([facility]) Chlorthalidone 25 MG Oral Tablet 08/30/2020 12:00:00 AM EST eCW1 ([facility]) Chlorthalidone 25 MG Oral Tablet 08/30/2020 12:00:00 AM EST eCW1 ([facility]) medroxyprogesterone acetate 150 MG/ML Injectable Suspe nsion 06/22/2020 12:00:00 AM EDT [facility] ([facility] medroxyprogesterone acetate 150 MG/ML Injectable Suspe nsion 04/07/2020 12:00:00 AM EDT [facility] ([facility] medroxyprogesterone acetate 150 MG/ML Injectable Suspe nsion 05/26/2019 12:00:00 AM EDT [facility] ([facility]
[2020-11-28] MEDS ORDERED: depo (11:20)
[2020-11-28 13:25] LABS: BASO # 0.1 10^3/uL (0.0-0.2); BASO % 0.8 % (0.0-1.0); EOS % 0.3 % (0.0-3.0); HEMATOCRIT 48.1 % (36.0-47.0); HEMOGLOBIN 16.5 g/dl (12.0-15.5); LYMPH # 1.9 10^3/uL (1.5-5.0); MEAN CORPUSCULAR HEMOGLOBIN 37.7 pg (27.0-33.0); MEAN CORPUSCULAR HGB CONC 34.3 g/dl (32.0-36.5); MEAN CORPUSCULAR VOLUME 109.8 fl (80.0-96.0); MONO # 0.6 10^3/uL (0.0-0.8); MONO % 6.5 % (0.0-5.0); NEUTROPHILS # 6.8 10^3/uL (1.5-8.5); PLATELET COUNT, AUTOMATED 292 10^3/uL (150-450); RED BLOOD COUNT 4.38 10^6/uL (4.00-5.40); WHITE BLOOD COUNT 9.5 10^3/uL (4.0-10.0)
--- NOTE | 2020-11-28 14:26 | REP ---
INDICATION: mid scapular pain. COMPARISON: No comparison study. TECHNIQUE: Portable upright AP chest radiograph. FINDINGS: The lungs are well inflated and free of infiltrate. Pleural angles are sharp. Heart size is normal. Pulmonary vasculature is not increased. There is minimal linear platelike atelectasis in the left base. IMPRESSION: Minimal linear density left base consistent with platelike atelectasis. Otherwise negative chest x-ray.. <Electronically signed by Mil Mtz > 11/28/20 [id number]
[2020-11-28] MEDS ORDERED: NAPR500T6 PO (14:32)
[2020-11-28 14:46] VITALS: BP 177/100
--- NOTE | 2020-11-28 20:46 | ECGEPIP ---
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 Order Number: [id number] Reading MD: Matthew Levy Measurements Intervals [place] Rate: 104 P: 13 ID: 144 QRS: 18 QRSD: 86 T: 37 QT: 322 QTc: 424 Interpretive Statements SINUS TACHYCARDIA POOR R WAVE PROGRESSION MODERATE INTRAVENTRICULAR CONDUCTION DELAY NO PRIORS FOR COMPARISON Electronically Signed on 11-28-2020 20:46:02 EST by Matthew Levy
== END 2020-11-28 14:46 | disposition home or self-care (01) ==
LOC: MERGE 10:51 → M ED 10:51
DX: M54.6 Pain in thoracic spine (principal); R20.2 Paresthesia of skin; R00.0 Tachycardia, unspecified; Z79.3 Long term (current) use of hormonal contraceptives; Z88.5 Allergy status to narcotic agent

== ENCOUNTER → 2020-11-30 | Outpatient (CLI) | payer MEDICARE, MEDICAID ==
[~2020-11-30] MED LIST: NAPR500T6 PO; depo
--- NOTE | 2020-11-30 15:43 | REPPI ---
INDICATION: CERVICALGIA COMPARISON: None. TECHNIQUE: AP, lateral, flexion/extension, bilateral oblique, and open-mouth views. FINDINGS: Reversal of normal lordosis noted along with advanced multilevel degenerative disc osteophyte complexes including osteophytosis, endplate sclerosis, disc space narrowing primarily involving C4-C6. Alignment is maintained. No acute fracture/compression injury or subluxation. Oblique views demonstrate patent neural foramen. Open mouth view demonstrates normal C1-C2 articulation and odontoid process. IMPRESSION: Advanced degenerative spondylosis with reversal of normal lordosis at C4-C6 <Electronically signed by Erik Currie > 11/30/20 153
== END ==
LOC: M PLAIMG 15:12
PROVIDERS: ATTEND Physician Assistant Medical
DX: M50.321 Other cervical disc degeneration at C4-C5 level (principal); M50.322 Other cervical disc degeneration at C5-C6 level
CPT/HCPCS: 72052; G0463

== ENCOUNTER → 2020-12-28 | Outpatient (CLI) | payer MEDICARE, MEDICAID ==
[2020-12-28 14:54] LABS: BASO # 0.1 10^3/uL (0.0-0.2); BASO % 1.2 % (0.0-1.0); EOS # 0.3 10^3/uL (0.0-0.5); EOS % 2.8 % (0.0-3.0); HEMATOCRIT 46.2 % (36.0-47.0); HEMOGLOBIN 15.9 g/dl (12.0-15.5); LYMPH # 3.4 10^3/uL (1.5-5.0); MEAN CORPUSCULAR HEMOGLOBIN 37.3 pg (27.0-33.0); MEAN CORPUSCULAR HGB CONC 34.4 g/dl (32.0-36.5); MEAN CORPUSCULAR VOLUME 108.5 fl (80.0-96.0); MONO # 0.6 10^3/uL (0.0-0.8); NEUTROPHILS # 6.1 10^3/uL (1.5-8.5); NEUTROPHILS % 57.7 % (36.0-66.0); PLATELET COUNT, AUTOMATED 372 10^3/uL (150-450); RED BLOOD COUNT 4.26 10^6/uL (4.00-5.40); WHITE BLOOD COUNT 10.5 10^3/uL (4.0-10.0)
[2020-12-28 15:19] LABS: ALT/SGPT 31 U/L (12-78); BILIRUBIN,TOTAL 0.5 MG/DL (0.2-1.0); BLOOD UREA NITROGEN 15 MG/DL (7-18); CARBON DIOXIDE LEVEL 26 MEQ/L (21-32); CHLORIDE LEVEL 111 MEQ/L (98-107); GLOMERULAR FILTRATION RATE > 60.0 (>58); GLUCOSE, FASTING 82 MG/DL (70-100); NT-PRO BNP 58 PG/ML (<125); POTASSIUM SERUM 4.7 MEQ/L (3.5-5.1); SODIUM LEVEL 142 MEQ/L (136-145)
[2020-12-30 07:05] LABS: JAK2 MUTATIONS FOR PATH SENDOU See Pathology Report
[2020-12-30 08:58] LABS: ALBUMIN 4.25 GM/DL (3.29-5.55); ALBUMIN % 60.7 % (55.8-66.1); ALPHA-1-GLOBULINS 0.28 GM/DL (0.17-0.41); ALPHA-2-GLOBULINS 0.76 GM/DL (0.42-0.99); ALPHA-2-GLOBULINS % 10.9 % (7.1-11.8); BETA-1-GLOBULINS % 7.2 % (4.7-7.2); BETA-2-GLOBULINS 0.43 GM/DL (0.19-0.55); BETA-2-GLOBULINS % 6.1 % (3.2-6.5); GAMMA GLOBULIN % 11.1 % (11.1-18.8); GAMMA GLOBULINS 0.78 GM/DL (0.65-1.58)
[2021-01-01 12:06] LABS: DOPAMINE PLASMA 39 pg/mL (0-48); EPINEPHRINE PLASMA 80 pg/mL (0-62); NOREPINEPHRINE PLASMA 902 pg/mL (0-874)
== END ==
LOC: M LAB 13:11
PROVIDERS: ATTEND Family Medicine
DX: D75.1 Secondary polycythemia (principal); I10 Essential (primary) hypertension

== ENCOUNTER → 2021-01-12 | Outpatient (CLI) | payer MEDICARE, MEDICAID ==
--- NOTE | 2021-01-13 13:28 | SLEEPHOME ---
DATE: 01/12/2021 ORDERED BY: Clemente Olmos MD Diagnostic home sleep testing was performed due to concern for the obstructive sleep apnea syndrome in this patient with a history of erythrocytosis. For testing, a nocturnal T3 respiratory monitoring device was used. Continuous record was made of pulse, oxygen saturation, air flow, chest and abdominal strain, and body position. Nine hours and 59 minutes of data were reviewed. There were 7 hours and 7 minutes marked as time in bed. During the interval marked time in bed, there were 38 respiratory events identified of 10 seconds in duration or greater for a respiratory event index of 5.3. The events were primarily obstructive. Baseline pulse rate was 74. Pulse rate ranged 51 to 128. Baseline saturation was 95%. Saturations fell only to 91% and testing was performed in both the supine and nonsupine positions. IMPRESSION: Abnormal home sleep testing with repetitive respiratory events and oxygen desaturations to 91% with a respiratory event index of 5.3 is consistent with the obstructive sleep apnea syndrome. RECOMMENDATION: Sleep position re-training for avoidance of the supine posture may be helpful as home testing can underestimate the severity of disease. Referral for formal sleep evaluation could be considered. The oxygen desaturation to 91% would not be considered a trigger for erythrocytosis.
== END ==
LOC: M SLEEP HO 10:19
PROVIDERS: ATTEND Family Medicine
DX: D75.1 Secondary polycythemia (principal)

== ENCOUNTER → 2021-03-23 | Outpatient (CLI) | payer MEDICARE, MEDICAID ==
--- NOTE | 2021-03-23 09:27 | REP ---
INDICATION: HEPATIC HEMANGIOMA COMPARISON: 09/07/2020 TECHNIQUE: Real time bee scale ultrasound examination using curved array transducer. FINDINGS: Liver demonstrates coarsened echotexture along with 3 hyperechoic lesions measuring 12 mm, 17 mm, and 20 mm likely representing hemangiomas and essentially unchanged. Pancreas is incompletely evaluated due to interposed bowel gas. The gallbladder is normal and without gallstones, wall thickening, or pericholecystic fluid. No biliary ductal dilatation is appreciated and the common bile duct measures 3.0 mm diameter. Right kidney is normal in reniform shape without hydronephrosis and measures 10.9 x 5.4 x 4.1 cm with small 8 mm cyst and unchanged. No ascites in the visualized right upper quadrant. IMPRESSION: 1. Hepatic hyperechoic lesions similar to prior examination and likely representing hemangiomas. 2. Subcentimeter right renal hypodensity likely representing cyst and unchanged. <Electronically signed by Erik Currie > 03/23/21 0923
== END ==
LOC: M RAD 08:39
PROVIDERS: ATTEND Family Medicine
DX: D18.03 Hemangioma of intra-abdominal structures (principal)

== ENCOUNTER → 2021-06-22 | Outpatient (CLI) | payer MEDICARE, MEDICAID ==
[2021-06-22 14:17] LABS: HEMATOCRIT 50.9 % (36.0-47.0)
[2021-06-22 14:37] LABS: ALBUMIN 3.5 GM/DL (3.2-5.2); ALT/SGPT 33 U/L (12-78); BILIRUBIN,TOTAL 0.5 MG/DL (0.2-1.0); BLOOD UREA NITROGEN 9 MG/DL (7-18); CALCIUM LEVEL 9.1 MG/DL (8.5-10.1); CARBON DIOXIDE LEVEL 26 MEQ/L (21-32); CHLORIDE LEVEL 112 MEQ/L (98-107); CREATININE FOR GFR 0.76 MG/DL (0.55-1.30); GLOMERULAR FILTRATION RATE > 60.0 (>58); GLUCOSE, FASTING 77 MG/DL (70-100); NT-PRO BNP 16 PG/ML (<125); POTASSIUM SERUM 5.1 MEQ/L (3.5-5.1); PTH INTACT 66.6 PG/ML (18.5-88.0); SODIUM LEVEL 142 MEQ/L (136-145); TOTAL 25(OH) VITAMIN D 28.2 NG/ML (30.0-100.0); VITAMIN B12 LEVEL 519 PG/ML (247-911)
[2021-06-22 17:43] LABS: HEMOGLOBIN A1c 5.3 %
== END ==
LOC: M LAB 12:02
PROVIDERS: ATTEND Family Medicine
DX: E53.8 Deficiency of other specified B group vitamins (principal); R73.01 Impaired fasting glucose; I10 Essential (primary) hypertension; E55.9 Vitamin D deficiency, unspecified

== ENCOUNTER → 2021-08-09 | Outpatient (CLI) | payer MEDICARE, MEDICAID ==
[2021-08-09 15:39] LABS: AMORPHOUS SEDIMENT LARGE (NEGATIVE); APPEARANCE, URINE TURBID (CLEAR); BACTERIA, URINE AUTO NEGATIVE (NEGATIVE); BILIRUBIN, URINE AUTO NEGATIVE (NEGATIVE); BLOOD, URINE BLOOD NEGATIVE (NEGATIVE); COLOR, URINE YELLOW (YELLOW); GLUCOSE, URINE (UA) AUTO NEGATIVE (NEGATIVE); KETONE, URINE AUTO TRACE mg/dL (NEGATIVE); LEUKOCYTE ESTERASE, URINE AUTO 1+ (NEGATIVE); NITRITE, URINE AUTO NEGATIVE (NEGATIVE); PROTEIN, URINE AUTO 1+ mg/dL (NEGATIVE); RBC, URINE AUTO 0 /HPF (0-3); SPECIFIC GRAVITY URINE AUTO 1.028 (1.002-1.035); SQUAMOUS EPITHELIAL CELL UR AU 27 /HPF (0-6); WBC, URINE AUTO 0 /HPF (0-3)
== END ==
LOC: M PLALAB 13:47
PROVIDERS: ATTEND Family Medicine
DX: R03.0 Elevated blood-pressure reading, without diagnosis of hypertension (principal)

== ENCOUNTER → 2021-08-11 | Outpatient (CLI) | payer MEDICARE, MEDICAID ==
[2021-08-11 17:45] LABS: BLOOD UREA NITROGEN 13 MG/DL (7-18); CALCIUM LEVEL 9.2 MG/DL (8.5-10.1); CARBON DIOXIDE LEVEL 24 MEQ/L (21-32); CHLORIDE LEVEL 112 MEQ/L (98-107); CREATININE FOR GFR 0.74 MG/DL (0.55-1.30); GLOMERULAR FILTRATION RATE > 60.0 (>58); GLUCOSE, FASTING 75 MG/DL (70-100); POTASSIUM SERUM 4.8 MEQ/L (3.5-5.1); SODIUM LEVEL 141 MEQ/L (136-145)
== END ==
LOC: M PLALAB 14:59
PROVIDERS: ATTEND Nurse Practitioner Family
DX: I10 Essential (primary) hypertension (principal)

== ENCOUNTER → 2021-10-19 | Outpatient (CLI) | payer MEDICARE, MEDICAID ==
[2021-10-19 12:32] LABS: BASO # 0.1 10^3/uL (0.0-0.2); EOS # 0.2 10^3/uL (0.0-0.5); EOS % 2.3 % (0.0-3.0); HEMOGLOBIN 16.6 g/dl (12.0-15.5); LYMPH # 2.8 10^3/uL (1.5-5.0); LYMPH % 34.4 % (24.0-44.0); MEAN CORPUSCULAR HEMOGLOBIN 36.4 pg (27.0-33.0); MEAN CORPUSCULAR HGB CONC 34.6 g/dl (32.0-36.5); MEAN CORPUSCULAR VOLUME 105.3 fl (80.0-96.0); MONO # 0.6 10^3/uL (0.0-0.8); MONO % 7.7 % (2.0-8.0); NEUTROPHILS # 4.5 10^3/uL (1.5-8.5); NEUTROPHILS % 54.4 % (36.0-66.0); PLATELET COUNT, AUTOMATED 334 10^3/uL (150-450); RED BLOOD COUNT 4.56 10^6/uL (4.00-5.40); WHITE BLOOD COUNT 8.2 10^3/uL (4.0-10.0)
[2021-10-19 12:48] LABS: HEMOGLOBIN A1c 5.1 %
[2021-10-19 12:58] LABS: ALBUMIN 3.7 GM/DL (3.2-5.2); ALT/SGPT 28 U/L (12-78); BILIRUBIN,TOTAL 0.7 MG/DL (0.2-1.0); BLOOD UREA NITROGEN 10 MG/DL (7-18); CALCIUM LEVEL 9.3 MG/DL (8.5-10.1); CARBON DIOXIDE LEVEL 22 MEQ/L (21-32); CHLORIDE LEVEL 111 MEQ/L (98-107); CREATININE FOR GFR 0.74 MG/DL (0.55-1.30); FERRITIN 98 NG/ML (8-252); GLOMERULAR FILTRATION RATE > 60.0 (>58); GLUCOSE, FASTING 97 MG/DL (70-100); POTASSIUM SERUM 4.5 MEQ/L (3.5-5.1); SODIUM LEVEL 139 MEQ/L (136-145); TOTAL PROTEIN 7.1 GM/DL (6.4-8.2)
[2021-10-20 08:09] LABS: ERYTHROPOIETIN 11.7 mIU/mL (2.6-18.5); INSULIN LEVEL 6.4 uIU/mL (2.6-24.9)
== END ==
LOC: M LAB 12:00
PROVIDERS: ATTEND Family Medicine
DX: I10 Essential (primary) hypertension (principal); D75.1 Secondary polycythemia; R73.01 Impaired fasting glucose

== ENCOUNTER → 2021-11-28 | Outpatient (REF) | payer MEDICARE, MEDICAID ==
[2021-11-28 17:14] LABS: APPEARANCE, URINE CLOUDY (CLEAR); BACTERIA, URINE AUTO NEGATIVE (NEGATIVE); BILIRUBIN, URINE AUTO NEGATIVE (NEGATIVE); BLOOD, URINE BLOOD 1+ (NEGATIVE); COLOR, URINE AMBER (YELLOW); GLUCOSE, URINE (UA) AUTO NEGATIVE (NEGATIVE); KETONE, URINE AUTO TRACE mg/dL (NEGATIVE); LEUKOCYTE ESTERASE, URINE AUTO 2+ (NEGATIVE); MUCUS, URINE LARGE (NEGATIVE); NITRITE, URINE AUTO NEGATIVE (NEGATIVE); PROTEIN, URINE AUTO 2+ mg/dL (NEGATIVE); RBC, URINE AUTO 21 /HPF (0-3); SPECIFIC GRAVITY URINE AUTO 1.023 (1.002-1.035); SQUAMOUS EPITHELIAL CELL UR AU 13 /HPF (0-6); TRANSITIONAL EPITHELIAL AUTO 1 /HPF; WBC, URINE AUTO TNTC /HPF (0-3)
== END ==
LOC: M LAB REF 16:30
PROVIDERS: ATTEND Physician Assistant Medical
DX: N39.0 Urinary tract infection, site not specified (principal)

== ENCOUNTER → 2022-01-23 | Outpatient (CLI) | payer MEDICARE, MEDICAID | LOC: M RAD 13:04 | PROVIDERS: ATTEND Physician Assistant Medical | DX: R22.41 Localized swelling, mass and lump, right lower limb (principal) ==

== ENCOUNTER 2022-03-02 12:28 | Emergency (ER) | payer MEDICARE, MEDICAID ==
[~2022-03-02] VITALS: Ht 165.1 cm; Wt 87.7 kg
[2022-03-02] MEDS ORDERED: NS 1,000 ML IV ONE (16:20)
[2022-03-02 16:57] LABS: BASO # 0.1 10^3/uL (0.0-0.2); BASO % 1.1 % (0.0-1.0); EOS # 0.1 10^3/uL (0.0-0.5); EOS % 0.8 % (0.0-3.0); HEMATOCRIT 46.9 % (36.0-47.0); HEMOGLOBIN 16.2 g/dl (12.0-15.5); LYMPH # 3.4 10^3/uL (1.5-5.0); LYMPH % 34.4 % (24.0-44.0); MEAN CORPUSCULAR HEMOGLOBIN 37.2 pg (27.0-33.0); MEAN CORPUSCULAR HGB CONC 34.5 g/dl (32.0-36.5); MEAN CORPUSCULAR VOLUME 107.8 fl (80.0-96.0); MONO # 0.6 10^3/uL (0.0-0.8); MONO % 6.4 % (2.0-8.0); NEUTROPHILS # 5.7 10^3/uL (1.5-8.5); PLATELET COUNT, AUTOMATED 301 10^3/uL (150-450); RED BLOOD COUNT 4.35 10^6/uL (4.00-5.40); WHITE BLOOD COUNT 9.9 10^3/uL (4.0-10.0)
[2022-03-02 17:17] LABS: ERYTHROCYTE SEDIMENTATION RATE 1 mm/hr (0-20); HCG, SERUM QUALITATIVE NEGATIVE (NEGATIVE)
[2022-03-02 17:18] LABS: CK-MB VALUE MASS < 1.0 NG/ML (<3.6); CPK CREATINE PHOSPHOKINASE 53 U/L (26-192); MB/CK RELATIVE INDEX 1.89 (< OR =4)
[2022-03-02 17:26] LABS: BLOOD UREA NITROGEN 15 MG/DL (7-18); CALCIUM LEVEL 9.3 MG/DL (8.5-10.1); CARBON DIOXIDE LEVEL 26 MEQ/L (21-32); CHLORIDE LEVEL 110 MEQ/L (98-107); FREE T4 0.95 NG/DL (0.76-1.46); GLOMERULAR FILTRATION RATE > 60.0 (>58); GLUCOSE, FASTING 88 MG/DL (70-100); NT-PRO BNP 23 PG/ML (<125); POTASSIUM SERUM 4.4 MEQ/L (3.5-5.1); SODIUM LEVEL 140 MEQ/L (136-145)
[2022-03-02 19:14] VITALS: BP 166/92
== END 2022-03-02 19:29 | disposition home or self-care (01) ==
LOC: M ED 12:28
DX: R07.89 Other chest pain (principal); I10 Essential (primary) hypertension; R22.43 Localized swelling, mass and lump, lower limb, bilateral; R00.0 Tachycardia, unspecified; Z79.3 Long term (current) use of hormonal contraceptives; Z88.5 Allergy status to narcotic agent

== ENCOUNTER → 2022-03-16 | Outpatient (CLI) | payer MEDICARE, MEDICAID | LOC: M CARPUL 08:25 | PROVIDERS: ATTEND Physician Assistant Medical | DX: R60.9 Edema, unspecified (principal) ==

== ENCOUNTER → 2022-08-30 | Outpatient (CLI) | payer MEDICARE, MEDICAID ==
[2022-08-30 15:24] LABS: BASO # 0.1 10^3/uL (0.0-0.2); BASO % 1.3 % (0.0-1.0); EOS # 0.3 10^3/uL (0.0-0.5); EOS % 2.8 % (0.0-3.0); HEMATOCRIT 50.3 % (36.0-47.0); LYMPH # 3.8 10^3/uL (1.5-5.0); LYMPH % 38.6 % (24.0-44.0); MEAN CORPUSCULAR HEMOGLOBIN 36.6 pg (27.0-33.0); MEAN CORPUSCULAR HGB CONC 33.8 g/dl (32.0-36.5); MEAN CORPUSCULAR VOLUME 108.2 fl (80.0-96.0); MONO # 0.7 10^3/uL (0.0-0.8); MONO % 6.6 % (2.0-8.0); NEUTROPHILS % 50.4 % (36.0-66.0); PLATELET COUNT, AUTOMATED 316 10^3/uL (150-450); RED BLOOD COUNT 4.65 10^6/uL (4.00-5.40); WHITE BLOOD COUNT 9.8 10^3/uL (4.0-10.0)
[2022-08-30 16:10] LABS: ALBUMIN 3.8 GM/DL (3.2-5.2); ALT/SGPT 23 U/L (12-78); BLOOD UREA NITROGEN 11 MG/DL (7-18); CALCIUM LEVEL 9.7 MG/DL (8.5-10.1); CARBON DIOXIDE LEVEL 25 MEQ/L (21-32); CHLORIDE LEVEL 108 MEQ/L (98-107); CREATININE FOR GFR 0.82 MG/DL (0.55-1.30); FERRITIN 83 NG/ML (8-252); GLOMERULAR FILTRATION RATE > 60.0 (>51); GLUCOSE, FASTING 95 MG/DL (70-100); IRON (FE) 155 UG/DL (50-170); MAGNESIUM LEVEL 2.2 MG/DL (1.8-2.4); NT-PRO BNP 41 PG/ML (<125); SODIUM LEVEL 139 MEQ/L (136-145); TOTAL IRON BINDING CAPACITY 456 UG/DL (250-450); TOTAL PROTEIN 7.3 GM/DL (6.4-8.2)
[2022-08-30 16:28] LABS: HEMOGLOBIN A1c 5.2 %
[2022-08-30 18:25] LABS: PTH INTACT 76.9 PG/ML (18.5-88.0); TOTAL 25(OH) VITAMIN D 25.3 NG/ML (30.0-100.0); VITAMIN B12 LEVEL 318 PG/ML (247-911)
== END ==
LOC: M LAB 14:53
PROVIDERS: ATTEND Family Medicine
DX: E53.8 Deficiency of other specified B group vitamins (principal); I10 Essential (primary) hypertension; D75.1 Secondary polycythemia; E55.9 Vitamin D deficiency, unspecified; R73.01 Impaired fasting glucose; Z79.899 Other long term (current) drug therapy

== ENCOUNTER → 2023-02-21 | Outpatient (REF) | payer MEDICARE, MEDICAID | LOC: M SFHCPLAZ 15:03 | PROVIDERS: ATTEND Family Medicine | DX: Z12.11 Encounter for screening for malignant neoplasm of colon (principal) ==

== ENCOUNTER → 2023-03-14 | Outpatient (CLI) | payer MEDICARE, MEDICAID ==
[2023-03-14 15:16] LABS: BASO # 0.1 10^3/uL (0.0-0.2); BASO % 1.1 % (0.0-1.0); EOS # 0.2 10^3/uL (0.0-0.5); EOS % 2.2 % (0.0-3.0); HEMATOCRIT 52.4 % (36.0-47.0); LYMPH # 2.7 10^3/uL (1.5-5.0); LYMPH % 33.9 % (24.0-44.0); MEAN CORPUSCULAR HEMOGLOBIN 36.6 pg (27.0-33.0); MEAN CORPUSCULAR HGB CONC 34.4 g/dl (32.0-36.5); MEAN CORPUSCULAR VOLUME 106.5 fl (80.0-96.0); MONO # 0.6 10^3/uL (0.0-0.8); MONO % 7.5 % (2.0-8.0); NEUTROPHILS # 4.4 10^3/uL (1.5-8.5); NEUTROPHILS % 55.1 % (36.0-66.0); PLATELET COUNT, AUTOMATED 286 10^3/uL (150-450); RED BLOOD COUNT 4.92 10^6/uL (4.00-5.40); WHITE BLOOD COUNT 8.1 10^3/uL (4.0-10.0)
[2023-03-14 15:48] LABS: ALBUMIN 3.7 G/DL (3.2-5.2); ALKALINE PHOSPHATASE 83 U/L (46-116); ALT/SGPT 22 U/L (7.0-40); AST/SGOT < 8 U/L (<34); BILIRUBIN,TOTAL 1.4 MG/DL (0.3-1.2); BLOOD UREA NITROGEN 12 MG/DL (9-23); CALCIUM LEVEL 9.3 MG/DL (8.5-10.1); CARBON DIOXIDE LEVEL 24 MMOL/L (20-31); CHLORIDE LEVEL 106 MMOL/L (98-107); CREATININE FOR GFR 0.79 MG/DL (0.55-1.30); GLOMERULAR FILTRATION RATE > 60.0 (>51); GLUCOSE, FASTING 82 MG/DL (60-100); POTASSIUM SERUM 4.3 MMOL/L (3.5-5.1); PTH INTACT 58.5 PG/ML (18.5-88.0); SODIUM LEVEL 139 MMOL/L (136-145); TOTAL PROTEIN 6.8 G/DL (5.7-8.2)
[2023-03-14 15:50] LABS: VITAMIN B12 LEVEL 472 PG/ML (211-911)
[2023-03-16 07:07] LABS: ERYTHROPOIETIN 2.9 mIU/mL (2.6-18.5)
== END ==
LOC: M LAB 13:42
PROVIDERS: ATTEND Family Medicine
DX: I50.32 Chronic diastolic (congestive) heart failure (principal); D75.1 Secondary polycythemia; E55.9 Vitamin D deficiency, unspecified; E53.8 Deficiency of other specified B group vitamins

== ENCOUNTER → 2023-08-07 | Outpatient (CLI) | payer MEDICARE, MEDICAID ==
[2023-08-07 13:29] LABS: BASO # 0.1 10^3/uL (0.0-0.2); BASO % 1.1 % (0.0-1.0); EOS # 0.1 10^3/uL (0.0-0.5); EOS % 1.5 % (0.0-3.0); HEMATOCRIT 46.1 % (36.0-47.0); HEMOGLOBIN 16.1 g/dl (12.0-15.5); LYMPH # 3.2 10^3/uL (1.5-5.0); LYMPH % 34.6 % (24.0-44.0); MEAN CORPUSCULAR HEMOGLOBIN 36.8 pg (27.0-33.0); MEAN CORPUSCULAR HGB CONC 34.9 g/dl (32.0-36.5); MEAN CORPUSCULAR VOLUME 105.3 fl (80.0-96.0); MONO # 0.6 10^3/uL (0.0-0.8); MONO % 6.9 % (2.0-8.0); NEUTROPHILS # 5.1 10^3/uL (1.5-8.5); NEUTROPHILS % 55.7 % (36.0-66.0); PLATELET COUNT, AUTOMATED 325 10^3/uL (150-450); RED BLOOD COUNT 4.38 10^6/uL (4.00-5.40); WHITE BLOOD COUNT 9.1 10^3/uL (4.0-10.0)
[2023-08-07 13:57] LABS: ALBUMIN 3.7 G/DL (3.2-5.2); ALKALINE PHOSPHATASE 65 U/L (46-116); ALT/SGPT 24 U/L (7.0-40); AST/SGOT 12 U/L (<34); BILIRUBIN,DIRECT 0.3 MG/DL (<0.4); BILIRUBIN,TOTAL 0.7 MG/DL (0.3-1.2); BLOOD UREA NITROGEN 15 MG/DL (9-23); CALCIUM LEVEL 9.1 MG/DL (8.5-10.1); CARBON DIOXIDE LEVEL 23 MMOL/L (20-31); CHLORIDE LEVEL 111 MMOL/L (98-107); CREATININE FOR GFR 0.65 MG/DL (0.55-1.30); GLOMERULAR FILTRATION RATE > 60.0 (>51); GLUCOSE, FASTING 87 MG/DL (60-100); IRON (FE) 128 UG/DL (50-170); PERCENT SATURATION 36.9 % (13.2-45.0); POTASSIUM SERUM 4.5 MMOL/L (3.5-5.1); SODIUM LEVEL 141 MMOL/L (136-145); TOTAL IRON BINDING CAPACITY 347 UG/DL (250-425); TOTAL PROTEIN 6.7 G/DL (5.7-8.2)
[2023-08-07 13:58] LABS: FREE T4 1.03 NG/DL (0.89-1.76)
[2023-08-07 13:59] LABS: FERRITIN 83.9 NG/ML (7.3-270.7); THYROID STIMULATING HORMONE 2.092 uIU/ML (0.55-4.78)
== END ==
LOC: M LAB 12:44
PROVIDERS: ATTEND Family Medicine
DX: D75.1 Secondary polycythemia (principal); I50.32 Chronic diastolic (congestive) heart failure; R73.01 Impaired fasting glucose; I11.0 Hypertensive heart disease with heart failure; K76.0 Fatty (change of) liver, not elsewhere classified

== ENCOUNTER → 2023-08-28 | Outpatient (CLI) | payer MEDICARE, MEDICAID | LOC: M CARPUL 08:52 | PROVIDERS: ATTEND Family Medicine | DX: D75.1 Secondary polycythemia (principal) ==

== ENCOUNTER → 2023-12-17 | Outpatient (REF) | payer MEDICARE, MEDICAID | LOC: M SFHCPLAZ 13:14 | PROVIDERS: ATTEND Family Medicine | DX: I50.32 Chronic diastolic (congestive) heart failure (principal); E53.8 Deficiency of other specified B group vitamins; R73.01 Impaired fasting glucose; E55.9 Vitamin D deficiency, unspecified; D75.1 Secondary polycythemia ==

== ENCOUNTER → 2023-12-23 | Outpatient (CLI) | payer MEDICARE, MEDICAID ==
[2023-12-23 12:02] LABS: BASO # 0.1 10^3/uL (0.0-0.2); BASO % 1.1 % (0.0-1.0); EOS # 0.1 10^3/uL (0.0-0.5); EOS % 1.5 % (0.0-3.0); HEMATOCRIT 48.5 % (36.0-47.0); LYMPH # 2.9 10^3/uL (1.5-5.0); LYMPH % 36.4 % (24.0-44.0); MEAN CORPUSCULAR HEMOGLOBIN 36.8 pg (27.0-33.0); MEAN CORPUSCULAR HGB CONC 35.1 g/dl (32.0-36.5); MONO # 0.6 10^3/uL (0.0-0.8); MONO % 7.1 % (2.0-8.0); NEUTROPHILS # 4.2 10^3/uL (1.5-8.5); NEUTROPHILS % 53.6 % (36.0-66.0); PLATELET COUNT, AUTOMATED 297 10^3/uL (150-450); RED BLOOD COUNT 4.62 10^6/uL (4.00-5.40); WHITE BLOOD COUNT 7.9 10^3/uL (4.0-10.0)
[2023-12-23 12:14] LABS: HEMATOCRIT 48.5 % (36.0-47.0)
[2023-12-23 12:31] LABS: ALBUMIN 3.6 G/DL (3.2-5.2); ALKALINE PHOSPHATASE 63 U/L (46-116); ALT/SGPT 17 U/L (7.0-40); AST/SGOT 15 U/L (<34); BILIRUBIN,TOTAL 1.5 MG/DL (0.3-1.2); BLOOD UREA NITROGEN 15 MG/DL (9-23); CALCIUM LEVEL 9.3 MG/DL (8.5-10.1); CARBON DIOXIDE LEVEL 22 MMOL/L (20-31); CHLORIDE LEVEL 110 MMOL/L (98-107); CREATININE FOR GFR 0.71 MG/DL (0.55-1.30); GLOMERULAR FILTRATION RATE > 60.0 (>51); GLUCOSE, FASTING 94 MG/DL (60-100); MAGNESIUM LEVEL 1.9 MG/DL (1.8-2.4); POTASSIUM SERUM 4.4 MMOL/L (3.5-5.1); SODIUM LEVEL 139 MMOL/L (136-145); TOTAL 25(OH) VITAMIN D 29.3 NG/ML (20.0-100.0); TOTAL PROTEIN 6.5 G/DL (5.7-8.2); VITAMIN B12 LEVEL 475 PG/ML (211-911)
== END ==
LOC: M LAB 11:22
PROVIDERS: ATTEND Family Medicine
DX: E53.8 Deficiency of other specified B group vitamins (principal); I50.32 Chronic diastolic (congestive) heart failure; E55.9 Vitamin D deficiency, unspecified; R73.01 Impaired fasting glucose; D75.1 Secondary polycythemia

== ENCOUNTER → 2024-05-09 | Outpatient (REF) | payer MEDICARE ==
[2024-05-09 20:06] LABS: APPEARANCE, URINE HAZY (CLEAR); BACTERIA, URINE AUTO NEGATIVE (NEGATIVE); BILIRUBIN, URINE AUTO NEGATIVE (NEGATIVE); BLOOD, URINE BLOOD 1+ (NEGATIVE); COLOR, URINE AMBER (YELLOW); GLUCOSE, URINE (UA) AUTO NEGATIVE (NEGATIVE); KETONE, URINE AUTO TRACE mg/dL (NEGATIVE); LEUKOCYTE ESTERASE, URINE AUTO 2+ (NEGATIVE); MUCUS, URINE LARGE (NEGATIVE); NITRITE, URINE AUTO NEGATIVE (NEGATIVE); PROTEIN, URINE AUTO 1+ mg/dL (NEGATIVE); RBC, URINE AUTO 2 /HPF (0-3); SPECIFIC GRAVITY URINE AUTO 1.021 (1.002-1.035); SQUAMOUS EPITHELIAL CELL UR AU 8 /HPF (0-6); WBC, URINE AUTO 32 /HPF (0-3)
== END ==
LOC: M LAB REF 19:32
PROVIDERS: ATTEND Physician Assistant Medical
DX: N39.0 Urinary tract infection, site not specified (principal)

== ENCOUNTER → 2024-05-25 | Outpatient (REF) | payer MEDICARE, MEDICAID | LOC: M SFHCPLAZ 15:01 | PROVIDERS: ATTEND Family Medicine | DX: K76.0 Fatty (change of) liver, not elsewhere classified (principal); I10 Essential (primary) hypertension; D75.1 Secondary polycythemia ==

== ENCOUNTER → 2024-06-18 | Outpatient (CLI) | payer MEDICARE, MEDICAID | LOC: M RAD 13:54 | PROVIDERS: ATTEND Family Medicine | DX: Z12.2 Encounter for screening for malignant neoplasm of respiratory organs (principal); Z87.891 Personal history of nicotine dependence; J98.11 Atelectasis; I70.0 Atherosclerosis of aorta ==

== ENCOUNTER → 2024-06-25 | Outpatient (CLI) | payer MEDICARE, MEDICAID ==
[2024-06-25 11:43] LABS: BASO # 0.1 10^3/uL (0.0-0.2); BASO % 1.1 % (0.0-1.0); EOS # 0.1 10^3/uL (0.0-0.5); EOS % 1.2 % (0.0-3.0); HEMATOCRIT 48.3 % (36.0-47.0); HEMOGLOBIN 16.7 g/dl (12.0-15.5); LYMPH % 36.2 % (24.0-44.0); MEAN CORPUSCULAR HEMOGLOBIN 36.3 pg (27.0-33.0); MEAN CORPUSCULAR HGB CONC 34.6 g/dl (32.0-36.5); MONO # 0.6 10^3/uL (0.0-0.8); MONO % 7.4 % (2.0-8.0); NEUTROPHILS # 4.4 10^3/uL (1.5-8.5); NEUTROPHILS % 53.7 % (36.0-66.0); PLATELET COUNT, AUTOMATED 280 10^3/uL (150-450); WHITE BLOOD COUNT 8.1 10^3/uL (4.0-10.0)
[2024-06-25 12:07] LABS: ALBUMIN 3.4 G/DL (3.2-5.2); ALKALINE PHOSPHATASE 67 U/L (46-116); ALT/SGPT 23 U/L (7.0-40); AST/SGOT 10 U/L (<34); BILIRUBIN,TOTAL 1.1 MG/DL (0.3-1.2); BLOOD UREA NITROGEN 10 MG/DL (9-23); CALCIUM LEVEL 9.3 MG/DL (8.5-10.1); CARBON DIOXIDE LEVEL 23 MMOL/L (20-31); CHLORIDE LEVEL 113 MMOL/L (98-107); CREATININE FOR GFR 0.63 MG/DL (0.55-1.30); GLOMERULAR FILTRATION RATE > 60.0 (>51); GLUCOSE, FASTING 92 MG/DL (60-100); POTASSIUM SERUM 4.3 MMOL/L (3.5-5.1); SODIUM LEVEL 139 MMOL/L (136-145); TOTAL PROTEIN 6.3 G/DL (5.7-8.2)
[2024-06-25 12:09] LABS: FERRITIN 109.3 NG/ML (7.3-270.7)
== END ==
LOC: M LAB 11:10
PROVIDERS: ATTEND Family Medicine
DX: K76.0 Fatty (change of) liver, not elsewhere classified (principal); D75.1 Secondary polycythemia; I10 Essential (primary) hypertension

== ENCOUNTER 2024-12-29 07:24 | Emergency (ER) | payer MEDICARE, MEDICAID ==
[~2024-12-29] VITALS: Ht 165.1 cm; Wt 88.0 kg
[~2024-12-29 07:24] MED LIST changes: +NAPR-1405 PO; -NAPR500T6 PO
[2024-12-29 07:27] VITALS: TEMP 97.8
[2024-12-29] MEDS ORDERED: ASPI81CH48 (07:30)
[2024-12-29] MEDS ORDERED: CYAN-1 (07:30)
[2024-12-29] MEDS ORDERED: D-3-50003 (07:30)
[2024-12-29] MEDS ORDERED: LOSA50TA28 (07:30)
[2024-12-29] MEDS ORDERED: DEPO150I12 IM (07:34)
[2024-12-29 08:06] LABS: BASO # 0.1 10^3/uL (0.0-0.2); BASO % 1.1 % (0.0-1.0); EOS # 0.1 10^3/uL (0.0-0.5); EOS % 1.1 % (0.0-3.0); HEMATOCRIT 51.8 % (36.0-47.0); HEMOGLOBIN 17.9 g/dl (12.0-15.5); LYMPH # 3.2 10^3/uL (1.5-5.0); LYMPH % 40.1 % (24.0-44.0); MEAN CORPUSCULAR HEMOGLOBIN 36.4 pg (27.0-33.0); MEAN CORPUSCULAR HGB CONC 34.6 g/dl (32.0-36.5); MEAN CORPUSCULAR VOLUME 105.3 fl (80.0-96.0); MONO # 0.5 10^3/uL (0.0-0.8); MONO % 6.7 % (2.0-8.0); NEUTROPHILS % 50.6 % (36.0-66.0); PLATELET COUNT, AUTOMATED 314 10^3/uL (150-450); RED BLOOD COUNT 4.92 10^6/uL (4.00-5.40); WHITE BLOOD COUNT 7.9 10^3/uL (4.0-10.0)
[2024-12-29 08:37] LABS: BLOOD UREA NITROGEN 12 MG/DL (9-23); CARBON DIOXIDE LEVEL 22 MMOL/L (20-31); CHLORIDE LEVEL 110 MMOL/L (98-107); CK-MB VALUE MASS < 1.0 NG/ML (<3.6); GLOMERULAR FILTRATION RATE > 60.0 (>51); GLUCOSE, FASTING 107 MG/DL (60-100); POTASSIUM SERUM 4.2 MMOL/L (3.5-5.1); SODIUM LEVEL 140 MMOL/L (136-145)
[2024-12-29 08:50] LABS: CPK CREATINE PHOSPHOKINASE 35 U/L (34-145); MB/CK RELATIVE INDEX 2.85 (< OR =4)
[2024-12-29 09:26] LABS: CK-MB VALUE MASS < 1.0 NG/ML (<3.6)
[2024-12-29 09:27] LABS: CPK CREATINE PHOSPHOKINASE 33 U/L (34-145); MB/CK RELATIVE INDEX 3.03 (< OR =4)
[2024-12-29] MEDS ORDERED: ISOVUE-370 76% 100ML VIAL As Ordered ONE (13:12)
[2024-12-29 14:30] VITALS: BP 164/95; O2SAT 96
== END 2024-12-29 14:49 | disposition home or self-care (01) ==
LOC: M ED 07:24
DX: R07.89 Other chest pain (principal); I11.0 Hypertensive heart disease with heart failure; I50.9 Heart failure, unspecified; Z88.5 Allergy status to narcotic agent; R00.0 Tachycardia, unspecified; Z79.899 Other long term (current) drug therapy
CPT/HCPCS: 36415; 71045; 71275; 80048; 82550; 82553; 84484; 85025; 93005; 93041; 94760; 99285; Q9967

== ENCOUNTER → 2024-12-31 | Outpatient (CLI) | payer MEDICARE, MEDICAID ==
[~2024-12-31] MED LIST changes: +ASPI81CH48; +CYAN-1; +D-3-50003; +DEPO150I12 IM; +LOSA50TA28
== END ==
LOC: M RAD 08:20
PROVIDERS: ATTEND Family Medicine
DX: K76.0 Fatty (change of) liver, not elsewhere classified (principal); K76.89 Other specified diseases of liver

== ENCOUNTER → 2025-01-03 | Outpatient (CLI) | payer MEDICARE, MEDICAID ==
[2025-01-03 12:11] LABS: BASO # 0.1 10^3/uL (0.0-0.2); EOS # 0.1 10^3/uL (0.0-0.5); EOS % 0.8 % (0.0-3.0); HEMATOCRIT 51.5 % (36.0-47.0); HEMOGLOBIN 18.2 g/dl (12.0-15.5); LYMPH # 3.7 10^3/uL (1.5-5.0); LYMPH % 38.9 % (24.0-44.0); MEAN CORPUSCULAR HEMOGLOBIN 37.4 pg (27.0-33.0); MEAN CORPUSCULAR HGB CONC 35.3 g/dl (32.0-36.5); MONO # 0.7 10^3/uL (0.0-0.8); MONO % 6.9 % (2.0-8.0); NEUTROPHILS # 4.9 10^3/uL (1.5-8.5); NEUTROPHILS % 52.1 % (36.0-66.0); PLATELET COUNT, AUTOMATED 275 10^3/uL (150-450); RED BLOOD COUNT 4.86 10^6/uL (4.00-5.40); WHITE BLOOD COUNT 9.5 10^3/uL (4.0-10.0)
[2025-01-03 12:40] LABS: ALBUMIN 3.7 G/DL (3.2-5.2); ALKALINE PHOSPHATASE 72 U/L (35-104); ALT/SGPT 21 U/L (7.0-40); AST/SGOT 14 U/L (<34); BILIRUBIN,TOTAL 1.1 MG/DL (0.3-1.2); BLOOD UREA NITROGEN 12 MG/DL (9-23); CALCIUM LEVEL 9.6 MG/DL (8.5-10.1); CARBON DIOXIDE LEVEL 26 MMOL/L (20-31); CHLORIDE LEVEL 109 MMOL/L (98-107); CREATININE FOR GFR 0.66 MG/DL (0.55-1.30); GLOMERULAR FILTRATION RATE > 60.0 (>51); GLUCOSE, FASTING 94 MG/DL (60-100); POTASSIUM SERUM 4.4 MMOL/L (3.5-5.1); SODIUM LEVEL 142 MMOL/L (136-145)
[2025-01-03 12:43] LABS: TOTAL 25(OH) VITAMIN D 33.9 NG/ML (20.0-100.0)
[2025-01-03 12:44] LABS: FERRITIN 96.2 NG/ML (7.3-270.7); VITAMIN B12 LEVEL 688 PG/ML (211-911)
== END ==
LOC: M LAB 11:53
PROVIDERS: ATTEND Family Medicine
DX: I10 Essential (primary) hypertension (principal); D50.9 Iron deficiency anemia, unspecified

== ENCOUNTER → 2025-06-20 | Outpatient (CLI) | payer MEDICARE, MEDICAID ==
[2025-06-20 11:41] LABS: BASO # 0.1 10^3/uL (0.0-0.2); BASO % 1.1 % (0.0-1.0); EOS # 0.1 10^3/uL (0.0-0.5); EOS % 0.9 % (0.0-3.0); LYMPH # 3.6 10^3/uL (1.5-5.0); LYMPH % 35.0 % (24.0-44.0); MONO # 0.7 10^3/uL (0.0-0.8); MONO % 6.6 % (2.0-8.0); NEUTROPHILS # 5.8 10^3/uL (1.5-8.5); NEUTROPHILS % 56.1 % (36.0-66.0); PLATELET COUNT, AUTOMATED 309 10^3/uL (150-450)
[2025-06-20 12:03] LABS: ESTIMATED AVERAGE GLUCOSE 100.0 MG/DL (60-110)
[2025-06-20 12:08] LABS: ALT/SGPT 20 U/L (7.0-40); AST/SGOT 17 U/L (<34); CALCIUM LEVEL 9.0 MG/DL (8.5-10.1); CARBON DIOXIDE LEVEL 23 MMOL/L (20-31); CHLORIDE LEVEL 111 MMOL/L (98-107); CREATININE FOR GFR 0.76 MG/DL (0.55-1.30); GLOMERULAR FILTRATION RATE > 90.0 (>51); POTASSIUM SERUM 4.4 MMOL/L (3.5-5.1); SODIUM LEVEL 142 MMOL/L (136-145)
[2025-06-20 12:09] LABS: PTH INTACT 77.4 PG/ML (18.5-88.0)
[2025-06-20 12:10] LABS: TOTAL 25(OH) VITAMIN D 29.0 NG/ML (20.0-100.0)
[2025-06-20 12:11] LABS: VITAMIN B12 LEVEL 427 PG/ML (211-911)
[2025-06-23 07:45] LABS: JAK2 MUTATIONS FOR PATH SENDOU See Pathology Report
[2025-06-23 15:32] LABS: ERYTHROPOIETIN 4.8 mIU/mL (2.6-18.5)
[2025-06-24 18:02] LABS: ENHANCED LIVER FIBROSIS SCORE 9.07 (<9.80)
== END ==
LOC: M LAB 10:57
PROVIDERS: ATTEND Family Medicine
DX: D75.1 Secondary polycythemia (principal); I10 Essential (primary) hypertension; K76.0 Fatty (change of) liver, not elsewhere classified; R73.01 Impaired fasting glucose; E55.9 Vitamin D deficiency, unspecified; E53.8 Deficiency of other specified B group vitamins